=== PATIENT | male | born 1945 | race Caucasian/White ===

== ENCOUNTER 2020-03-21 17:18 | Emergency (ER) | payer MEDICARE, SELFPAY ==
[2020-03-21 17:31] VITALS: BP 187/81; PULSE 95; RESP 16; TEMP 37; O2SAT 98; BMI 22.8
--- NOTE | 2020-03-21 17:34 | CT_ITS ---
EXAMINATION: CT CERVICAL SPINE WITHOUT CONTRAST CLINICAL INFORMATION: Headache. Fall. COMPARISON: None TECHNIQUE: Multidetector CT imaging of the cervical spine was performed without the use of intravenous contrast. Coronal and sagittal reformats are reviewed. This CT examination was performed using dose optimization techniques as appropriate, variously including the following: *Automated exposure control *Adjustment of mA and/or kV according to patient size (this includes techniques or standardized protocols for targeted exams where dose is matched to indication/reason for exam; i.e. extremities or head) *Use of iterative reconstruction technique DLP: 432 mGy-cm FINDINGS: No acute fracture or subluxation. There is degenerative kyphosis of the cervical spine centered at C4-C5. Atlantooccipital alignment maintained. 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 Small endplate ossified is present at C4-C5, C5-C6 and C6-C7 with accompanying of vertebral arthrosis leading to at least mild bilateral foraminal narrowing at these levels. There is slight anterolisthesis of C3 on C4, and likely mild central canal stenosis at this level. Paraspinal soft tissues unremarkable. CT/CT cervical spine wo con IMPRESSION: No acute fracture or subluxation. Cervical spondylosis as described.
--- NOTE | 2020-03-21 17:34 | ED.AMS ---
HPI - Altered Mental Status General Chief Complaint: Fall Stated Complaint: general weakness, fall Time Seen by Provider: 03/21/20 17:40 Source: EMS Mode of arrival: EMS Limitations: no limitations History of Present Illness HPI narrative: 74-year-old male with past medical history of chronic migraines on morphine for pain management, anxiety and hypertension presents via EMS after a fall with an unknown down time. Patient believes that he was only out for 45 minutes, son was unable to contact him throughout the day and called the police department for a wellness check. Patient does report having all of his teeth pulled out approximately 1 week ago for dentures. Patient is covered in dirt, pants are visibly soiled with dirt and smells of urine, and his clothes are all wet. He is answering questions appropriately but needs redirection, is tremors, but describes no pain, chest pain or pressure, palpitations, shortness of breath, abdominal pain, abdominal distention, dysuria, fevers or chills. Related Data Home Medications Medication Instructions Recorded Confirmed alprazolam 0.5 mg PO DAILY 03/21/20 03/21/20 bupropion HCl 300 mg PO DAILY 03/21/20 03/21/20 methylphenidate HCl 1 tab PO QAM 03/21/20 03/21/20 morphine 1 cap PO BID 03/21/20 03/21/20 trazodone 100 mg PO DAILY 03/21/20 03/21/20 Allergies Allergy/AdvReac Type Severity Reaction Status Date / Time shellfish derived Allergy Intermediate GI S/E Verified 03/21/20 21:58 [SHELLFISH DERIVED] pollen extracts [POLLEN] Allergy Mild RUNNY NOSE Verified 03/21/20 21:58 Review of Systems Review of Systems: Constitutional: No Fever, No Chills ENT/Mouth: No Ear Pain, No Hoarseness, No sore throat Eyes: No Eye Pain, No Swelling, No Redness, No Foreign Body Cardiovascular: No Chest Pain, No SOB Respiratory: No Cough, No Dyspnea Gastrointestinal: No Nausea, No Vomiting, No Diarrhea, No abdominal Pain Genitourinary: No Dysuria, No Hematuria Musculoskeletal: No joint pain, No Myalgias, No Joint Swelling Skin: No Skin lacerations, No rash Neuro: No Weakness, No Numbness, No Paresthesias, No Loss of Consciousness, No Dizziness, No Headache Psych: No Anxiety/Panic, No Depression Heme/Lymph: no easy bruising, no Lymphadenopathy Endocrine: No Polyuria, No Polydipsia PMF Past Medical History Attestation statement: The following information was validated with the patient. Medical History Anxiety Hypertension Migraine Social History Social History Smoked in Last 30 Days: No Advance Directives: No Advance Directives Information Provided: Yes Physical Exam Vital Signs: Vital Signs: Last Vital Signs Temp 98.6 F 03/21/20 17:31 Pulse 93 03/22/20 00:07 Resp 18 03/22/20 00:07 BP 126/66 03/22/20 00:07 Pulse Ox 95 03/22/20 00:07 Body Mass Index 22.8 Appearance: Alert. Oriented X3. Mild distress. Head: Normal external exam. Normocephalic. Atraumatic. Eyes: PERRLA. EOMI. Conjunctiva and sclera normal. Eyelids normal. ENT: TM's Normal. Pharynx normal. Uvula midline. Moist mucous membranes. No trismus noted. No drooling noted. No muffled voice noted. Neck: Normal inspection. Neck supple. No adenopathy. No meningeal signs. No neck mass noted. CVS: Tachycardic heart rate and rhythm. Heart sound normal. No murmurs noted. Pulses equal to all extremities. Respiratory: No respiratory distress. Painless inspiration. Breath sounds normal. No wheezes/rales/rhonchi noted. Chest nontender. No accessory muscle usage noted or decreased air movement noted. Abdomen: Soft and nontender. Bowel sounds normal in all 4 quadrants. No distention noted. No organomegaly noted. No visible injury noted. Back: No CVA tenderness. Full range of motion noted. Skin: Small abrasion noted to the right elbow, no ecchymosis or swelling noted. Skin warm and dry. Normal skin color. Normal skin turgor. No rashes/lesions/lacerations noted. Extremities: No lower extremity edema. Extremities exhibit normal range of motion. Extremities nontender. Neuro: cranial nerves 2-12 intact, no focal neural deficits, strength 5/5 to all extremities, brisk capillary refill and pulses equal to all extremities, pulses in extremities equal to apical pulse. No motor deficit. No sensory deficit. NIH Stroke Scale Internal: Initial- Upon Arrival Level of Consciousness: Alert Level of Consciousness Questions: Answers both questions correctly Level of Consciousness Commands: Performs both tasks correctly Best Gaze: Normal Visual: No visual loss Facial Palsy: Normal Motor Arm (Right): No drift Motor Arm (Left): No drift Motor Leg (Right): No drift Motor Leg (Left): No drift Limb Ataxia: Absent Sensory: Normal Best Language: No aphasia Dysarthia: Normal Extinction and Inattention: No abnormality Score: 0 Course Course Course Narrative: 74-year-old male presents via EMS after a fall with an unknown down time. Patient stated he tripped and fell over threshold and was out for 45 minutes or so, RN discussion with his son leads 1 to believe that he has been down much longer than 45 minutes. Patient states he was crawling on the ground and struggling to get up for at least 45 minutes. Patient has dirt all over body, clothes are soaked with urine and rain consistent with him being outside. We will rule out rhabdo, ACS, will yanes scan CT, highly unlikely that this is a stroke as NIH stroke scale is 0. Oral temp is 98.6? we will begin fluid resuscitation with warmed fluids. Lab values indicate rhabdo, CT scan of the head indicates enlarged ventricles consistent with prior exams from 2017 with a suggestion of normal pressure hydrocephalus. Call out to Neurology per request of hospitalist. Hospitalist updated that Neurology has not yet responded, plan of care is to admit for rhabdo. Consultations Consultation #1: Neuro consult Time: 20:15 Consultation #2: Adrianna Time: 22:30 MDM - Altered Mental Status Differential Diagnosis Differential diagnosis: Likely altered mental status, delirium, encephalopathy, hypoglycemia, overdose polysubstance, renal failure, subarachnoid hemorrhage and sepsis Medical Records Attestation: I reviewed the patient's medical records. Lab Data Attestation: I reviewed the patient's lab results. Result diagrams: 03/21/20 18:00 03/21/20 18:01 Labs: Lab Results 03/21/20 03/21/20 03/21/20 Range/Units 18:00 18:00 18:00 WBC 12.8 H (4.8-10.8) X10*3/uL RBC 4.48 L (4.60-5.80) X10*6/uL Hgb 13.3 L (14.0-18.0) g/dl Hct 40.8 L (42-52) % MCV 91.1 (80-98) fL MCH 29.7 (27.0-33.0) pg MCHC 32.6 (31.0-36.0) g/dl RDW 12.4 (11.0-16.0) % Plt Count 316 (160-400) X10*3/uL MPV 9.0 L (9.4-12.4) fL Immature Gran % (Auto) 0.4 (0.0-0.4) % Neut % (Auto) 86.0 H (45-73) % Lymph % (Auto) 5.6 L (20-40) % [place] % (Auto) 7.8 (2-11) % Eos % (Auto) 0.0 (0-4) % Baso % (Auto) 0.2 (0-2) % Lymph # (Auto) 0.7 L (1.2-4.9) X10*3/uL [place] # (Auto) 1.0 (0.1-1.2) X10*3/uL Eos # (Auto) 0.0 (0.0-0.4) X10*3/uL Baso # (Auto) 0.0 (0.0-0.2) X10*3/uL Abs Immat Gran (auto) 0.05 H (0.00-0.03) X10*3/uL Absolute Neuts (auto) 11.0 H (2.0-8.3) X10*3/uL Absolute Nucleated RBC 0.000 (0.0-0.012) X10*3/uL Nucleated RBC % (auto) 0.0 (0.0-0.2) /100WBC PT 12.4 (10.8-13.0) SEC INR 1.0 (0.9-1.1) APTT 31.2 (24.1-38.0) SEC Sodium (135-145) mmol/L Potassium (3.3-5.1) mmol/l Chloride (96-108) mmol/L Carbon Dioxide (22-29) mmol/L Anion Gap (12-20) BUN (9-16) mg/dL Creatinine (0.5-1.4) mg/dL Estim Creat Clear Calc Estimated GFR Random Glucose (60-115) mg/dL Lactic Acid (0.5-2.0) mmol/L Calcium (8.4-10.2) mg/dL Total Bilirubin (0.0-1.0) mg/dL Direct Bilirubin (0.0-0.5) mg/dL AST (5-37) U/L ALT (0-40) U/L Alkaline Phosphatase (39-117) U/L Total Creatine Kinase (38-174) U/L Troponin I High Sens 3.9 (<3.5-35.0) ng/L C-Reactive Protein (< or = 0.50) mg/dL Total Protein (6.5-8.0) g/dL Albumin (3.5-5.0) g/dL Lipase (8-78) U/L Urine Color Urine Appearance Urine pH (5.0-8.0) Ur Specific Roe (1.005-1.025) Urine Protein (NEG-TRACE) MG/DL Urine Glucose (UA) (NEG) MG/DL Urine Ketones (NEG) MG/DL Urine Blood (NEG) Urine Nitrite (NEG) Ur Leukocyte Esterase (NEG) Urine RBC (0) /HPF Urine WBC (0-4) /HPF Ur Squamous Epith Cells /LPF Amorphous Sediment /LPF Urine Bacteria /LPF Urine Mucus /LPF COVID-19 ([facility]) (Negative) COVID-19 Clin Com 03/21/20 03/21/20 03/21/20 Range/Units 18:01 18:01 19:16 WBC (4.8-10.8) X10*3/uL RBC (4.60-5.80) X10*6/uL Hgb (14.0-18.0) g/dl Hct (42-52) % MCV (80-98) fL MCH (27.0-33.0) pg MCHC (31.0-36.0) g/dl RDW (11.0-16.0) % Plt Count (160-400) X10*3/uL MPV (9.4-12.4) fL Immature Gran % (Auto) (0.0-0.4) % Neut % (Auto) (45-73) % Lymph % (Auto) (20-40) % [place] % (Auto) (2-11) % Eos % (Auto) (0-4) % Baso % (Auto) (0-2) % Lymph # (Auto) (1.2-4.9) X10*3/uL [place] # (Auto) (0.1-1.2) X10*3/uL Eos # (Auto) (0.0-0.4) X10*3/uL Baso # (Auto) (0.0-0.2) X10*3/uL Abs Immat Gran (auto) (0.00-0.03) X10*3/uL Absolute Neuts (auto) (2.0-8.3) X10*3/uL Absolute Nucleated RBC (0.0-0.012) X10*3/uL Nucleated RBC % (auto) (0.0-0.2) /100WBC PT (10.8-13.0) SEC INR (0.9-1.1) APTT (24.1-38.0) SEC Sodium 136 (135-145) mmol/L Potassium 4.1 (3.3-5.1) mmol/l Chloride 99 (96-108) mmol/L Carbon Dioxide 24 (22-29) mmol/L Anion Gap 17 (12-20) BUN 17 H (9-16) mg/dL Creatinine 0.82 (0.5-1.4) mg/dL Estim Creat Clear Calc 73.7 Estimated GFR > 60 Random Glucose 86 (60-115) mg/dL Lactic Acid 1.2 (0.5-2.0) mmol/L Calcium 8.6 (8.4-10.2) mg/dL Total Bilirubin 1.2 H (0.0-1.0) mg/dL Direct Bilirubin 0.5 (0.0-0.5) mg/dL AST 55 H (5-37) U/L ALT 17 (0-40) U/L Alkaline Phosphatase 60 (39-117) U/L Total Creatine Kinase 3867 H (38-174) U/L Troponin I High Sens (<3.5-35.0) ng/L C-Reactive Protein 7.95 H (< or = 0.50) mg/dL Total Protein 6.8 (6.5-8.0) g/dL Albumin 4.1 (3.5-5.0) g/dL Lipase 4 L (8-78) U/L Urine Color YELLOW Urine Appearance CLEAR Urine pH 6.0 (5.0-8.0) Ur Specific Roe >= 1.030 H (1.005-1.025) Urine Protein NEG (NEG-TRACE) MG/DL Urine Glucose (UA) NEG (NEG) MG/DL Urine Ketones 15 (NEG) MG/DL Urine Blood 1+ H (NEG) Urine Nitrite NEG (NEG) Ur Leukocyte Esterase NEG (NEG) Urine RBC 5-9 H (0) /HPF Urine WBC 0-2 (0-4) /HPF Ur Squamous Epith Cells TRACE /LPF Amorphous Sediment 1+ /LPF Urine Bacteria NONE /LPF Urine Mucus TRACE /LPF COVID-19 ([facility]) (Negative) COVID-19 Clin Com 03/21/20 Range/Units 22:24 WBC (4.8-10.8) X10*3/uL RBC (4.60-5.80) X10*6/uL Hgb (14.0-18.0) g/dl Hct (42-52) % MCV (80-98) fL MCH (27.0-33.0) pg MCHC (31.0-36.0) g/dl RDW (11.0-16.0) % Plt Count (160-400) X10*3/uL MPV (9.4-12.4) fL Immature Gran % (Auto) (0.0-0.4) % Neut % (Auto) (45-73) % Lymph % (Auto) (20-40) % [place] % (Auto) (2-11) % Eos % (Auto) (0-4) % Baso % (Auto) (0-2) % Lymph # (Auto) (1.2-4.9) X10*3/uL [place] # (Auto) (0.1-1.2) X10*3/uL Eos # (Auto) (0.0-0.4) X10*3/uL Baso # (Auto) (0.0-0.2) X10*3/uL Abs Immat Gran (auto) (0.00-0.03) X10*3/uL Absolute Neuts (auto) (2.0-8.3) X10*3/uL Absolute Nucleated RBC (0.0-0.012) X10*3/uL Nucleated RBC % (auto) (0.0-0.2) /100WBC PT (10.8-13.0) SEC INR (0.9-1.1) APTT (24.1-38.0) SEC Sodium (135-145) mmol/L Potassium (3.3-5.1) mmol/l Chloride (96-108) mmol/L Carbon Dioxide (22-29) mmol/L Anion Gap (12-20) BUN (9-16) mg/dL Creatinine (0.5-1.4) mg/dL Estim Creat Clear Calc Estimated GFR Random Glucose (60-115) mg/dL Lactic Acid (0.5-2.0) mmol/L Calcium (8.4-10.2) mg/dL Total Bilirubin (0.0-1.0) mg/dL Direct Bilirubin (0.0-0.5) mg/dL AST (5-37) U/L ALT (0-40) U/L Alkaline Phosphatase (39-117) U/L Total Creatine Kinase (38-174) U/L Troponin I High Sens (<3.5-35.0) ng/L C-Reactive Protein (< or = 0.50) mg/dL Total Protein (6.5-8.0) g/dL Albumin (3.5-5.0) g/dL Lipase (8-78) U/L Urine Color Urine Appearance Urine pH (5.0-8.0) Ur Specific Roe (1.005-1.025) Urine Protein (NEG-TRACE) MG/DL Urine Glucose (UA) (NEG) MG/DL Urine Ketones (NEG) MG/DL Urine Blood (NEG) Urine Nitrite (NEG) Ur Leukocyte Esterase (NEG) Urine RBC (0) /HPF Urine WBC (0-4) /HPF Ur Squamous Epith Cells /LPF Amorphous Sediment /LPF Urine Bacteria /LPF Urine Mucus /LPF COVID-19 ([facility]) Negative (Negative) COVID-19 Clin Com See Note Imaging Data CT scan - head: Attestation: I personally reviewed and interpreted this imaging study as follows: Radiologist's impression: EXAMINATION: CT HEAD WITHOUT CONTRAST CLINICAL INFORMATION: Headache fall unknown downtime. COMPARISON: CT scan of the head and MRI of the brain December 2014. TECHNIQUE: Contiguous axial imaging was performed from the skull base to vertex without intravenous administration of contrast. This CT examination was performed using dose optimization techniques as appropriate, variously including the following: *Automated exposure control *Adjustment of mA and/or kV according to patient size (this includes techniques or standardized protocols for targeted exams where dose is matched to indication/reason for exam; i.e. extremities or head) *Use of iterative reconstruction technique DLP: 774 mGy-cm FINDINGS: There is prominence of the ventricle system out of proportion to the subarachnoid spaces as seen previously. There is no evidence of acute intracranial hemorrhage or territorial infarction. No abnormal mass effect or midline shift is seen. Pereira to white matter differentiation is well preserved. No extra-axial fluid collections are identified. . The osseous structures and soft tissues are normal. The mastoid air cells and visualized portions of the paranasal sinuses are well aerated. CT/CT head/brain wo con IMPRESSION: No acute intracranial pathology. Prominence of the ventricles are proportionate to the subarachnoid spaces which is unchanged compared with the prior CT in 2015.. This could reflect manifestation of extra vacuo expansion related to volume loss. However the possibility of normal pressure hydrocephalus cannot be excluded. CT scan - abdomen: Attestation: I personally reviewed and interpreted this imaging study as follows: Radiologist's impression: EXAMINATION CT CHEST, ABDOMEN AND PELVIS WITH CONTRAST CLINICAL INFORMATION: Trauma COMPARISON: None. TECHNIQUE: Multidetector volumetric CT imaging of the chest, abdomen and pelvis was obtained after the administration of 85 mL of intravenous Omnipaque 350 without immediate adverse reactions. Coronal and sagittal reformats were reviewed. This CT examination was performed using dose optimization techniques as appropriate, variously including the following: *Automated exposure control *Adjustment of mA and/or kV according to patient size (this includes techniques or standardized protocols for targeted exams where dose is matched to indication/reason for exam; i.e. extremities or head) *Use of iterative reconstruction technique DLP: 328 mGy-cm. FINDINGS: CHEST LUNGS/PLEURA: The lungs are clear with no evidence of inflammation or noncalcified nodules. There are a few calcified granulomata. There is no pleural effusion. No pleural mass or thickening. MEDIASTINUM/SOLE: Heart normal in size without pericardial effusion. Great vessels normal caliber. Coronary calcifications. CHEST WALL/AXILLA: Unremarkable. ABDOMEN/PELVIS HEPATOBILIARY: Liver normal in size, contour and morphology. Diffuse hepatic steatosis. No suspicious lesions. No intra or extrahepatic biliary dilation. Gallbladder unremarkable. PANCREAS: Unremarkable. SPLEEN: Unremarkable. ADRENAL GLANDS: Unremarkable. KIDNEYS, URETERS AND BLADDER: Kidneys normal in size, axis and morphology. There are 2 nonobstructive calculi within the right kidney, and 3 nonobstructive calculi within the left kidney ranging in size from punctate to 2 mm. No hydronephrosis or urinary calculi. Ureters normal in course and caliber. Bladder grossly unremarkable.. GASTROINTESTINAL TRACT: Scattered left colonic diverticula. No evidence of diverticulitis. Normal appendix. Stomach and small bowel unremarkable. PELVIC VISCERA: Prostate shows heterogeneous attenuation and dystrophic calcification. There is low-attenuation towards the prostate base which may represent a TURP defect. Seminal vesicles are symmetric. LYMPH NODES: No lymphadenopathy. PERITONEUM/BODY WALL: Unremarkable. VASCULAR STRUCTURES: Unremarkable for age. OSSEOUS STRUCTURES No acute or suspicious osseous abnormalities. Degenerative changes present throughout the spine and bilateral hips. CT/CT abdomen pelvis wo con IMPRESSION: * No evidence of acute traumatic injury within the chest, abdomen or pelvis. * Coronary calcifications. * Diffuse hepatic steatosis. * Nonobstructive bilateral intrarenal calculi. * Diverticulosis without evidence of diverticulitis. * Heterogeneous low-attenuation change within the central prostate gland. Suspect previous TURP. ECG Data ECG #1: Attestation: I personally reviewed and interpreted this ECG as follows: ECG interpretation date: 03/21/20 ECG interpretation time: 17:59 Prior ECG tracings: available for review Interpretation: Vent. Rate : 090 BPM Atrial Rate : 090 BPM P-R Int : 166 ms QRS Dur : 084 ms QT Int : 374 ms P-R-T Axes : 050 -02 024 degrees QTc Int : 457 ms Normal sinus rhythm Septal infarct (cited on or before 21-MAR-2020) Abnormal ECG When compared with ECG of 01-JAN-2015 17:53, No significant change was found Scores Heart Score History: -0- slightly suspicious ECG: -0- normal Age: -2- > or = 65 Risk factory: -1- 1 or 2 risk factors Troponin: -0- < or = normal limit Score: 3 Risk: 1.7% Discharge Plan Discharge Clinical Impression: (Idiopathic) normal pressure hydrocephalus Rhabdomyolysis Qualifiers: Rhabdomyolysis type: traumatic Encounter type: initial encounter Qualified Code(s): T79.6XXA - Traumatic ischemia of muscle, initial encounter Patient Disposition: Admitted As Inpatient
[2020-03-21 18:08] LABS: MANUAL DIFF FLAG NO
[2020-03-21 18:09] LABS: Basophils Percent Auto 0.2 % (0-2); Hematocrit 40.8 % (42-52); Hemoglobin 13.3 g/dl (14.0-18.0); Imm Gran Abs Auto 0.05 X10*3/uL (0.00-0.03); Imm Gran Pct Auto 0.4 % (0.0-0.4); Lymphocytes Absolute Auto 0.7 X10*3/uL (1.2-4.9); Lymphocytes Percent Auto 5.6 % (20-40); Mean Corpuscular HGB Conc 32.6 g/dl (31.0-36.0); Mean Corpuscular Hemoglobin 29.7 pg (27.0-33.0); Mean Corpuscular Volume 91.1 fL (80-98); Monocytes Percent Auto 7.8 % (2-11); Platelet Count 316 X10*3/uL (160-400); Red Blood Count 4.48 X10*6/uL (4.60-5.80); Red Cell Distribution Width 12.4 % (11.0-16.0); White Blood Count 12.8 X10*3/uL (4.8-10.8)
[2020-03-21] MEDS: 0.9 % Sodium Chloride 1,000 ML 999 ML IVCONT ×2 (18:20→22:00)
[2020-03-21 18:21] LABS: Prothrombin Time 12.4 SEC (10.8-13.0)
[2020-03-21 18:24] LABS: Partial Thromboplastin Time 31.2 SEC (24.1-38.0)
[2020-03-21 18:28] LABS: Lactic Acid 1.2 mmol/L (0.5-2.0)
[2020-03-21 18:35] LABS: Troponin-I High Sensitivity 3.9 ng/L (<3.5-35.0)
[2020-03-21 18:43] LABS: Alanine Aminotransferase 17 U/L (0-40); Albumin Level 4.1 g/dL (3.5-5.0); Alkaline Phosphatase 60 U/L (39-117); Anion Gap 17 (12-20); Aspartate Amino Transferase 55 U/L (5-37); Bilirubin Direct 0.5 mg/dL (0.0-0.5); Bilirubin Total 1.2 mg/dL (0.0-1.0); Blood Urea Nitrogen 17 mg/dL (9-16); C Reactive Protein 7.95 mg/dL (< or = 0.50); Calcium 8.6 mg/dL (8.4-10.2); Carbon Dioxide 24 mmol/L (22-29); Chloride 99 mmol/L (96-108); Creatinine Clr Calc Pharmacy 73.7; Estimated Glomerular Filt Rate > 60; Glucose Random 86 mg/dL (60-115); Lipase 4 U/L (8-78); Potassium 4.1 mmol/l (3.3-5.1); Sodium 136 mmol/L (135-145); Total Protein 6.8 g/dL (6.5-8.0)
--- NOTE | 2020-03-21 19:13 | PC.NURSE ---
gisella Porras phone number [phone]
[2020-03-21 19:26] LABS: Glucose Urine UA NEG (NEG); Leukocyte Esterase Urine NEG (NEG); Nitrite Urine NEG (NEG); Specific Gravity - Urine >= 1.030 (1.005-1.025); Urine Blood 1+ (NEG); Urine Ketones 15 MG/DL (NEG); Urine Protein NEG (NEG-TRACE)
[2020-03-21 19:28] LABS: Appearance Urine CLEAR; Color Urine YELLOW
[2020-03-21 19:34] LABS: WBC Urine 0-2 /HPF (0-4)
[2020-03-21 19:35] LABS: Amorphous Sediment Urine 1+ /LPF; Mucus Urine TRACE /LPF; Squamous Epithelial Cell Urine TRACE /LPF
[2020-03-21 22:45] LABS: COVID-19 Test Negative (Negative); IDNOW Serial# 9DD0AD1C
[2020-03-22 00:07] VITALS: BP 126/66; PULSE 93; RESP 18; O2SAT 95
[2020-03-22 03:45] VITALS: BP 102/69; PULSE 83; RESP 16; O2SAT 96
[2020-03-22] MEDS: buPROPion HCl XL 300 MG TAB.ER.24H PO (06:12)
[2020-03-22] MEDS: Lactated Ringers 1,000 ML 100 ML IVCONT (06:14)
[2020-03-22] MEDS: Morphine Sulfate ER 15 MG TABLET.ER PO (06:33)
--- NOTE | 2020-03-22 06:50 | P.HPHOSP_ITS ---
History of Present Illness Date of Service: 03/22/20 Chief Complaint: Fall, laloo This is a 74-year-old male with past medical history of hypertension, prostate cancer and anxiety who presents to the hospital with complaints of a fall. Patient denies any loss of consciousness, no dizziness, no palpitations, he does not complain of any pain, or hitting his head. Patient reports a mechanical fall. He was down for a while because he could not get up about 45 minutes. He denies any loss of bladder or urinary control. He reports that he has been having more trouble with ambulation and balance lately and has been having frequent falls. On arrival to the ED hemodynamically stable with no significant abnormal vitals Labs are significant WBC count of 12.8, hemoglobin of 13.3, sodium of 136, BUN of 17, creatinine of 0.82, CPK of 3867, UA that is positive for blood and RBC with no evidence of infection, COVID-19 negative, EKG shows normal sinus rhythm with no new changes, Head CT shows prominent ventricle proportionate to the subarachnoid space H which unchanged from CT in 2015. CT chest/abdomen Shows no evidence of acute traumatic injury within the chest abdomen or pelvis, diffuse hepatic steatosis, Cervical spine CT negative Past medical history: Hypertension, prostate cancer, anxiety and depression Past surgical history: Rotator cuff repair Family history: Denies Social history: Walks independently, comes from home, lives alone, denies any tobacco alcohol or illicit drugs Review of Systems Review of Systems: Yes all other systems are reviewed and are negative [facility] Medical History (Updated 03/22/20 @ 07:00 by Marbin Rodas MD) Anxiety Hypertension Migraine Social History Smoked in Last 30 Days: No Advance Directives: No Advance Directives Information Provided: Yes Meds Allergies Allergy/AdvReac Type Severity Reaction Status Date / Time shellfish derived Allergy Intermediate GI S/E Verified 03/21/20 21:58 [SHELLFISH DERIVED] pollen extracts [POLLEN] Allergy Mild RUNNY NOSE Verified 03/21/20 21:58 Home Medications Medication Instructions Recorded Confirmed Type alprazolam 0.5 mg PO DAILY 03/21/20 03/21/20 History bupropion HCl 300 mg PO DAILY 03/21/20 03/21/20 History methylphenidate HCl 1 tab PO QAM 03/21/20 03/21/20 History morphine 1 cap PO BID 03/21/20 03/21/20 History trazodone 100 mg PO DAILY 03/21/20 03/21/20 History Physical Exam Vital Signs and Narrative: Vital Signs: Last Vital Signs Temp 98.6 F 03/21/20 17:31 Pulse 83 03/22/20 03:45 Resp 16 03/22/20 03:45 BP 102/69 03/22/20 03:45 Pulse Ox 96 03/22/20 03:45 Body Mass Index 22.8 Const: General: cooperative and no acute distress Orientation/consciousness: patient oriented x3 Eyes: General: appearance normal, both eyes and all related structures Resp: Effort & Inspection: normal respiratory effort and able to speak in complete sentences Cardio: Rate: regular rate Rhythm: regular rhythm GI: Palpation (GI): Soft to palpation Auscultation: normal bowel sounds Skin: General skin exam: no rashes or lesions noted Neuro: General: patient oriented x3 Cognition (Neuro): normal cognition Extrem: General: Yes normal to inspection and Yes no pedal edema Results Labs CBC and Chem 7: 03/21/20 18:00 03/21/20 18:01 Labs: Laboratory Results - last 24 hr 03/21/20 03/21/20 03/21/20 18:00 18:00 18:00 MCV 91.1 MCH 29.7 MCHC 32.6 RDW 12.4 Plt Count 316 MPV 9.0 L Immature Gran % (Auto) 0.4 Neut % (Auto) 86.0 H Lymph % (Auto) 5.6 L [place] % (Auto) 7.8 Eos % (Auto) 0.0 Baso % (Auto) 0.2 Lymph # (Auto) 0.7 L [place] # (Auto) 1.0 Eos # (Auto) 0.0 Baso # (Auto) 0.0 Abs Immat Gran (auto) 0.05 H Absolute Neuts (auto) 11.0 H Absolute Nucleated RBC 0.000 Nucleated RBC % (auto) 0.0 PT 12.4 INR 1.0 APTT 31.2 Anion Gap Estim Creat Clear Calc Estimated GFR Random Glucose Lactic Acid Calcium Total Bilirubin Direct Bilirubin AST ALT Alkaline Phosphatase Total Creatine Kinase Troponin I High Sens 3.9 C-Reactive Protein Total Protein Albumin Lipase Urine Color Urine Appearance Urine pH Ur Specific [place] Urine Protein Urine Glucose (UA) Urine Ketones Urine Blood Urine Nitrite Ur Leukocyte Esterase Urine RBC Urine WBC Ur Squamous Epith Cells Amorphous Sediment Urine Bacteria Urine Mucus COVID-19 ([facility]FA[facility]) COVID-19 Clin Com 03/21/20 03/21/20 03/21/20 18:01 18:01 19:16 MCV MCH MCHC RDW Plt Count MPV Immature Gran % (Auto) Neut % (Auto) Lymph % (Auto) [place] % (Auto) Eos % (Auto) Baso % (Auto) Lymph # (Auto) [place] # (Auto) Eos # (Auto) Baso # (Auto) Abs Immat Gran (auto) Absolute Neuts (auto) Absolute Nucleated RBC Nucleated RBC % (auto) PT INR APTT Anion Gap 17 Estim Creat Clear Calc 73.7 Estimated GFR > 60 Random Glucose 86 Lactic Acid 1.2 Calcium 8.6 Total Bilirubin 1.2 H Direct Bilirubin 0.5 AST 55 H ALT 17 Alkaline Phosphatase 60 Total Creatine Kinase 3867 H Troponin I High Sens C-Reactive Protein 7.95 H Total Protein 6.8 Albumin 4.1 Lipase 4 L Urine Color YELLOW Urine Appearance CLEAR Urine pH 6.0 Ur Specific [place] >= 1.030 H Urine Protein NEG Urine Glucose (UA) NEG Urine Ketones 15 Urine Blood 1+ H Urine Nitrite NEG Ur Leukocyte Esterase NEG Urine RBC 5-9 H Urine WBC 0-2 Ur Squamous Epith Cells TRACE Amorphous Sediment 1+ Urine Bacteria NONE Urine Mucus TRACE COVID-19 ([facility]) COVID-19 Clin Com 03/21/20 22:24 MCV MCH MCHC RDW Plt Count MPV Immature Gran % (Auto) Neut % (Auto) Lymph % (Auto) [place] % (Auto) Eos % (Auto) Baso % (Auto) Lymph # (Auto) [place] # (Auto) Eos # (Auto) Baso # (Auto) Abs Immat Gran (auto) Absolute Neuts (auto) Absolute Nucleated RBC Nucleated RBC % (auto) PT INR APTT Anion Gap Estim Creat Clear Calc Estimated GFR Random Glucose Lactic Acid Calcium Total Bilirubin Direct Bilirubin AST ALT Alkaline Phosphatase Total Creatine Kinase Troponin I High Sens C-Reactive Protein Total Protein Albumin Lipase Urine Color Urine Appearance Urine pH Ur Specific [place] Urine Protein Urine Glucose (UA) Urine Ketones Urine Blood Urine Nitrite Ur Leukocyte Esterase Urine RBC Urine WBC Ur Squamous Epith Cells Amorphous Sediment Urine Bacteria Urine Mucus COVID-19 ([facility]) Negative COVID-19 Clin Com See Note Imaging Radiologist's Impressions: Impressions Abdomen/Pelvis CT 03/21/20 17:34 IMPRESSION: * No evidence of acute traumatic injury within the chest, abdomen or pelvis. * Coronary calcifications. * Diffuse hepatic steatosis. * Nonobstructive bilateral intrarenal calculi. * Diverticulosis without evidence of diverticulitis. * Heterogeneous low-attenuation change within the central prostate gland. Suspect previous TURP. Cervical Spine CT 03/21/20 17:34 IMPRESSION: No acute fracture or subluxation. Cervical spondylosis as described. Chest CT 03/21/20 17:34 IMPRESSION: * No evidence of acute traumatic injury within the chest, abdomen or pelvis. * Coronary calcifications. * Diffuse hepatic steatosis. * Nonobstructive bilateral intrarenal calculi. * Diverticulosis without evidence of diverticulitis. * Heterogeneous low-attenuation change within the central prostate gland. Suspect previous TURP. Head CT 03/21/20 17:34 IMPRESSION: No acute intracranial pathology. Prominence of the ventricles are proportionate to the subarachnoid spaces which is unchanged compared with the prior CT in 2015.. This could reflect manifestation of extra vacuo expansion related to volume loss. However the possibility of normal pressure hydrocephalus cannot be excluded. Assessment and Plan (1) Rhabdomyolysis: Qualifiers: Encounter type: initial encounter Rhabdomyolysis type: traumatic Qualified Code(s): T79.6XXA - Traumatic ischemia of muscle, initial encounter Status: Acute (2) Fall: Qualifiers: Encounter type: initial encounter Qualified Code(s): W19.XXXA - Unsp ecified fall, initial encounter Status: Acute (3) Hypertension: Qualifiers: Hypertension type: essential hypertension Qualified Code(s): I10 - E ssential (primary) hypertension Status: Acute (4) (Idiopathic) normal pressure hydrocephalus: Status: Acute This is a 74-year-old male who presents to the hospital with a fall, found to have rhabdomyolysis, and possible normal pressure hydrocephalus # rhabdomyolysis -secondary to fall - no evidence of JET at this time - start on IV fluids - follow CPK # fall - most likely mechanical due to the underlying normal pressure hydrocephalus - will consult PT - admit to telemetry # possibility of normal pressure hydrocephalus - has been having difficulty with balance, denies urinary or bladder control - will consult neurology DVT prophylaxis: Heparin
--- NOTE | 2020-03-22 07:32 | PC.NURSE ---
report taken from mervin acosta pt lying in bed, appears restless. awaiting inpt admission. pt complaining sandra been down here almost a whole day, sandra not been given a single thing to eat! you guys have no food down here at all! pt educated about available food options in the environment of emergency medicine. pt breakfast ordered. asking for coffee, provided. pt also educated about his iv placement and need to keep arm straight to ensure pump alarm does not go off.
[2020-03-22] MEDS: Morphine Sulfate ER 30 MG TABLET.ER PO (08:14)
[2020-03-22] MEDS: traZODone HCL 100 MG TABLET PO (08:59)
[2020-03-22] MEDS: Methylphenidate HCl 10 MG TABLET PO (08:59)
[2020-03-22] MEDS: ALPRAZolam 0.5 MG TABLET PO (08:59)
--- NOTE | 2020-03-22 09:07 | PC.NURSE ---
PT GIVEN MORNING MEDS W BREAKFAST, APPEARS IN BETTER SPIRITS THAN EARLIER. CONVERSING CALM AND COOPERATIVELY W THIS RN.
[2020-03-22 10:59] VITALS: BP 102/69; PULSE 83; O2SAT 96
--- NOTE | 2020-03-22 11:44 | PC.NURSE ---
report given to s3 rn for [facility] overflow.
--- NOTE | 2020-03-22 12:15 | PC.NURSE ---
pt dressed, attempting to find exit door, sts im leaving ama, i have headaches and i cannot stay like this! you wake me up every 5 minutes!'. pt educated about need for inpt admission, what plan of care was and that if he would like to leave ama, to speak with admitting physician before leaving. pt agreeable, ambulating w steady gait back to room, dr yeager aware, on his way to speak w pt.
--- NOTE | 2020-03-22 12:35 | PC.NURSE ---
pt continuing to argue w staff at nurses station, pt being redirceted to room for safety, hardly redirectable at this time. dr yeager at bedside to discusss leaving ama.
--- NOTE | 2020-03-22 12:44 | PC.NURSE ---
pt speaking w hospitalist, hospitalist attempting to get pt to agree to admission, pt very adamant on leaving. pt is alert and oriented w steady gait, speaking in full clear sentences, rr even/unlabored. pt explained by hospitalist risks of leaving ama, pt verbalizes understanding. pt grabbed personal items in bag and ambulated to waiting room w steady gait.
--- NOTE | 2020-03-22 12:53 | PM.EVENT ---
Event Note Date of Service: 03/22/20 Event Note: Discharge note Discharge diagnosis Fall, rhabdomyolysis Left AMA Patient was seen in the emergency. He did not want to be admitted to the hospital and decided to leave against medical advice. I spent almost a minute convincing him to stay to monitor his kidney function and to continue IV fluid. He decided to leave the hospital and to go back home.
== END 2020-03-22 18:45 | disposition left against medical advice (07) ==
LOC: HO.ED 03-22 00:15 → HO.S3 03-22 11:16
PROVIDERS: Nurse Practitioner Family; Emergency Provider Emergency Medicine
DX: G91.2 (Idiopathic) normal pressure hydrocephalus (principal); S09.90XA Unspecified injury of head, initial encounter; T79.6XXA Traumatic ischemia of muscle, initial encounter; G44.309 Post-traumatic headache, unspecified, not intractable; I10 Essential (primary) hypertension; W19.XXXA Unspecified fall, initial encounter; R29.700 NIHSS score 0; W01.0XXA Fall on same level from slipping, tripping and stumbling without subsequent striking against object, initial encounter; Y93.9 Activity, unspecified; Y92.9 Unspecified place or not applicable; Y99.9 Unspecified external cause status; Z20.828 Contact with and (suspected) exposure to other viral communicable diseases; Z79.899 Other long term (current) drug therapy
CPT/HCPCS: 36415; 70450; 71250; 72125; 74176; 80048; 80076; 81001; 82550; 83605; 83690; 84484; 85025; 85610; 85730; 86140; 87040; 87635; 93005; 96360; 96361; 97162; 99284

== ENCOUNTER 2020-08-05 21:19 | Emergency (ER) | payer SELFPAY ==
--- NOTE | ~2020-08-05 | XR_ITS ---
EXAMINATION: XR ELBOW, RIGHT XR FOREARM, RIGHT CLINICAL INFORMATION: Pain. Fall. COMPARISON: None TECHNIQUE: 3 views of the right elbow. 2 views of the right forearm. FINDINGS: Right elbow: No fracture or dislocation. Alignment is anatomic. Joint spaces are maintained. No elbow joint effusion. The soft tissues appear unremarkable. Right forearm: No fracture or dislocation. No cortical disruption. Appropriate alignment at the wrist and elbow. The soft tissues are unremarkable. XR/XR elbow RT min 3V IMPRESSION: No fracture or malalignment involving the right elbow or forearm.
--- NOTE | ~2020-08-05 | XR_ITS ---
EXAMINATION: XR ELBOW, RIGHT XR FOREARM, RIGHT CLINICAL INFORMATION: Pain. Fall. COMPARISON: None TECHNIQUE: 3 views of the right elbow. 2 views of the right forearm. FINDINGS: Right elbow: No fracture or dislocation. Alignment is anatomic. Joint spaces are maintained. No elbow joint effusion. The soft tissues appear unremarkable. Right forearm: No fracture or dislocation. No cortical disruption. Appropriate alignment at the wrist and elbow. The soft tissues are unremarkable. XR/XR forearm RT 2V IMPRESSION: No fracture or malalignment involving the right elbow or forearm.
--- NOTE | ~2020-08-05 | CT_ITS ---
EXAMINATION: CT HEAD WITHOUT CONTRAST CT CERVICAL SPINE WITHOUT CONTRAST CLINICAL INFORMATION: Fall COMPARISON: CT head, CT cervical spine 03/21/2020 TECHNIQUE: Imaging was performed from the skull base to vertex without intravenous administration of contrast. In addition, helical noncontrast CT imaging was acquired through the cervical spine and source images were reviewed along with axial reconstructions and sagittal and coronal MPRs. [This CT examination was performed using dose optimization techniques as appropriate, variously including the following: *Automated exposure control *Adjustment of mA and/or kV according to patient size (this includes techniques or standardized protocols for targeted exams where dose is matched to indication/reason for exam; i.e. extremities or head) *Use of iterative reconstruction technique] DLP: 955 mGy-cm FINDINGS: HEAD: No intracranial mass, hemorrhage, or midline shift is visualized. There is atrophy with prominence of the ventricles and the sulci and hypodensity of the periventricular white matter due to chronic small vessel ischemic disease. There are vascular calcifications of the internal carotid arteries bilaterally. No extra-axial collections are identified. The paranasal sinuses and mastoid air cells are well aerated. CERVICAL SPINE: There is no evidence of acute cervical spine fracture. Vertebral bodies remain normal in height. Cervical vertebrae have normal alignment. There is reversal the normal lordotic curve of the cervical spine. This is chronic unchanged since prior study. There is advanced multilevel degenerative spondylosis of the cervical spine with disc height narrowing and endplate spurs and facet joint arthrosis 1 cm hypodense thyroid nodule right lobe of thyroid. This is unchanged since prior CAT scan 03/21/2020. No follow-up imaging would be recommended. Limited assessment of the lung apices is unremarkable. CT/CT cervical spine wo con IMPRESSION: 1. No acute intracranial pathology. 2. No CT evidence of acute cervical spine fracture or traumatic subluxation
[2020-08-05 21:23] VITALS: BP 160/90; PULSE 75; O2SAT 98
[2020-08-05 21:28] VITALS: BP 140/88; PULSE 77; RESP 16; TEMP 36.8; O2SAT 96; BMI 23.1
--- NOTE | 2020-08-05 22:05 | ED_ITS ---
HPI - Fall General Chief Complaint: Fall Stated Complaint: fall/laceration Time Seen by Provider: 08/05/20 21:55 Source: patient Mode of arrival: EMS Limitations: no limitations History of Present Illness HPI Narrative: Patient comes to emergency room after falling down the stairs and having a laceration in his forehead. Patient states that prior to arrival, he was napping, he heard the police going inside his house to check on him, patient is to up, started walking down the stairs to Greet them, patient tripped and fell down the stairs. Patient denies loss of consciousness. Patient complaining of chronic neck pain, no new pain. Patient denies pain anywhere else. Patient states that the reason the police came to check on him is because his son had been calling for several days to check on him but the patient did not answer the phone. 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 Patient states that otherwise he has been doing well. Patient states that he takes 50 mg of extended release morphine twice a day for chronic headaches, since age 16 which works well to control the migraines. MD complaint: fall Related Data Home Medications Medication Instructions Recorded Confirmed alprazolam 0.5 mg PO DAILY 03/21/20 03/21/20 bupropion HCl 300 mg PO DAILY 03/21/20 03/21/20 methylphenidate HCl 1 tab PO QAM 03/21/20 03/21/20 morphine 1 cap PO BID 03/21/20 03/21/20 trazodone 100 mg PO DAILY 03/21/20 03/21/20 Allergies Allergy/AdvReac Type Severity Reaction Status Date / Time shellfish derived Allergy Intermediate GI S/E Verified 03/21/20 21:58 [SHELLFISH DERIVED] pollen extracts [POLLEN] Allergy Mild RUNNY NOSE Verified 03/21/20 21:58 Review of Systems Review of Systems: Constitutional : No Weight loss, No Fever, No Chills, No Night Sweats, No Fatigue, No Malaise ENT/Mouth : No Hearing loss, No Ear Pain, No Nasal Congestion, No Sinus Pain, No Hoarseness, No sore throat, No Rhinorrhea, No Swallowing Difficulty Eyes: No Eye Pain, No Swelling, No Redness, No Foreign Body, No Discharge, No Vision Changes Cardiovascular : No Chest Pain, No SOB, No Dyspnea on Exertion, No Orthopnea, No Edema, No Palpitations Respiratory : No Cough, No Sputum, No Wheezing, No Smoke Exposure, No Dyspnea Gastrointestinal : No Nausea, No Vomiting, No Diarrhea, No Constipation, No abdominal Pain, No Hematochezia, No Melena Genitourinary : no irregular bleeding, No Dysuria, No Urinary Frequency, No Hematuria, No Urinary Incontinence, No Urgency, No Flank Pain, No Urinary Flow Changes, No Hesitancy Musculoskeletal : Complaining of chronic neck pain, no new pain Skin : Laceration to the forehead/scalp on the right side Neuro : No Weakness, No Numbness, No Paresthesias, No Loss of Consciousness, No Dizziness, No Headache Psych : No Anxiety/Panic, No Depression, No SI/HI/AH/VH, No Social Issues, Heme/Lymph: No Bruising, No Bleeding,No Lymphadenopathy Endocrine : No Polyuria, No Polydipsia, No Temperature Intolerance PMFSH Past Medical History Medical History Anxiety Hypertension Migraine Social History Social History Advance Directives: No Advance Directives Information Provided: Yes Physical Exam Vital Signs: Vital Signs: Last Vital Signs Temp 98.2 F 08/05/20 21:28 Pulse 77 08/05/20 21:28 Resp 16 08/05/20 21:28 BP 140/88 H 08/05/20 21:28 Pulse Ox 96 08/05/20 21:28 Body Mass Index 23.1 Appearance: Alert. Oriented X3. No acute distress. Eyes: Pupils equal, round and reactive to light. ENT: Pharynx normal. Neck: In C-spine precautions/color, no pain to palpation over the C-spine, no palpable step-offs CVS: Normal heart rate and rhythm. Pulses normal. Normal S1 and S2 Respiratory: No respiratory distress. Breath sounds normal. No Wheezing. No rales Abdomen: Soft and nontender. No rigidity. No distention. good BS x4 Back: No pain to palpation over the thoracic/lumbar spine Skin: Skin warm and dry. Laceration to the right side of the forehead/scalp, bleeding controlled Extremities: No lower extremity edema. Patient has left upper extremity splint for an old fracture, mild pain on the left elbow to palpation, able to flex and extend, sensation in fingers and hand intact. Neuro: Oriented X 3. No motor deficit. No sensory deficit. Moving all extermities. No slurred speech. Course Course Course Narrative: Patient's laceration extended from the scalp into the forehead, patient received 6 jose and the [address], no acute findings. Procedures Laceration Laceration 1: Site: scalp Size (cm): 12 Description: linear and flap Depth: simple, single layer Local Anesthetic: lidocaine 2% Amount of anesthesia used (mL): 15 Pre-repair: wound explored Skin layer closed with: nylon Size (cm): 6-0 Number of sutures: 6 Technique: simple, interrupted Size: other (Jose) Number of sutures: 6 MDM - Fall Imaging Data Head and neck CT: Radiologist's impression: HEAD: No intracranial mass, hemorrhage, or midline shift is visualized. There is atrophy with prominence of the ventricles and the sulci and hypodensity of the periventricular white matter due to chronic small vessel ischemic disease. There are vascular calcifications of the internal carotid arteries bilaterally. No extra-axial collections are identified. The paranasal sinuses and mastoid air cells are well aerated. CERVICAL SPINE: There is no evidence of acute cervical spine fracture. Vertebral bodies remain normal in height. Cervical vertebrae have normal alignment. There is reversal the normal lordotic curve of the cervical spine. This is chronic unchanged since prior study. There is advanced multilevel degenerative spondylosis of the cervical spine with disc height narrowing and endplate spurs and facet joint arthrosis 1 cm hypodense thyroid nodule right lobe of thyroid. This is unchanged since prior CAT scan 03/21/2020. No follow-up imaging would be recommended. Limited assessment of the lung apices is unremarkable. CT/CT cervical spine wo con IMPRESSION: 1. No acute intracranial pathology. 2. No CT evidence of acute cervical spine fracture or traumatic subluxation Right elbow and forearm: Radiologist's impression: FINDINGS: Right elbow: No fracture or dislocation. Alignment is anatomic. Joint spaces are maintained. No elbow joint effusion. The soft tissues appear unremarkable. Right forearm: No fracture or dislocation. No cortical disruption. Appropriate alignment at the wrist and elbow. The soft tissues are unremarkable. XR/XR elbow RT min 3V IMPRESSION: No fracture or malalignment involving the right elbow or forearm. Discharge Plan Discharge Clinical Impression: Fall, Laceration Patient Disposition: Home, Self-Care Instructions: Staple Care (ED), Head Laceration (ED) Additional Instructions: The sutures in the jose need to be removed in 7-10 days. Please follow-up with your primary care physician tomorrow. If you have any worsening or new symptoms, please return to the emergency room or call 911 Prescriptions: No Action alprazolam 0.5 mg tablet 0.5 mg PO DAILY RF: 0 trazodone 100 mg tablet 100 mg PO DAILY RF: 0 methylphenidate HCl 18 mg tablet extended release 24hr 1 tab PO QAM RF: 0 bupropion HCl 300 mg tablet extended release 24 hr 300 mg PO DAILY RF: 0 morphine 50 mg capsule,extend.release pellets 1 cap PO BID RF: 0
[2020-08-05] MEDS: Morphine Sulfate ER 30 MG TABLET.ER 60 MG PO (22:23)
[2020-08-05] MEDS: Lidocaine HCl 2 % MPF 5 ML VIAL 10 ML INFILTRATI (22:25)
[2020-08-06 04:00] VITALS: BP 114/60; PULSE 72; RESP 16; O2SAT 95
== END 2020-08-06 04:19 | disposition home or self-care (01) ==
PROVIDERS: Emergency Provider Emergency Medicine
DX: S01.01XA Laceration without foreign body of scalp, initial encounter (principal); W10.8XXA Fall (on) (from) other stairs and steps, initial encounter; I10 Essential (primary) hypertension; Y93.89 Activity, other specified; Y92.018 Other place in single-family (private) house as the place of occurrence of the external cause; Y99.9 Unspecified external cause status; Z79.891 Long term (current) use of opiate analgesic
CPT/HCPCS: 12004; 70450; 72125; 73080; 73090; 99284

== ENCOUNTER → 2021-06-30 13:55 | Outpatient (BNVA) | payer MEDICARE, SELFPAY | PROVIDERS: PCP Internal Medicine; Visit Provider Nurse Practitioner Family | DX: M79.604 Pain in right leg (principal); M79.605 Pain in left leg; M79.10 Myalgia, unspecified site; I10 Essential (primary) hypertension; R05.8 Other specified cough | CPT/HCPCS: 99202 ==

== ENCOUNTER → 2021-07-28 09:36 | Outpatient (BNVA) | payer MEDICARE, SELFPAY | PROVIDERS: PCP Internal Medicine; Visit Provider Nurse Practitioner Family | DX: M79.604 Pain in right leg (principal); M79.605 Pain in left leg; M25.571 Pain in right ankle and joints of right foot; M25.572 Pain in left ankle and joints of left foot; M19.90 Unspecified osteoarthritis, unspecified site | CPT/HCPCS: Q3014 ==

== ENCOUNTER 2024-09-30 23:20 | Inpatient (IN) | payer MEDICARE, SELFPAY ==
--- OUTSIDE RECORDS SUMMARY | 2015-07-22 11:10 | XMS_ITS | Continuity of Care Document ---
Author Organization [facility] Address [address] [address] Phone Care Team Providers Care Enterostomal Nurse Name Role Phone Rinku Rajan MD Unavailable Unavailabl e Medications Medication Instructions Dosage Effective Dates (start - stop) Status Comments Provigil 100 mg tablet take 2 tablet by oral route every day in the morning 200 MG - Active trazodone 100 mg tablet take 1-2 tablet by oral route nightly - Active alprazolam 0.5 mg tablet take 1 tablet by oral route 2 times every day 0.5 MG - Active Wellbutrin XL 300 mg 24 hr tablet, extended release take 1 tablet by oral route every day 300 MG - Active DHEA 50 mg capsule - Active Procedures Procedure Date Lab_Drug Screen MD_Follow Up Level 5 BH_Intervention_15 Min Each Lab_Drug Screen MD_Follow Up Level 4 MD_Follow Up Level 4 Lab_Drug Screen MD_Follow Up Level 4 Lab_Drug Screen MD_Follow Up Level 4 Lab_Drug Screen Cancellation_Exception MD_Follow Up Level 4 Lab_Drug Screen MD_Follow Up Level 4 Lab_Drug Screen MD_Follow Up Level 4 Lab_Drug Screen MD_Follow Up Level 4 Lab_Drug Screen MD_Follow Up Level 4 MD_Follow Up Level 4 Lab_Drug Screen MD_Follow Up Level 4 Lab_Drug Screen CP_Cancelled MD_Follow Up Level 4 Lab_Drug Screen Beh_Intervention MD_Follow Up Level 4 Lab_Drug Screen Beh_Intervention MD_Follow Up Level 4 Lab_Drug Screen Beh_Intervention MD_Follow Up Level 4 Lab_Drug Screen MD_Follow Up Level 4 Lab_Drug Screen Beh_Intervention MD_Follow Up Level 5 Lab_Drug Screen NP_Office Visit Level 3 MD_Follow Up Level 5 Beh_Intervention MD_Follow Up Level 4 Beh_Intervention Inj_Greater Occipital Nerve Blcok Inj_Tigemninal Nerve Block NP_Office Visit Level 4 NP_Office Visit Level 2 Advance Directives Directive Yes / No Effective Date File Name No Information Encounters Encounter Description Practice Location Reason(s) For Visit Diagnoses Date Provider [facility], [address] [place] [address], [place], [place], [id number], tel:[phone] [facility] No Information Satinder Dobbs. [address] [place] [address], [address] [place] [address], [place], [place], [id number], [place]. tel:[phone] MD_Follow Up Level 5 [facility], [address] [place] [address], [place], [place], [id number], tel:[phone] [facility] No Information Jose Ramon Tamayo. [address] [place] [address], [place], [place], [id number], . tel:[phone] [facility], [address] [place] [address], [place], [place], [id number], tel:[phone] [facility] Chronic migraine without aura, intractable, without status migrainosusSomatic Symptom Disorder Lumanny Daniel. [address] [place] [address], [id number], . tel:[phone] MD_Follow Up Level 4 [facility], [address] [place] [address], [place], [place], [id number], [place] tel:[phone] [facility] Chronic migraine without aura, intractable, without status migrainosus Jose Ramon Tamayo. [address] [place] [address], [id number], [place]. tel:[phone] MD_Follow Up Level 4 [facility], [address] [place] [address], [place], [place], [id number], tel:[phone] [facility] Chronic migraine without aura, intractable, without status migrainosus Jose Ramon Tamayo. [address] [place] [address], [id number], [place]. tel:[phone] MD_Follow Up Level 4 [facility], [address] [place] [address], [place], [place], [id number], tel:[phone] [facility] Chronic migraine without aura, intractable, without status migrainosusLong term (current) use of opiate analgesic Anne Aragon. [address] [place] [address], [id number], [place]. tel:[phone] MD_Follow Up Level 4 [facility], [address] [place] [address], [place], [place], [id number], [place] tel:[phone] [facility] No Information Elías June. [address] [place] [address], [id number], [place]. tel:[phone] [facility], [address] [place] [address], [place], [place], [id number], tel:[phone] [facility] No Information Jose Ramon Tamayo. [address] [place] [address], [id number], [place]. tel:[phone] [facility], [address] [place] [address], [place], [place], [id number], [place] tel:[phone] [facility] No Information Jose Ramon Tamayo. [address] [place] [address], [id number], [place]. tel:[phone] MD_Follow Up Level 4 [facility], [address] [place] [address], [place], [place], [id number], [place] tel:[phone] [facility] No Information Jose Ramon Tamayo. [address] [place] [address], [id number], [place]. tel:[phone] MD_Follow Up Level 4 [facility], [address] [place] [address], [place], [place], [id number], [place] tel:[phone] [facility] No Information Jose Ramon Tamayo. [address] [place] [address], [id number], [place]. tel:[phone] [facility], [address] [place] [address], [place], [place], [id number], [place] tel:[phone] [facility] Other, pain disorder related to psychological factorsDepression Berenice Daniel. [address] [place] [address], [id number], [place]. tel:[phone] MD_Follow Up Level 4 [facility], [address] [place] [address], [place], [place], [id number], [place] tel:[phone] [facility] No Information Jose Ramon Tamayo. [address] [place] [address], [id number], [place]. tel:[phone] MD_Follow Up Level 4 [facility], [address] [place] [address], [place], [place], [id number], [place] tel:[phone] [facility] No Information Jose Ramon Tamayo. [address] [place] [address], [id number], [place]. tel:[phone] MD_Follow Up Level 4 [facility], [address] [place] [address], [place], [place], [id number], [place] tel:[phone] [facility] Other syndromes affecting cervical region Keeley Benjaminchristianopalak. [address] [place] [address], [id number], [place]. tel:[phone] MD_Follow Up Level 4 [facility], [address] [place] [address], [place], [place], [id number], [place] tel:[phone] [facility] No Information Jose Ramon Tamayo. [address] [place] [address], [id number], [place]. tel:[phone] MD_Follow Up Level 4 [facility], [address] [place] [address], [place], [place], [id number], [place] tel:[phone] [facility] No Information Jose Ramon Tamayo. [address] [place] [address], [id number], [place]. tel:[phone] [facility], [address] [place] [address], [place], [place], [id number], [place] tel:[phone] [facility] No Information Jose Ramon Tamayo. [address] [place] [address], [id number], [place]. tel:[phone] _Follow Up Level 4 [facility], [address] [place] [address], [place], [place], [id number], [place] tel:[phone] [facility] No Information Jose Ramon Tamayo. [address] [place] [address], [id number], [place]. 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 [address] [place] [address], [id number], [place]. tel:[phone] MD_Follow Up Level 4 [facility], [address] [place] [address], [place], [place], [id number], [place] tel:[phone] [facility] No Information Albright Belkis. [address] [place] [address], [id number], [place]. tel:[phone] [facility], [address] [place] [address], [place], [place], [id number], [place] tel:[phone] [facility] No Information Berenice Daniel. [address] [place], [place], [id number], [place]. tel:[phone] MD_Follow Up Level 4 [facility], [address] [place] [address], [place], [place], [id number], [place] tel:[phone] [facility] No Information Jose Ramon Tamayo. [address] [place] [address], [id number], [place]. 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 [address] [place] [address], [id number], [place]. tel:[phone] MD_Follow Up Level 4 [facility], [address] [place] [address], [place], [place], [id number], [place] tel:[phone] [facility] No Information Albright Belkis. [address] [place] [address], [id number], [place]. tel:[phone] MD_Follow Up Level 4 [facility], [address] [place] [address], [place], [place], [id number], [place] tel:[phone] [facility] No Information Jose Ramon Belkis. [address] [place] [address], [id number], [place]. 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 [address] [place] [address], [id number], [place]. tel:[phone] [facility], [address] [place] [address], [place], [place], [id number], [place] tel:[phone] [facility] No Information Simónantoino Aragon. [address] [place] [address], [id number], [place]. tel:[phone] MD_Follow Up Level 5 [facility], [address] [place] [address], [place], [place], [id number], [place] tel:[phone] [facility] No Information Artemiokaren Corderona. [address] [place] [address], [id number], [place]. tel:[phone] NP_Office Visit Level 3 [facility], [address] [place] [address], [place], [place], [id number], [place] tel:[phone] [facility] Myalgia and myositis, unspecifiedCervical spondylosis without myelopathy Reynaldo Lynch. [address] [place] [address], [address] [place] [address], [place], [place], [id number], [place]. tel:[phone] MD_Follow Up Level 5 [facility], [address] [place] [address], [place], [place], [id number], [place] tel:[phone] [facility] Headache (chief complaint)M igraine (chief complaint)M uscle Spasm (chief complaint)N eckpain (chief complaint) CH MGR WO VAISHNAVI W NT WO STCervical spondylosis without myelopathyACQ TORSION DYSTONIA NECOther syndromes affecting cervical regionSpasm of muscle Antonia Galan. [address] [place] [address], [id number], . 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 [address] [place] [address], [id number], [place]. tel:[phone] MD_Follow Up Level 4 [facility], [address] [place] [address], [place], [place], [id number], [place] tel:[phone] [facility] Headache (chief complaint)M igraine (chief complaint)M uscle Spasm (chief complaint) Therapeutic Drug MonitoringCH MGR WO VAISHNAVI W NT WO STOther syndromes affecting cervical regionSpasm of muscle [facility] Angelia. [address] [place] [address], [id number], . tel:[phone] [facility], [address] [place] [address], [place], [place], [id number], tel:[phone] [facility] No Information Berenice Daniel. [address] [place] [address], [id number], . tel:[phone] [facility], [address] [place] [address], [place], [place], [id number], tel:[phone] [facility] Neuralgia, neuritis, and radiculitis, unspecifiedMyalgia and myositis, unspecified [facility] Angelia. [address] [place] [address], [id number], . tel:[phone] NP_Office Visit Level 4 [facility], [address] [place] [address], [place], [place], [address] [place] [address], tel:[phone] [facility] Headache (chief complaint)M igraine (chief complaint)M uscle Spasm (chief complaint) CH MGR WO VAISHNAVI W NT WO STOther syndromes affecting cervical regionSpasm of muscleACQ TORSION DYSTONIA NECCervical spondylosis without myelopathy [facility] Angelia. [address] [place] [address], [id number], . tel:[phone] NP_Office Visit Level 2 [facility], [address] [place] [address], [place], [place], [id number], tel:[phone] [facility] headache (chief complaint) Hypertension, UnspecifiedCH MGR WO VAISHNAVI W NT WO ST Corey Hernández. [address] [place] [address], [place], [place], [id number], . tel:[phone] Family History Family Member Type Diagnosis Age At Onset Family h/o Problem (finding) Heart Disease Family h/o Problem (finding) Diabetes Family h/o Problem (finding) High Blood Pressure Payers Payer name Insurance type Covered green party ID Authoriza tion(s) BCBS PPO BL [id number] Social History Type Description Quantity Date Captured Comments Alcohol Use Details Unknown Caffeine Use Details Unknown Tobacco Use Status No Information Smoking Status No Information Sex Male Chief Complaint And Reason For Visit No Information History Of Present Illness Encounter Date Complaint History Of Prese nt Illness Headache Migraine Muscle Spasm Neckpain Headache Migraine Muscle Spasm Headache Migraine Muscle Spasm headache Instructions Date Instruction Additional Infor mation Related to Other , pain disorder related to psychological factors Related to Other , pain disorder related to psychological factors Related to Other , pain disorder related to psychological factors Related to Other , pain disorder related to psychological factors Assessments Type Assessment Date No Information
--- NOTE | 2024-09-30 | ECG_ITS ---
Test Reason : nausea vomiting Blood Pressure : */* mmHG Vent. Rate : 81 BPM Atrial Rate : 81 BPM P-R Int : 140 ms QRS Dur : 82 ms QT Int : 386 ms P-R-T Axes : 60 -15 30 degrees QTcB Int : 448 ms Sinus rhythm with Premature atrial complexes Nonspecific T wave abnormality Abnormal ECG When compared with ECG of 21-Mar-2020 17:59, Premature atrial complexes are now Present Criteria for Septal infarct are no longer Present Nonspecific T wave abnormality now evident in Lateral leads Referred By: Generic ED Physician Electronically Signed By: Jeff English
--- NOTE | ~2024-09-30 | CT_ITS ---
EXAMINATION: CT CERVICAL SPINE WITHOUT CONTRAST CLINICAL INFORMATION: Trauma, neck pain. COMPARISON: 08/05/2020 , 03/21/2020 CT chest 03/21/2020. TECHNIQUE: Spiral CT imaging of the cervical spine performed in axial plane without contrast. Multiplanar reformatted images were constructed from the axial data set. This CT examination was performed using dose optimization techniques as appropriate, variously including the following: *Automated exposure control *Adjustment of mA and/or kV according to patient size (this includes techniques or standardized protocols for targeted exams where dose is matched to indication/reason for exam; i.e. extremities or head) *Use of iterative reconstruction technique FINDINGS: CORONAL ALIGNMENT: -Normal. SAGITTAL ALIGNMENT: -There is a reversal of the normal lordosis, centered at C4. -3 mm degenerative appearing anterolisthesis of C3 on C4, unchanged from 08/05/2020. C1-C2 AND CRANIOCERVICAL JUNCTION: -Intact and normally aligned. There are moderate degenerative changes at the atlantoaxial joint. VERTEBRAL BODIES AND FACETS: -There is no fracture, compression deformity, or suspicious bone lesion. -There is no evidence of traumatic subluxation. -There is normal facet alignment bilaterally. This CT 3 4 facets are fused bilaterally. -There are multilevel mild to moderate hypertrophic degenerative facet changes. DISCS: -Severe disc degeneration noted C3-4, C5-6 and C6-7. -Moderate degeneration C4-5, and C7-T1. CENTRAL CANAL: -No evidence of high-grade central canal narrowing or large disc herniation allowing for modality limitations. PREVERTEBRAL AND PARAVERTEBRAL SOFT TISSUES: -No prevertebral or paravertebral soft tissue swelling, edema, or abnormal fluid collection. -Stable 9 mm nodule in the right thyroid gland. Thyroid otherwise normal. LUNG APICES: -Mild granulomatous changes in the left apex. -There is an 8 mm nodule in the posterior left upper lobe, abutting the medial major fissure (series 18, image 68). This is unchanged from 03/21/2020 CT chest exam. This is benign. CT/CT cervical spine wo IV con IMPRESSION: 1. No CT evidence of acute cervical spine fracture or injury. 2. Stable moderate diffuse spondylosis. Electronically signed by: Delfino Blanco MD 10/01/2024 09:42 AM EDT
--- NOTE | ~2024-09-30 | CT_ITS ---
EXAMINATION: CT CHEST WITHOUT IV CONTRAST INDICATION: trauma COMPARISON: Comparison is made with the prior examination dated 03/21/2020. TECHNIQUE: Helical CT scan of the chest was performed without intravenous contrast. Coronal and sagittal reformatted images were generated and reviewed. This CT exam was performed with one or more of the following dose reduction techniques: automated exposure control, adjustment of the mA and/or kV according to patient size, use of iterative reconstruction technique. DLP: 285 mGy-cm CHEST: THYROID: The thyroid is unremarkable. LUNGS: There is mild elevation of the right hemidiaphragm with adjacent subsegmental atelectasis. There is a stable 9 mm left upper lobe nodule (series 23, image 44). The lungs are otherwise clear. MEDIASTINUM: There is no mediastinal lymphadenopathy. SOLE: Evaluation of the hilar regions is limited by lack of intravenous contrast material. CARDIOVASCULATURE: The heart is normal in size. There is no pericardial effusion. The thoracic aorta is normal in caliber. DEGREE OF CORONARY CALCIFICATION: severe PLEURA: There is no pleural effusion. No pneumothorax. MAIN AIRWAYS: The mainstem bronchi and proximal branches are patent. AXILLA: There is no axillary lymphadenopathy. BONES AND SOFT TISSUES: There is an acute mildly displaced fracture of the midshaft of the left clavicle. UPPER ABDOMEN: The visualized portions of the liver, spleen, and adrenals have an unremarkable unenhanced appearance. There are nonobstructing bilateral renal calculi. CT/CT chest wo IV con IMPRESSION: 1. Acute mildly displaced fracture of the midshaft of the left clavicle. 2. Stable 9 mm left upper lobe pulmonary nodule. 3. Mildly elevated right hemidiaphragm with adjacent subsegmental atelectasis. Electronically signed by: Onofre Barone MD 10/01/2024 10:29 AM EDT
--- NOTE | ~2024-09-30 | MR_ITS ---
CLINICAL HISTORY: abd pain pancreatic mass, include MRCP MRI abdomen with and without intravenous contrast, attention pancreas including MRCP:: Comparison: CT 10/01/2024. Findings: The liver is not enlarged. No significant fatty infiltration of the liver. The gallbladder is small and partially contracted. No gallstones. No intrahepatic biliary dilatation. The extrahepatic common bile duct diameter is 5.9 mm. The distal pancreatic duct in the head of the pancreas measures 4 mm in diameter and gradually tapers into the tail. There is diffuse fatty infiltration of the pancreas No solid pancreas masses. Oval-shaped 2 point 3 x 1.7 cm cyst is present at the junction between body and tail of the pancreas with thin barely perceptible wall and no septations. No ascites. Abdominal bowel loops in the upper abdomen are unremarkable. The spleen is normal in size. Abdominal aorta caliber is normal. No vascular abnormalities. No adenopathy. Kidneys are normal in size and configuration. No hydronephrosis. No MRI evidence of renal calculi. A 7 mm benign exophytic right renal cortical cyst is present. And 11 mm anterior right renal benign cortical cyst is present. A posterior upper pole 2.2 cm benign renal cortical cyst is present. Bone marrow cellularity is normal. Impression: Diffuse fatty infiltration of the pancreas. No solid pancreas masses. A pancreas cyst is present with benign MRI characteristics. The appearance, example: Image 21, series 9 is most consistent with a side branch intraductal papillary mucous neoplasm (IPMN).. Radiologic guidelines recommendation is follow-up MRI or CT in 6 months and biochemical testing for CA 19-9 if no prior pancreas imaging is available older than six-months for comparison. This document has been electronically signed by: Myles Dover MD on 10/02/2024 18:36:10
--- NOTE | ~2024-09-30 | CT_ITS ---
CLINICAL HISTORY: diverticu.? CT abdomen and pelvis with contrast Comparison: None provided Findings: There is minimal bibasilar atelectasis. There is mild elevation of the right hemidiaphragm. There are a few calcified splenic granulomas. The liver, gallbladder, and adrenal glands are unremarkable. There is a cystic lesion in the body of the pancreas measuring about 2.6 x 1.9 cm. Pancreas is otherwise unremarkable. There are few small bilateral nonobstructing renal stones measuring up to 4 mm in the left kidney. There are a few right renal cysts. There is wall thickening of the distal ileum with adjacent mesenteric edema/fat stranding consistent with ileitis. The appendix is normal. There is colonic diverticulosis. There is no acute diverticulitis. There is no free fluid or free air. The aorta is normal in diameter. There are no enlarged lymph nodes. The bladder is unremarkable. There are degenerative changes of the lumbar spine. There is mild lumbar dextroscoliosis. There is no acute fracture or suspicious lytic or sclerotic lesion. IMPRESSION: 1. Findings consistent with ileitis. 2. 2.6 cm cystic lesion in the body of the pancreas most likely a cystic pancreatic neoplasm such as an intraductal papillary mucinous neoplasm. Comparison with prior imaging if available or follow-up MRI with and without contrast is recommended. 3. Colonic diverticulosis. 4. Small bilateral nonobstructing renal stones. This document has been electronically signed by: Ollie Seth MD on 10/01/2024 03:15:05
--- NOTE | ~2024-09-30 | XR_ITS ---
CLINICAL HISTORY: trauma 2 views left clavicle Comparison: CR - XR SHOULDER LT MIN 2V - 10/01/24 02:21 EDT Findings: There is a left mid clavicular fracture with about 1 shaft width inferior displacement of the distal fracture fragment. There is a mildly displaced left 4th rib fracture posteriorly. Glenohumeral and acromioclavicular joint alignment is normal. Impression: 1. Displaced left mid clavicular fracture. 2. Mildly displaced left 4th rib fracture. This document has been electronically signed by: Ollie Seth MD on 10/01/2024 03:02:18
--- NOTE | ~2024-09-30 | XR_ITS ---
CLINICAL HISTORY: trauma 3 views left shoulder Comparison: CR - XR CLAVICLE LT - 10/01/24 02:28 EDT Findings: There is a left mid clavicular fracture with about 1 shaft width inferior displacement of the distal fracture fragment. There is a mildly displaced fracture of the left 4th rib posteriorly. Glenohumeral and acromioclavicular joint alignment and joint spaces are normal. Impression: 1. Displaced left mid clavicular fracture. 2. Mildly displaced left 4th rib fracture. This document has been electronically signed by: Ollie Seth MD on 10/01/2024 03:00:31
--- NOTE | ~2024-09-30 | CT_ITS ---
EXAMINATION: CT HEAD WITHOUT CONTRAST CLINICAL INFORMATION: Trauma. COMPARISON: 08/05/2020, 03/21/2020. TECHNIQUE: Contiguous axial imaging was performed from the skull base to vertex without intravenous administration of contrast. This CT examination was performed using dose optimization techniques as appropriate, variously including the following: *Automated exposure control *Adjustment of mA and/or kV according to patient size (this includes techniques or standardized protocols for targeted exams where dose is matched to indication/reason for exam; i.e. extremities or head) *Use of iterative reconstruction technique FINDINGS: There is no evidence of intracranial hemorrhage or extra-axial fluid collection. There is no mass effect, or edema. No CT evidence of acute territorial infarct. Ventricles are somewhat dilated out of proportion to sulcal and cisternal prominence, a stable finding. No hydrocephalus. No midline shift. Negative hyperdense MCA sign. Negative insular ribbon sign. Patchy periventricular and deep white matter hypoattenuation is consistent with mild to moderate small vessel ischemic changes. Normal pituitary. Mild atheromatous calcification of the bilateral carotid siphons and V4 segments vertebral arteries bilaterally. Globes and orbital contents image normally. There are bilateral lens replacements. No extracranial soft tissue abnormalities. The paranasal sinuses, mastoid air cells, and tympanic cavities are normally aerated. No suspicious bony abnormalities. There are no acute fractures evident. Moderate degenerative changes in the bilateral TM joints. CT/CT head/brain wo IV con IMPRESSION: No acute intracranial abnormality. No fracture evident. Electronically signed by: Delfino Blanco MD 10/01/2024 09:50 AM EDT
[2024-09-30 23:28] VITALS: BP 144/82; BP 145/60; PULSE 57; PULSE 80; RESP 17; TEMP 37.6; O2SAT 95; O2SAT 99; BMI 25.2
--- NOTE | 2024-09-30 23:52 | PC.NURSE ---
pt biba, n/v/d x4 days, mainly diarrhea, mild abdominal pain 6/10, unable to tolerate anything PO x4 days. denies blood in stool and emesis. denies chest px and SOB. V/S WNL IV placed in R AC, labs obtained
[2024-09-30 23:54] VITALS: BP 145/60; PULSE 57; RESP 17; TEMP 37.6; O2SAT 99
[2024-09-30 23:54] LABS: Glucose, Whole Blood 119 mg/dL (60-115)
[2024-09-30 23:55] LABS: Baso%MD 0.1 %; Eos%MD 0.1 %; Hematocrit 45.7 % (42.0-52.0); Hemoglobin 15.3 g/dl (14.0-18.0); IG%MD 0.4 %; Lymph%MD 5.8 %; Mean Corpuscular HGB Conc 33.5 g/dl (31.0-36.0); Mean Corpuscular Hemoglobin 29.1 pg (27.0-33.0); Mean Corpuscular Volume 86.9 fL (80.0-98.0); Mono%MD 4.9 %; NRBC Abs Auto 0.000 X10*3/uL (0.0-0.012); NRBC Pct Auto 0.0 /100WBC (0.0-0.2); Neut%MD 88.7 %; Platelet Count 435 X10*3/uL (160-400); Red Blood Count 5.26 X10*6/uL (4.60-5.80); White Blood Count 15.6 X10*3/uL (4.8-10.8)
[2024-10-01] VITALS (9 sets, daily range): BP systolic 111–188; BP diastolic 51–81; PULSE 59–94; RESP 16–20; TEMP 36.3–37.7; O2SAT 94–99; BMI 26.7
[2024-10-01 00:09] LABS: Alanine Aminotransferase 15 U/L (0-40); Albumin Level 5.0 g/dL (3.5-5.0); Alkaline Phosphatase 68 U/L (39-117); Anion Gap 16 (12-20); Aspartate Amino Transferase 31 U/L (5-37); Blood Urea Nitrogen 17 mg/dL (9-16); Calcium 10.0 mg/dL (8.4-10.2); Carbon Dioxide 27 mmol/L (22-29); Chloride 104 mmol/L (96-108); Creatinine Clr Calc Pharmacy 62.6; Estimated Glomerular Filt Rate > 60; Lipase 21 U/L (8-78); Magnesium 2.3 mg/dL (1.6-2.6); Potassium 3.9 mmol/L (3.3-5.1); Sodium 143 mmol/L (135-145); Total Protein 7.8 g/dL (6.5-8.0)
[2024-10-01 00:17] LABS: Troponin-I High Sensitivity 10.0 ng/L (<3.5-35.0)
[2024-10-01 00:32] LABS: Resp Syncy Virus RNA Qual PCR NEGATIVE (Negative); SARS COV2 PCR INHOUSE NEGATIVE (Negative)
[2024-10-01 00:38] LABS: Band Neutrophils Percent 0 % (3-5); Lymphocytes Absolute Manual 0.5 X10*3/uL (1.2-4.9); Lymphocytes Percent Manual 3 % (20-40); Monocytes Absolute Manual 0.6 X10*3/uL (0.1-1.2); Monocytes Percent Manual 4 % (2-11); Neutrophils Absolute Manual 14.5 X10*3/uL (2.0-8.3); Neutrophils Percent Manual 93 % (45-73); RBC Morphology NORMAL
[2024-10-01 00:39] LABS: Microcytosis 1+ (5-14) /OIF; Ovalocytes 1+ (5-14) /OIF; Toxic Vacuolation PRESENT
--- OUTSIDE RECORDS SUMMARY | 2024-10-01 00:45 | XMS_ITS | Patient Health Record ---
Author Organization [facility] Fernie Andrews Address [address] [place] [address] Care Team Providers Care Farm Agent Name Role Phone Shaylee Shin Primary Care Provider Clint Rivas Unavailable [phone] Allergies Allergen (clinical drug ingredient) Drug/Non Drug Allergy documented on EMR Reaction Allergy Type Onset Date Status povidone-iodine Betadine Unknown Drug Allergy A ctive fentanyl Fentanyl hallucinations Drug Allergy Ac tive Shrimp Flavor intestinal distress Drug Allergy Active Cat dander Cat Dander Unknown Allergy Active Dog dander Dog Dander Unknown Allergy Active Reason For Referral No Information Medications Medication SIG (Take, Route, Frequency, Duration) Notes Start Date End Date Status Karlie 50 MG 1 capsule Orally Once a day Not-Taking fentaNYL Not-Taking Wellbutrin Active Urea 40 % 1 application to aff ected area on feet Externally Twice a day; Duration: 30 days 01/28/2017 Active traZODone HCl 100 MG 1 tablet at bedtime Orally Once a day; Duration: 30 day(s) Active Morphine Active Immunizations Vaccine Route Administration Date Status Comme nts COVID-19 Pfizer BioNTech Vaccine Unknown 06/12/2020 Administered 1st 05/01/2020 Influenza Unknown 02/03/2020 Administered Social History Tobacco Use: Social History Observation Description Date Details (start date - stop date) Never Smoker NA - NA Tobacco Use/Smoking Question Answer Notes Are you a: nonsmoker Additional Findings: Tobacco Non-User Current no n-smoker Alcohol Screen Question Answer Notes Did you have a drink containing alcohol in the p ast year? No Points 0 Interpretation Negative Tobacco use other than smoking: Question Answer Notes Are you an other tobacco user? No Problems Problem Type SNOMED Code ICD Code Onset Dates Problem Status W/U Status Risk Notes Problem Tinea unguium (465050417) Tinea unguium (B35.1) Active confirmed Plan Of Treatment Pending Test Test Name Order Date 21610-SKRIQRY NAIL, 6 OR MORE 09/05/2012 [id number] NAIL, 6 OR MORE 01/05/2013 [id number] NAIL, 6 OR MORE 04/20/2013 12610-SQGBNYQ NAIL, 6 OR MORE 06/29/2013 06180-RSLMXXR NAIL, 6 OR MORE 10/02/2013 33138-CPQQHWO NAIL, 6 OR MORE 12/28/2013 16381-CHNNELB NAIL, 6 OR MORE 04/10/2014 93928-GQUUGHJ NAIL, 6 OR MORE 07/09/2014 38089-RTIDFHU NAIL, 6 OR MORE 10/22/2014 88758-CHQCJQV NAIL, 6 OR MORE 01/21/2015 01193-LXBQVRI NAIL, 6 OR MORE 04/25/2015 97263-LDVULSW NAIL, 6 OR MORE 07/04/2015 37320-XUYFILE NAIL, 6 OR MORE 09/05/2015 34286-IELPHFF NAIL, 6 OR MORE 11/07/2015 44564-WIHLJGY NAIL, 6 OR MORE 02/17/2016 37389-MMNETHF NAIL, 6 OR MORE 04/27/2016 00027-XPVDDVM NAIL, 6 OR MORE 07/06/2016 70402-DTLYKZK NAIL, 6 OR MORE 09/07/2016 93663-LFXFAXN NAIL, 6 OR MORE 11/23/2016 52257-FFQFSUJ NAIL, 6 OR MORE 01/28/2017 72486-TZRUMHT NAIL, 6 OR MORE 04/01/2017 71861-SBDAPMV NAIL, 6 OR MORE 07/01/2017 07073-GNBPQSG NAIL, 6 OR MORE 09/06/2017 99580-ABLYWMW NAIL, 6 OR MORE 11/11/2017 82196-PTGVLQJ NAIL, 6 OR MORE 02/03/2018 08354-QPRPSPS NAIL, 6 OR MORE 04/07/2018 25156-FNXAGNV NAIL, 6 OR MORE 07/07/2018 30557-MWRLXQX NAIL, 6 OR MORE 09/15/2018 35363-WDOBHYZ NAIL, 6 OR MORE 02/09/2019 42004-UYFMOCA NAIL, 6 OR MORE 04/20/2019 50558-FLFPOMC NAIL, 6 OR MORE 06/26/2019 21145-NQCFSZO NAIL, 6 OR MORE 09/04/2019 21252-RRYUWES NAIL, 6 OR MORE 11/13/2019 41621-HPBHOLK NAIL, 6 OR MORE 01/12/2011 74785-WZXNCLZ NAIL, 6 OR MORE 04/06/2011 67331-JZAEKBP NAIL, 6 OR MORE 07/09/2011 59423-SIZXOLU NAIL, 6 OR MORE 09/23/2011 54410-MJGNVAF NAIL, 6 OR MORE 12/24/2011 72335-HREPUGH NAIL, 6 OR MORE 03/10/2012 75337-SMFZVFU NAIL, 6 OR MORE 02/29/2020 36119-JOXIFHH NAIL, 6 OR MORE 05/09/2020 07618-TNDACNX NAIL, 6 OR MORE 09/23/2020 15431-IJNBIBA NAIL, 6 OR MORE 12/23/2020 17993-GPPNTQV NAIL, 6 OR MORE 09/25/2021 13148-YCPIASG NAIL, 6 OR MORE 06/07/2012 89406-Iepvtrgp Plate 06/07/2012 41641-Lmobqpea Plate 11/13/2019 73494- Ganglion Cyst Injection/Aspiratio n 03/10/2012 Insurance Providers Payer Name Payer Address Payer Phone Subscriber Number Group Number Insured Name Patient Relationship to Insured Coverage Start Date Coverage End Date [facility] 63 Medicare Preferred [address] [place] [address] [id number] Pj Greenberg Self - patient is the insured Medical (General) History Surgical History Surgery Date(Month/Year) shoulder surgery 2012 oral surgery left hand carpal tunnel surgery 08/20/19 14 Hospitalization History Reason Date(Month/Year) Patient admitted to [facility] ter for room tilting. 10/2013 [facility], 2 days, reaction to Fentanyl, exper iencing hallucinations 02/2015 [facility] for kidney stones 9 [facility]- Fall 04/2020 [facility] -fell off latter fractur ed left elbow 05/2020
--- OUTSIDE RECORDS SUMMARY | 2024-10-01 00:45 | XMS_ITS | Data Portability ---
Author Organization [place] - [facility], [facility] - INPATIENT Address [address] [place] [address] Assessment Encounter Date Assessment Date Assessment LastModified by Organization Details LastModified Time 11/29/2019 11/29/2019 DATA: Review of that right shoulder MRI shows a large tear of the rotator cuff with osteoarthritis and a high riding humeral head. IMPRESSION: Large cuff tear and OA. PLAN: We discussed options for pain. Given that I believe that this tear is not reparable, if he was to entertain surgery, it would be a reverse shoulder replacement. However, I don t believe this is warranted at this time. We talked about his symptoms. He does have some pain, so we did a cortisone shot. We discussed post injection expectations and instructions. I will see him back as needed. TREATMENT GIVEN: I confirmed that the patient does not have a history of prior adverse reactions, active infections, or relevant allergies. There was no erythema or warmth, and the skin was clear. Patient did well after the last injection, with no untoward pain or swelling. After discussion of the risks including, but not limited to infection, localized soreness and swelling, reaction to medications, the patient consented to proceeding with the regimen. Under sterile conditions with the use of alcohol and Betadine prep on the right shoulder and ethyl chloride spray on the skin, I applied sterile ultrasound gel and utilized the [employer] to ensure accurate needle placement. Topical anesthesia was achieved by use of ethyl chloride spray, followed by the placement of 2 cc of Depo-Medrol, and 3 cc of 2% lidocaine into the glenohumeral joint without incident. The needle was held in plane with the curvilinear ultrasound probe. Ultrasound images were scanned into the patient's chart. The injection was completed without complication and a Band-Aid was applied. The patient tolerated the procedure well and was instructed to avoid strenuous activity for the next 24-48 hours and use ice, NSAIDs, or Tylenol for pain as needed. The patient completed the COVID-19 screening handout and was deemed healthy to move forward with this appointment. This visit is a heak-jk-igyz visit during the COVID- pandemic. Based on my clinical judgment, I felt that this visit could not be provided safely and appropriately via TeleHealth. Based on available information prior to presentation, the patient had a high risk of significant worsening and potential functional impairment affecting ADLs if the visit was not completed today. The patient was seen in the office after following PPE use, Workforce Safety, Patient Safety and Infection Control protocols for all services provided today in accordance with DP and CDC Guidelines. Not available 12/04/2019 14:15:46 08/14/2020 08/14/2020 DATA: X-rays of the shoulder showed no acute fracture or dislocation. IMPRESSION: As far as the shoulder is concerned, I think he injured this during the fall. PLAN: We will immobilize him for a few days in the sling. He will remain in the splint until he sees Dr. Chapa on Tuesday. They will determine the treatment plan for the elbow. If after Dr. Chapa is doing treating him for the elbow and the shoulder is still an issue, he can always return to the office and we can consider an MRI versus an injection and physical therapy. The patient did complete the COVID-19 screening handout and was deemed healthy to move forward with this appointment. This visit is a advb-ke-zwqe visit during the COVID-19 pandemic Public Health Emergency. Based on my clinical judgment, I felt that this visit could not be provided safely and appropriately via TeleHealth. Based on available information prior to presentation, the patient had a high risk of significant worsening and potential functional impairment affecting ADLs if the visit was not completed today. The patient was seen in the office after following PPE use, Workforce Safety, Patient Safety and Infection Control protocols for all services provided today in accordance with DP and CDC guidelines. There was additional practice expense incurred due to the Public Health Emergency. This additional expense includes but is not limited to: Additional clinical staff and medical medical technical writer time for pre-screening Time spent reviewing COVID social distancing guidelines, precautions, instructions, and signage Patient symptom checking upon arrival Application, removal, and purchasing of additional PPE Additional cleaning of exam room, equipment, supplies, as well as cleaning supplies for that purpose. Not available 08/15/2020 00:40:03 Plan of Treatment Reminders Order Date Submit Date Provider Last Modified By Organization Details Last Modified Time Details Appointments None recorded. Lab None recorded. Referral None recorded. Procedures suture removal (PROC) 2020 021 [email or web address] Not available 07:35:56 Surgeries None recorded. Imaging None recorded. Medication Orders Depo-Medrol 40 mg/mL suspension for injection 2019 020 [email or web address] Not available 14:09:13 Patient TargetsNo targets recorded. Patient Instructions Encounter Date Encounter Id Patient Instructions Last Modified By Organization Details Last Modified Time 08/18/2020 [id number] The findings, diagnosis, and options are discussed with the patient. The potential surgical procedure options were also outlined. Based on symptoms and findings, the decision was made to plan for future ORIF. We reviewed possible good or satifactory outcomes with closed mangement of such fracture in older patients. He feels this would not allow him best chance for good function. he will use compressive wrap now and sling. I have discussed this may be trial for such nonop management. The risks and benefits are fully outlined including (but not limited to): infection, persistent symptoms, limited bone healing, instability, heterotopic bone, complications of hardware or implant and neurovascular or tendon injury. All questions are answered. Pre-testing to be arranged. Follow up will be at the time of surgery in a week should he wish to proceed. He will discuss this further with his son. The patient will call if problems or questions. Not available 08/20/2020 14:36:03 09/01/2020 [id number] The findings, diagnosis, and options are discussed including potential treatments. The decision was made to cancel his surgery that was scheduled for Tuesday based on his improvement in symptoms. He has continued healing on xrays and his motion, pain, and triceps function are all progressing. We discussed that surgery is unlikely to make him significantly better and that we believe he would do just as well with nonoperative treatment. He was in agreement. We attempted to contact his son to discuss this again in detail. He was unable to be contacted. Forehead sutures and jose that were placed in the ED at the time of his initial injury were removed and steri-strips applied. All questions are answered. Follow up will be arranged in 4 weeks with new xrays of the elbow. He is in agreement with this plan. Patient will call if problems or questions. The patient is seen and examined with Dr. Villegas. Agree with above findings and plan. HLK Not available 09/01/2020 21:35:18 10/06/2020 [id number] The findings, diagnosis, and options are discussed including potential treatments. He is doing quite well and is pleased with his progress. He can expect continued improvement in his symptoms for some time still. He will monitor for any issues and will contact us with any concerns. Follow up as needed, The patient is seen and examined with Dr. Villegas. Agree with above findings and plan. K Not available 10/08/2020 20:05:10 Reason for Referral None Reported. Results Created Date Observation Date Name Description Value Unit Range Abnormal Flag Note LastModifiedBy Organization Detail LastModifiedTime 11/09/19 20 10/31/2019 MRI, ajit tim, w/o contr ast No observ ation record ed. [email or web address] [facility] [place] [address] [address], [place], [address], 11/13/2019 14:55:56 08/15/19 21 08/14/2020 xr elbow left 3 views minim um Fin al Report EXAM#: [id number] PROCED URE: DXR 0024 XR ELBOW LEFT 3 VIEWS MINIMU M Aug 14 2020 1:14PM CLINIC AL INDICA TION: PAIN IN LEFT ELBOW 5 views of the left elbow are obtain ed, cherry moraes commin uted fractu re involv ing the proxim al ulna extend ing to the olecra non proces s with intra- articu lar extens ion. Radial head appear s to be intact . There is joint effusi on. NUMBER OF IMAGES : 5 Report ed by : LLUVIA NARVAEZ M.D. On: Aug 14 2020 1:57P Signed by: LLUVIA AVALOS M.D. On: Aug 14 2020 1:57P [email or web address] [facility] [address] [place], [address], 08/15/2020 09:41:53 08/15/19 21 08/14/2020 xr shoul tim left 3 views Fin al Report EXAM#: [id number] PROCED URE: DXR 0139 XR SHOULD ER LEFT 3 VIEWS Aug 14 2020 2:33PM CLINIC AL INDICA TION: PAIN IN LEFT SHOULD ER 3 views of the left should er are obtain ed. No prior exams. There is mild narrow ing of the inferi or glenoh umeral joint with minor varus margin al spurri ng. Modera te narrow ing of the left AC joint is seen. Alignm ent is anatom ic. No fractu re seen. NUMBER OF IMAGES : 4 Report ed by : LLUVIA NARVAEZ M.D. On: Aug 14 2020 2:45P Signed by: LLUVIA AVALOS M.D. On: Aug 14 2020 2:45P [email or web address] [facility] [address] [facility], [place], [address], 08/14/2020 14:54:37 08/15/19 21 08/14/2020 XR, elbow No observ ation record ed. [email or web address] [facility] ([facility]) [address] [place], [address], 08/15/2020 08:31:49 09/03/19 21 09/01/2020 xr elbow left 3 views minim um Fin al Report EXAM#: [id number] PROCED URE: DXR 0024 XR ELBOW LEFT 3 VIEWS MINIMU M Sep 01 2020 4:19PM CLINIC AL INDICA TION: Pain in left elbow Compar deja: 021 FINDIN GS: Commin uted olecra non fractu re is again identi fied with increa sed wideni ng of fractu re diasta ses. Elbow joint is otherw ise congru ent with a joint effusi on. NUMBER OF IMAGES : 4 Report ed by : CANDY BROCK M.D. On: Sep 02 2020 8:28A Signed by: CANDY BROCK M.D. On: Sep 02 2020 8:32A [address] [facility] [address] [facility], [place], [address], 09/02/2020 08:38:06 09/03/19 21 09/01/2020 XR, elbow No observ ation record ed. [address] ([facility]) [address] [facility], [place], [address], 09/02/2020 14:43:05 10/03/19 21 10/01/2020 US, duple x, carot id arter y No observ ation record ed. [email or web address] [facility] [place] [address] [address], [place], [address], 10/09/2020 12:41:38 10/07/19 21 10/06/2020 xr elbow left 3 views minim um Fin al Report EXAM#: [id number] PROCED URE: DXR 0024 XR ELBOW LEFT 3 VIEWS MINIMU M Oct 06 2020 2:34PM CLINIC AL INDICA TION: left elbow [pain Compar deja: 6/7/20 21 and 5/2 021 FINDIN GS: Olecra non fractu re is unchan ged in alignm ent as compar ed to last month with interv al develo pment of sclero sis and callus at the fractu re site with the fractu re lines now less distin ct, sugges ting interv al healin g. No other fractu re detect ed. NUMBER OF IMAGES : 5 Report ed by : CANDY BROCK M.D. On: Oct 06 2020 2:39P Signed by: CANDY BROCK M.D. On: Oct 06 2020 2:40P [address] [facility] [address] [facility], [place], [address], 10/06/2020 15:23:29 10/07/19 21 10/06/2020 XR, elbow , 3 or more view No observ ation record ed. [email or web address] [facility] [address] [facility], [place], [address], 10/07/2020 13:48:29 Result Notes None recorded. Problems Name Problem SNOMED Code Status Onset Date Resolution Date Notes Provider Name and Address Organization Details Recorded Time Disorder of rotator cuff 633934242 Active Not Available [facility] 3 03:02:06 Sprain of shoulder rotator cuff 553380800105 Active Montserrat ramon [facility] 4 15:48:44 Problem Notes None recorded. Procedures Surgical History Date Name Laterality Status Provider Name and Address Organization Details Recorded Time 4 ORTHOPAEDIC SURGERY (SURG) completed LOLLY FIGUEROA [address] [place] [address], [id number], [facility] 07/23/2013 15:22:05 3 Orthopaedic Surgery completed Lety Villanueva [facility] 01/08/2013 12:44:44 Imaging Results None recorded. Procedure Notes None recorded. Medical Equipment None Reported. Allergies No known drug allergies Medications Name Sig Start Date Stop Date Status Note LastModified by Organization Details LastModified Time Depo-Medrol 40 mg/mL suspension for injection Take 2 mL by injection route. 08/14 completed Not Available Not Available Not Available trazodone 50 mg tablet active Not Available Not Available Not Available ondansetron HCl 4 mg tablet TAKE 1 TABLET BY MOUTH EVERY 8 HOURS NEEDED FOR NAUSEA 08/14 completed Not Available Not Available Not Available Medrol (Aime) 4 mg tablets in a dose pack 1 pack use as directed 04/19 completed Not Available Not Available Not Available methylpheni date 5 mg tablet 08/14 completed Not Available Not Available Not Available alprazolam 0.5 mg tablet active Not Available Not Available Not Available trazodone 100 mg tablet active Not Available Not Available Not Available Kenalog 10 mg/mL suspension for injection Take 2 mL by injection route. 08/14 completed Not Available Not Available Not Available omeprazole 20 mg capsule,del ayed release active Not Available Not Available Not Available methylpheni date ER 18 mg tablet,exte nded release 24 hr 08/14 completed Not Available Not Available Not Available bupropion HCl XL 300 mg 24 hr tablet, extended release TAKE TWO TABLETS BY MOUTH EVERY DAY active Not Available Not Available No t Available morphine 04/19 completed Not Available Not Available Not Available Singulair active Not Available Not Kelli ilable Not Available Concerta 08/14 completed Not Available Not Available Not Available bupropion HCl (bulk) 04/19 completed Not Available Not Available Not Available morphine ER 50 mg capsule,ext ended release pellets TAKE 1 CAPSULE BY MOUTH TWICE A DAY active Not Available Not Available No t Available GaviLyte-G 236 gram-22.74 gram-6.74 gram-5.86 gram oral solution USE DIRECTED PER PACKAGE LABELING 04/19 completed Not Available Not Available Not Available Fluzone High-Dose Quad (PF) 240 mcg/0.7 mL IM syringe TO BE ADMINISTE RED BY PHARMACIS T FOR IMMUNIZAT ION 08/14 completed Not Available Not Available Not Available Vitals Date Recorded Body height Body mass index (BMI) Body weight Provider Name and Address Organization Details Last Updated DateTime 08/14/2020 170.18 cm 22.7 kg/m2 34087.89 g Shannan Johnson [facility] 08/14/2020 14:08:47 Date Recorded Body height Provider Name an d Address Organization Details Last Updated DateTime 08/18/2020 170.18 cm Kiana Daniel [facility] 08/18/2020 14:11:22 Date Recorded Body height Body mass index (BMI) Body weight Provider Name and Address Organization Details Last Updated DateTime 09/01/2020 170.18 cm 22.7 kg/m2 13394.89 g Marion Barclay [facility] 09/01/2020 17:04:38 Date Recorded Body height Body mass index (BMI) Body weight Provider Name and Address Organization Details Last Updated DateTime 10/06/2020 170.18 cm 22.7 kg/m2 33403.89 g Kiana Daniel [facility] 10/06/2020 14:51:21 Date Recorded Body height Body mass index (BMI) Body weight Provider Name and Address Organization Details Last Updated DateTime 11/29/2019 170.18 cm 22.7 kg/m2 70859.89 g Shameka Parkinson [facility] 11/29/2019 12:04:25 Social History Question Answer Notes LastModified by Tangled Details LastModified Time Tobacco Smoking Status Never Smoker Heydi ramon [facility] 11/30/2012 12:51:00 Auto Related Injury? No Information not available 11/30/2012 Have You Had Cortisone? Yes R Shoulder, X2 Cervical Spine Information not available 11/30/2012 How Much Tobacco Do You Smoke? No [email or web address] Information not available 11/29/2019 What Types Of Sporting Activities Do You Participate In? Elliptical Information not available 11/30/2012 Work Related Injury? No Information not available 11/30/2012 Sex: Unknown Functional Status Question Answer Note LastModified by Tangled Details LastModified Time What is your level of alcohol consumption? None [email or web address] Information not available 11/29/2019 Do you or have you ever used smokeless tobacco? Never used smokeless tobacco Information not available 11/29/2019 What is your occupation? Retired [email or web address] Information not available 11/29/2019 Do you or have you ever used e-cigarettes or vape? Never used electronic cigarettes [email or web address] Information not available 11/29/2019 What is your exercise level? Moderate Information not available 11/30/2012 Mental Status None recorded. Family History Nothing Reported. Medical History Condition Response HIV or AIDS N High Blood Pressure N Irregular Heartbeat N Any Other Significant Medical Issues N Weight Gain / Loss N Hearing Loss N Angina, Heart Failure or Attack N Night Sweats N Seizures / Epilepsy N Osteoarthritis / Rheumatoid arthritis / Other N Cancer Y Stroke N Ulcer / Stomach Bleeding / Indigestion N Visual Loss or Glaucoma N Blood Clots / Phlebitis N Heart Problems N Depression or Anxiety N Emphysema / Chronic Bronchitis N Reaction to General/Local Anesthesia N Hepatitis / Jaundice N Kidney / Bladder Infections Y Diabetes N Bleeding Disorder N Chemical Dependency / Alcoholism N Psoriasis / Skin Rash Y Thyroid Disorder N Heart Disease N Asthma / Shortness of Breath / Sleep Loss Prevention Research Engineer ea (please specify) N Pulmonary Embolism N Immunizations Vaccine Type Date Status Note Provider Nam e and Address Organization Details Recorded Time SARS-COV-2 (COVID-19) vaccine, UNSPECIFIED 05/01/2020 completed Marion ramon [facility] 09/01/2020 17:05:25 SARS-COV-2 (COVID-19) vaccine, UNSPECIFIED 06/12/2020 completed Marion ramon [facility] 09/01/2020 17:05:38 Past Encounters Encounter ID Performer Location Encounter Start Date Encounter Closed Date Diagnosis/Indication Diagnosis SNOMED-CT Code Diagnosis ICD10 Code Diagnosis Note [id number] LOLLY FIGUEROA [facility] Office [address] [place] [address] [id number] 11/30/2012 12:20:12 11/30/2012 13:57:04 [id number] LOLLY FIGUEROA [facility] Office [address] [place] [address] [id number] 01/08/2013 12:35:25 01/08/2013 13:29:03 Sprain of shoulder rotator cuff 9759289691 04 [id number] NIGEL FRIEDMAN MD [facility] Office [address] [place] [address] [id number] 02/08/2013 14:09:07 02/08/2013 14:39:36 Sprain of shoulder rotator cuff 0025594223 04 [id number] NIGEL FRIEDMAN MD [facility] [address] [place] [address] [id number] 04/19/2013 14:11:22 04/19/2013 16:28:29 Sprain of shoulder rotator cuff 7000035713 04 [id number] FABIANA RODRIGUEZ MD [facility] [address] [place] [address] [id number] 04/19/2019 11:06:46 04/19/2019 12:59:52 Bilateral arthritis of wrist 4780102474 590386 M13.831 M13.832 Acquired t manager room finger of right middle finger 1401692071 13073 M65.331 [id number] LOLLY FIGUEROA [facility] [address] [place] [address] [id number] 11/29/2019 11:47:36 11/29/2019 20:53:19 Localized, primary osteoarthritis of the shoulder region 187848091 M19.011 Pain of sh oulder region 54461561 M25.511 Full thick ness rotator cuff tear 588024570 M75.[id number] [facility] am Office [address] [place] [address] 08/14/2020 13:52:02 08/18/2020 08:40:13 Pain of shoulder region 63433977 M25.512 [id number] CRISTÓBAL CHAPA MD [facility] am Office [address] [place] [address] 08/18/2020 13:56:34 08/18/2020 15:06:11 Fracture of olecranon 532139659 S52.022A intra articular fracture [id number] CRISTÓBAL CHAPA MD [facility] am Office [address] [place] [address] 09/01/2020 16:27:30 09/01/2020 22:57:28 Fracture of olecranon 585364163 S52.022A intra articular fracture Scalp laceration 5813661 08 S01.01XD [id number] CRISTÓBAL CHAPA MD [facility] am Office [address] [place] [address] 10/06/2020 14:06:33 10/06/2020 15:25:12 Fracture of olecranon 147452128 S52.022A intra articular fracture Health Concerns Section Related Observation LastModified by Organization Detai ls LastModified Time None Recorded Concern Status LastModified by Organization Details LastModified Time None Recorded Advance Directives Directive None Recorded Payers Insurance Date Sequence Insurance Name Policy Number Policy Celeste Covered Member ID Celeste Member ID Guarantor Name 09/01/2020 1 [place] [employer] Pj Greenberg [id number] Pj Greenberg 09/01/2020 2 [place] Pj Greenberg [id number] Pj Greenberg 09/01/2020 2 [place] Pj Greenberg [id number] Pj Greenberg 09/01/2020 2 [place] Pj Greenberg [id number] Pj Greenberg 09/01/2020 2 [place] Pj Greenberg [id number] Pj Greenberg 09/01/2020 1 [place] [facility] - PLAN 2 (POS) [id number] Pj Greenberg [id number] Pj Greenberg 10/06/2020 1 [place]MEDICARE [place]PL[place] PPO) [id number] Pj Greenberg [id number] Pj Greenberg 09/01/2020 1 [place] [id number] Pj Greenberg [id number] Pj Greenberg 09/01/2020 2 [place] Pj Greenberg [id number] Pj Greenberg Notes Date Note Type Note Provider Name and Address Organization Details Recorded Time 11/29/2019 text/html HX: 73-year-old who comes in today for his right shoulder. In December 2012, we did a partial cuff repair where we covered 50% to 60% of the humeral head. However more recently, he fell on that right shoulder. He has had 2 or 3 falls in the last 6 months, the most recent one was a month ago. He said he doesn t have much pain. He had an MRI done because he was afraid that if they waited too long that something would be missed. PAST MEDICAL HISTORY: Reviewed and signed in the chart. LOLLY FIGUEROA [address] [place] [address], [place], [address], [facility] 12/04/2019 14:59:05 08/14/2020 text/html HISTORY: Pj is a very pleasant 74-year-old male here today. I am seeing him for left shoulder pain. He had a fall on 08/01/2019 and sustained an elbow fracture. His main purpose for today s visit was to see Dr. Chapa for the elbow fracture. Unfortunately, he was extremely late for his appointment and Dr. Chapa had a surgical case scheduled. He is returning on Tuesday to be evaluated by Dr. Chapa for his elbow. He also mentioned he had shoulder pain so I am seeing him strictly for that today. He said the shoulder has been bothering him. He still has good range of motion and the pain may be slightly improving. He wanted to get an x-ray to make sure he did not break anything. LOLLY PICKERING [address] [place] [address], [place], [phone], [facility] 08/18/2020 09:20:44 08/18/2020 text/html The patient is seen today for evaluation of a left elbow injury DOI 07/31/2020 . Reported onset following a fall down stairs. He suffered contusions, a head laceration and a left elbow injury. He had head laceration repair at ED and he was splinted for the elbow fracture. He has [employer] for the shoulder and is referred for his elbow fracture. Current associated signs and symptoms include: pain, stiffness, difficulty with software engineering manager and no paresthesias. He has been in a posterior elbow splint. No prior history of elbow trauma is noted. Consultation is requested. His son is on the phone during today's encounter CRISTÓBAL CHAPA MD [address] [place] [address], [phone], [facility] 08/20/2020 14:36:13 09/01/2020 text/html The patient is seen today for re evaluation of his left olecranon fracture. At his last visit he was doing well in terms of motion and pain at the elbow. He has continued to have some pain but reports it has been better recently. He has been wearing the compressive sleeve from his last visit. He is feeling that his elbow is healing well. CRISTÓBAL CHAPA MD [address] [place] [address], [phone], [facility] 09/01/2020 21:35:25 10/06/2020 text/html The patient is seen today for re evaluation of his left olecranon fracture. At his last visit he was doing well in terms of motion and pain at the elbow. He has continued to have mild pain but reports it has been better recently. He is feeling that his elbow is healing well. CRISTÓBAL CHAPA MD [address] [place] [address], [phone], [facility] 10/08/2020 20:05:13
--- OUTSIDE RECORDS SUMMARY | 2024-10-01 00:45 | XMS_ITS | Patient Health Record ---
Author Organization [facility] Address [address] [place] [address] Care Team Providers Care Direct Marketing Representative Name Role Phone Ghulam Jon Primary Care Provider Reason For Referral No Information Plan Of Treatment No Information Insurance Providers Payer Name Payer Address Payer Phone Subscriber Number Group Number Insured Name Patient Relationship to Insured Coverage Start Date Coverage End Date BCBS PPO [address] [place], [place] [id number] Pj Greenberg Self - patient is the insured
--- NOTE | 2024-10-01 02:07 | PC.NURSE ---
Pt medicated per MAY. taken for CT scan of abd.
[2024-10-01] MEDS: iohexoL 350 MG/ML 100 ML INFUS..BTL 85 ML IV (02:13)
--- NOTE | 2024-10-01 03:27 | ED_ITS ---
HPI - General Adult General Chief complaint: Nausea/Vomiting/Diarrhea Stated complaint: n/v/ Time Seen by Provider: 10/01/24 01:04 Source: patient Limitations: no limitations History of Present Illness ED Provider: Cielo Morales PA-C HPI narrative: 78-year-old male with a history of hypertension, osteoarthritis, GERD who presents with abdominal pain x4 days. Pain is generalized, the patient is unable to describe the nature of his discomfort. Associated nausea vomiting and diarrhea, passing mucousy stool. Denies recent hospitalization, use of antibiotics or travel. Denies sick contacts with similar symptoms, no fevers. Patient states he also fell several days ago, in his complaining of left shoulder pain. Related Data Home Medications ?Medication ?Instructions ?Recorded ?Confirmed zolpidem 10 mg tablet (Ambien) 10 mg PO BEDTIME Sleep 06/30/21 10/01/24 morphine 60 mg tablet,extended 60 mg PO BID 10/01/24 0 10/01/24 release Previous Rx's ?Medication ?Instructions ?Recorded blood pressure monitor (Blood #1 ea 07/07/21 Pressure Kit) Allergies Allergy/AdvReac Type Severity Reaction Status Date / Time shellfish derived (SHELLFISH Allergy Intermediate GI S/E Verified 09/30/24 23:38 DERIVED) pollen extracts (POLLEN) Allergy Mild RUNNY NOSE Verified 09/30/24 23:38 Review of Systems 2 Review of Systems: Yes all other systems are reviewed and are negative Constitutional: Constitutional: Denies fatigue and Denies fever(s) Cardiovascular: Cardiovascular: Denies chest pain and Denies dyspnea Respiratory: Respiratory: Denies dyspnea Gastrointestinal: Gastrointestinal: Reports abdominal pain, Reports diarrhea, Reports nausea and Reports vomiting Endocrine: Endocrine: Denies fatigue PMFSH Past Medical History Attestation statement: The following information was validated with the patient. Medical History Carotid stenosis, bilateral Depression Urolithiasis PSVT (paroxysmal supraventricular tachycardia) IBS (irritable bowel syndrome) Hypogonadism in male History of prostate cancer History of colon polyps Diverticulosis of colon Carpal tunnel syndrome Chronic headache Chronic cough Allergic rhinitis Migraine Anxiety Hypertension Surgical History H/O repair of right rotator cuff Hx of cataract surgery History of carpal tunnel release Family History Family History Brother Diabetes Prostate cancer Mother Congestive heart failure Social History Social History (Updated 10/01/24 @ 06:17 by CHA Rm) Alcohol intake: current Alcohol intake frequency: does not drink Patient Tobacco Use Status: Never used Tobacco Smoked in Last 30 Days: No Use of substances other than those prescribed or required for medical reasons: No Advance Directives: No Advance Directives Information Provided: No Do you have a plan to hurt others: No Plan service: No Current occupational status: retired 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 [employer] Current occupational exposures/hazards: No Physical Exam ED Vital Signs: Vital Signs - 24 hr 09/30/24 23:28 09/30/24 23:54 10/01/24 01:44 Temperature 99.7 F 99.7 F Pulse Rate 57 57 Respiratory Rate 17 17 17 Blood Pressure 145/60 H 145/60 H Pulse Oximetry 99 99 Oxygen Delivery Method Room Air Room Air BMI result Body Mass Index 25.2 Const Other: Alert, appears disheveled Orientation/consciousness: patient oriented x3 HENMT Other: Dry oral mucosa Resp Effort & Inspection: normal respiratory effort Cardio Other: Normal peripheral perfusion GI Other: Abdomen is soft, nondistended, generalized tenderness to palpation without guarding Skin Other: Warm dry no rash Neuro General: patient oriented x3, no focal motor deficits and CN's II-XI intact bilaterally Psych Other: Cooperative Course Reevaluation(s) Reevaluation #1: Speaking with the hospitalist, they are requesting a CT of the chest, head and neck. We will do so. We will need to signed out to the night team pending hospital admission once the formal reads are read, adding antibiotics for the ileitis, per hospitalist request Time: 03:41 Reevaluation #2: Speaking with Radiology, the patient just had a contrast burden with a CT abdomen and pelvis, inpatient wants CT brain, cervical spine and chest, CT brain we will be an accurate, the scan can be performed in 6 hours Time: 03:48 Reevaluation #3: Patient accepted for admission. Bed request placed Time: 06:19 Medications Administered Generic Name Dose Route Start Last Admin Trade Name Freq PRN Reason Stop Dose Admin Amlodipine Besylate 5 mg 10/01/24 09:00 10/01/24 08:38 Amlodipine Besylate 5 Mg Tablet PO Not Given DAILY [facility] Protocol Enoxaparin Sodium 40 mg 10/01/24 05:15 10/01/24 06:10 Enoxaparin Sodium 40 Mg/0.4 Ml Syringe SUBCUT 40 mg Q24H MARCO Administration Hydromorphone HCl 0.5 mg 10/01/24 08:00 10/01/24 13:41 Hydromorphone Hcl 0.5 Mg/0.5 Ml Syringe IVPUSH 0.5 mg Q3H PRN Administration Pain, Moderate(Pain Scale 4-6) Protocol Metronidazole 500 mg in 100 mls @ 100 mls/hr 10/01/24 12:00 10/01/24 13:05 Flagyl IV Infused Q8H MARCO Infusion Sodium Chloride 1,000 mls @ 80 mls/hr 10/01/24 09:30 10/01/24 10:21 Ns IVCONT 80 mls/hr .[id number] MARCO Administration Ondansetron HCl 4 mg 10/01/24 10:34 10/01/24 10:40 Ondansetron Hcl 4 Mg/2 Ml Vial IVPUSH 4 mg Q6H PRN Administration Nausea and Vomiting Pantoprazole Sodium 40 mg 10/01/24 10:30 10/01/24 10:27 Pantoprazole Sodium 40 Mg/10 Ml Vial IVPUSH 40 mg DAILY@0630 MARCO Administration Sodium Chloride 3 ml 10/01/24 08:00 10/01/24 16:22 0.9 % Sodium Chloride Flush 3 Ml Syringe IVFLUSH 3 ml QSHIFT MARCO Administration Discontinued Medications Generic Name Dose Route Start Last Admin Trade Name Freq PRN Reason Stop Dose Admin Amlodipine Besylate 5 mg 10/01/24 07:00 10/01/24 06:08 Amlodipine Besylate 5 Mg Tablet PO 10/01/24 07:01 5 mg ONCE ONE Administration Protocol Ceftriaxone Sodium 2 gm 10/01/24 03:43 10/01/24 04:06 Ceftriaxone Sodium 2 Gm Vial IVPUSH 10/01/24 03:44 2 gm ONCE ONE Administration Hydralazine HCl 10 mg 10/01/24 05:55 10/01/24 06:10 Hydralazine Hcl 20 Mg/Ml Vial IVPUSH 10/01/24 05:56 10 mg ONCE ONE Administration Protocol Hydromorphone HCl 1 mg 10/01/24 05:56 10/01/24 06:10 Hydromorphone Hcl 1 Mg/Ml Syringe IVPUSH 10/01/24 05:57 1 mg ONCE ONE Administration Protocol Sodium Chloride 500 mls @ 500 mls/hr 10/01/24 01:30 10/01/24 03:18 Ns IV 10/01/24 02:29 Infused .Q1H ONE Infusion Metronidazole 500 mg in 100 mls @ 100 mls/hr 10/01/24 03:43 10/01/24 05:50 Flagyl IV 10/01/24 04:42 Infused ONCE ONE Infusion Metronidazole 500 mg in 100 mls @ 100 mls/hr 10/01/24 06:30 10/01/24 07:06 Flagyl IV Not Given Q8H MARCO Iohexol 85 ml 10/01/24 02:13 10/01/24 02:13 Iohexol 350 Mg/Ml 100 Ml Infus..Btl IV 10/01/24 02:14 85 ml ONCE ONE Administration Morphine Sulfate 4 mg 10/01/24 01:30 10/01/24 01:44 Morphine Sulfate 4 Mg/Ml Cartridge IVPUSH 10/01/24 01:31 4 mg ONCE ONE Administration Protocol Ondansetron HCl 4 mg 10/01/24 01:30 10/01/24 01:44 Ondansetron Hcl 4 Mg/2 Ml Vial IVPUSH 10/01/24 01:31 4 mg ONCE ONE Administration Medical Decision Making Medical Decision Making [facility] Narrative: 78-year-old male with a history of hypertension, osteoarthritis, GERD who presents with abdominal pain x4 days. Pain is generalized, the patient is unable to describe the nature of his discomfort. Associated nausea vomiting and diarrhea, passing mucousy stool. Denies recent hospitalization, use of antibiotics or travel. Denies sick contacts with similar symptoms, no fevers. Patient states he also fell several days ago, in his complaining of left shoulder pain. Problem: Age, hypertension History: Per patient I have considered the following differential diagnoses: Traveler's diarrhea, C diff, viral gastroenteritis, diverticulitis, fracture, dislocation, contusion Plan: In regard to the abdominal pain, we will be obtaining a CT scan of the abdomen, perhaps he has diverticulitis, however his exam was nonfocal for me. He has no risk factors for C diff or traveler's diarrhea. Also unlikely to be viral gastro, he has no sick contacts with similar symptoms. Screening labs were already obtained from triage. After my initial assessment, the patient alluded to the fact that he fell several days ago, ordering an x-ray of the shoulder. Also adding an x-ray of the clavicle, the x-ray museum technician indicates that there was an obvious clavicular fracture. Ordering a sling. The patient received pain medicine and antiemetic already. I have independently reviewed the following tests: Labs: Leukocytosis with thrombocytosis noted which appear somewhat chronic, not anemic, no electrolyte abnormality noted, 1st troponin 10, the 2nd is pending, viral panel X-ray left shoulder:Impression: 1. Displaced left mid clavicular fracture. 2. Mildly displaced left 4th rib fracture. X-ray clavicle: Impression: 1. Displaced left mid clavicular fracture. 2. Mildly displaced left 4th rib fracture. CT abdomen and pelvis:IMPRESSION: 1. Findings consistent with ileitis. 2. 2.6 cm cystic lesion in the body of the pancreas most likely a cystic pancreatic neoplasm such as an intraductal papillary mucinous neoplasm. Comparison with prior imaging if available or follow-up MRI with and without contrast is recommended. 3. Colonic diverticulosis. 4. Small bilateral nonobstructing renal stones. Lab Data 09/30/24 23:49 09/30/24 23:49 Labs: Lab Results 09/30/24 09/30/24 10/01/24 Range/Units 23:34 23:49 03:25 WBC 15.6 H (4.8-10.8) X10*3/uL RBC 5.26 (4.60-5.80) X10*6/uL Hgb 15.3 (14.0-18.0) g/dl Hct 45.7 (42.0-52.0) % MCV 86.9 (80.0-98.0) fL MCH 29.1 (27.0-33.0) pg MCHC 33.5 (31.0-36.0) g/dl RDW 13.3 (11.0-16.0) % Plt Count 435 H (160-400) X10*3/uL MPV 9.8 (9.4-12.4) fL Absolute Nucleated RBC 0.000 (0.0-0.012) X10*3/uL Nucleated RBC % (auto) 0.0 (0.0-0.2) /100WBC Neutrophils % (Manual) 93 H (45-73) % Band Neutrophils % 0 L (3-5) % Lymphocytes % (Manual) 3 L (20-40) % Monocytes % (Manual) 4 (2-11) % Abs Neuts (Manual) 14.5 H (2.0-8.3) X10*3/uL Lymphocytes # (Manual) 0.5 L (1.2-4.9) X10*3/uL Monocytes # (Manual) 0.6 (0.1-1.2) X10*3/uL Toxic Vacuolation PRESENT Platelet Estimate SLIGHTLY INCREASED (NORMAL) Plt Morphology Comment NORMAL RBC Morphology NORMAL Microcytosis 1+ (5-14) /OIF Ovalocytes 1+ (5-14) /OIF Sodium 143 (135-145) mmol/L Potassium 3.9 (3.3-5.1) mmol/L Chloride 104 (96-108) mmol/L Carbon Dioxide 27 (22-29) mmol/L Anion Gap 16 (12-20) BUN 17 H (9-16) mg/dL Creatinine 0.91 (0.5-1.4) mg/dL Estim Creat Clear Calc 62.6 Estimated GFR > 60 POC Glucose 119 H (60-115) mg/dL Random Glucose 133 H (60-115) mg/dL Lactic Acid (0.5-2.0) mmol/L Calcium 10.0 D (8.4-10.2) mg/dL Magnesium 2.3 (1.6-2.6) mg/dL Total Bilirubin 1.0 (0.0-1.0) mg/dL AST 31 (5-37) U/L ALT 15 (0-40) U/L Alkaline Phosphatase 68 (39-117) U/L Troponin I High Sens 10.0 11.6 (<3.5-35.0) ng/L Total Protein 7.8 (6.5-8.0) g/dL Albumin 5.0 (3.5-5.0) g/dL Lipase 21 (8-78) U/L Urine Color Urine Appearance Urine pH (5.0-9.0) Ur Specific [place] (1.005-1.025) Urine Protein (Neg-Trace) mg/dL Urine Glucose (UA) (Negative) mg/dL Urine Ketones (Negative) mg/dL Urine Blood (Negative) Urine Nitrite (Negative) Ur Leukocyte Esterase (Negative) Urine RBC (0-2) /HPF Urine WBC (0-5) /HPF Ur Squamous Epith Cells (0-2) /HPF Urine Bacteria (None Seen) Hyaline Casts (0-2) /LPF Influenza Type A (PCR) NEGATIVE (Negative) Influenza Type B (PCR) NEGATIVE (Negative) RSV RNA Qual (PCR) NEGATIVE (Negative) SARS-CoV-2 RNA (RT-PCR) NEGATIVE (Negative) 10/01/24 10/01/24 Range/Units 03:55 04:43 WBC (4.8-10.8) X10*3/uL RBC (4.60-5.80) X10*6/uL Hgb (14.0-18.0) g/dl Hct (42.0-52.0) % MCV (80.0-98.0) fL MCH (27.0-33.0) pg MCHC (31.0-36.0) g/dl RDW (11.0-16.0) % Plt Count (160-400) X10*3/uL MPV (9.4-12.4) fL Absolute Nucleated RBC (0.0-0.012) X10*3/uL Nucleated RBC % (auto) (0.0-0.2) /100WBC Neutrophils % (Manual) (45-73) % Band Neutrophils % (3-5) % Lymphocytes % (Manual) (20-40) % Monocytes % (Manual) (2-11) % Abs Neuts (Manual) (2.0-8.3) X10*3/uL Lymphocytes # (Manual) (1.2-4.9) X10*3/uL Monocytes # (Manual) (0.1-1.2) X10*3/uL Toxic Vacuolation Platelet Estimate (NORMAL) Plt Morphology Comment RBC Morphology Microcytosis /OIF Ovalocytes /OIF Sodium (135-145) mmol/L Potassium (3.3-5.1) mmol/L Chloride (96-108) mmol/L Carbon Dioxide (22-29) mmol/L Anion Gap (12-20) BUN (9-16) mg/dL Creatinine (0.5-1.4) mg/dL Estim Creat Clear Calc Estimated GFR POC Glucose (60-115) mg/dL Random Glucose (60-115) mg/dL Lactic Acid 1.2 (0.5-2.0) mmol/L Calcium (8.4-10.2) mg/dL Magnesium (1.6-2.6) mg/dL Total Bilirubin (0.0-1.0) mg/dL AST (5-37) U/L ALT (0-40) U/L Alkaline Phosphatase (39-117) U/L Troponin I High Sens (<3.5-35.0) ng/L Total Protein (6.5-8.0) g/dL Albumin (3.5-5.0) g/dL Lipase (8-78) U/L Urine Color Yellow Urine Appearance Clear Urine pH 6.0 (5.0-9.0) Ur Specific [place] >= 1.030 H (1.005-1.025) Urine Protein 100 (2+) H (Neg-Trace) mg/dL Urine Glucose (UA) Negative (Negative) mg/dL Urine Ketones 40 (Negative) mg/dL Urine Blood Negative (Negative) Urine Nitrite Negative (Negative) Ur Leukocyte Esterase Negative (Negative) Urine RBC 0-2 (0-2) /HPF Urine WBC 0-5 (0-5) /HPF Ur Squamous Epith Cells 0-2 (0-2) /HPF Urine Bacteria None Seen (None Seen) Hyaline Casts 0-2 (0-2) /LPF Influenza Type A (PCR) (Negative) Influenza Type B (PCR) (Negative) RSV RNA Qual (PCR) (Negative) SARS-CoV-2 RNA (RT-PCR) (Negative) Discharge Plan Discharge Clinical Impression: Closed fracture of left clavicle, Fracture of left fourth rib, Ileitis, Mass of pancreas Patient Disposition: Admitted As Inpatient Interventions: Admission Worksheet (ED) Last Done: 10/01/24 14:33
[2024-10-01 03:50] LABS: Troponin-I High Sensitivity 11.6 ng/L (<3.5-35.0)
[2024-10-01] MEDS: metroNIDAZOLE/NS 500 MG/100 ML PIGGYBACK 100 MG IV ×3 (04:06→21:10)
[2024-10-01 04:07] LABS: Appearance Urine Clear; Glucose Urine UA Negative (Negative); PH 6.0 (5.0-9.0); Specific Gravity - Urine >= 1.030 (1.005-1.025); UMIC TRIGGER UACC YES
--- NOTE | 2024-10-01 05:18 | P.HPHOSP_ITS ---
History of Present Illness Date of Service: 10/01/24 Attending physician on admission: Chris Angela Chief Complaint: nausea and vomiting Patient is an 78-year-old male with past medical history osteoarthritis, hypertension, prostate cancer in remission, anxiety, depression, diverticulosis, GERD, chronic BOLDEN on morphine daily, insomnia was brought into the emergency department today for persistent nausea vomiting bile like substance. Patient has been having abdominal pain as high as 6/10. Patient states he fell approximately 4 days prior accidentally while tripping on a rug and landed on a glass coffee table (table did not break) and denies any hit to the head. Patient did not seek emergent intervention or evaluation until today. Patient denied any loss of consciousness but began to have abdominal pain with some initial diarrhea and persistent vomiting. Patient normally takes morphine daily for headaches that were diagnosed over 20 years ago and patient had not had any morphine since the fall as he ran out and did not call his doctor for his usual refill. Today patient is reporting mild cervical neck pain and mild headache. CT of the head and CT cervical spine have been ordered. No indication for C-collar at this time based on patient's clinical exam. Patient's blood pressure elevated, 184/99 right arm. Hydralazine 10 mg IV x1 provided. Patient is not normally on antihypertensives at home. Troponin is negative. ECG SR with PACs, Qtc 448. May be secondary to abdominal pain. Workup in the emergency department identified a fractured displaced left clavicle and a mildly displaced rib fracture on the left side. Patient states he had no idea he fractured his clavicle. Patient is right-handed and was not using his left side to the point that he noticed any deficiencies. Patient ambulates without a device. Patient is still drives. Patient also denies any rib pain. There is no evidence of pneumothorax. Pt is not hypoxic or short of breath at rest. CT of the abdomen and pelvis was also completed and identified a 2.6 x 1.9 cystic lesion in the body of the pancreas. Per radiologist, this could indicate intraductal papillary mucinous neoplasm. Patient has no knowledge or history of any issues with his pancreas. Patient is currently having 3/6 abdominal pain in the mid epigastric area. Patient denies any weight loss. Lipase is 21. LFTs/TBILI are normal. Patient states he has not eaten anything in the last 4 days. Patient denies any history of alcoholism or diabetes and is not on a GLP 1. In addition, CT of the abdomen indicated evidence of ileitis and diverticulosis without diverticulitis. Patient also has evidence of small bilateral nonobstructing renal stones and renal function is currently stable. Lactic acid is normal and patient does have leukocytosis of 15,000. Patient is not having any fever or chills. Patient was started on ceftriaxone in the ED. This magazine writer attempted to call patient's son Vern who lives in [facility] at [phone] but there was no answer. Patient does live alone and does have friends in the area but no family. Review of Systems 2 Review of Systems: Patient is continuing to have mild abdominal pain 3/10 with mild nausea. Patient has had no vomiting in the last 2-3 hours. Patient denies any diarrhea for the last 48 hours. Patient is denying any chest pain or shortness of breath at rest or with exertion. Patient is having a mild headache with no visual changes. Yes all other systems are reviewed and are negative [facility] Medical History Carotid stenosis, bilateral Depression Urolithiasis PSVT (paroxysmal supraventricular tachycardia) IBS (irritable bowel syndrome) Hypogonadism in male History of prostate cancer History of colon polyps Diverticulosis of colon Carpal tunnel syndrome Chronic headache Chronic cough Allergic rhinitis Migraine Anxiety Hypertension Cognitive capacity: Alert and orientated Functional capacity: uses cane/walker Family History Brother Diabetes Prostate cancer Mother Congestive heart failure Surgical History H/O repair of right rotator cuff Hx of cataract surgery History of carpal tunnel release Social History (Updated 10/01/24 @ 06:17 by CHA Rm) Alcohol intake: current Alcohol intake frequency: does not drink Patient Tobacco Use Status: Never used Tobacco service: No Current occupational status: retired 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 [employer] Current occupational exposures/hazards: No Ebola Risk: Travel/Contact With Anyone From Affected Area/s: No Has Patient Experienced Ebola Symptoms: No Meds Allergies Allergy/AdvReac Type Severity Reaction Status Date / Time shellfish derived (SHELLFISH Allergy Intermediate GI S/E Verified 09/30/24 23:38 DERIVED) pollen extracts (POLLEN) Allergy Mild RUNNY NOSE Verified 09/30/24 23:38 Active Medications: Current Medications Acetaminophen (Acetaminophen 325 Mg Tablet) 650 mg PO Q6H PRN PRN Reason: Pain, Mild 1-3,fever,headache Albuterol/Ipratropium (Albuterol/Iprat 2.5/0.5mg 3 Ml Ampul.Neb) 3 ml INHALE Q4H PRN PRN Reason: Shortness of Breath/Wheezing Calcium Carbonate (Calcium Carbonate 750 Mg Tab.Chew) 750 mg PO Q4H PRN PRN Reason: Heartburn Enoxaparin Sodium (Enoxaparin Sodium 40 Mg/0.4 Ml Syringe) 40 mg SUBCUT Q24H MARCO Magnesium Hydroxide (Milk Of Magnesia 30 Ml Oral.Susp) 30 ml PO DAILY PRN PRN Reason: Constipation Melatonin (Melatonin 3 Mg Tablet) 6 mg PO BEDTIME PRN PRN Reason: Insomnia Ondansetron HCl (Ondansetron Hcl 4 Mg/2 Ml Vial) 4 mg IVPUSH Q8H PRN PRN Reason: Nausea and Vomiting Senna (Sennosides 8.6 Mg Tablet) 17.2 mg PO BEDTIME MARCO Sodium Chloride (0.9 % Sodium Chloride Flush 3 Ml Syringe) 3 ml IVFLUSH QSHIFT [facility] Home Medications ?Medication ?Instructions ?Recorded ?Confirmed ?Last Taken ?Type alprazolam 0.5 mg tablet 0.5 mg PO DAILY 03/21/20 Unknown History bupropion HCl 300 mg 24 hr tablet, 300 mg PO DAILY 03/21/20 Unknown History extended release methylphenidate HCl 18 mg 1 tab PO QAM 03/21/20 Unknown History tablet,extended release 24 hr morphine 50 mg capsule,extended 1 cap PO BID 03/21/20 03/21/20 Unknown History release pellets trazodone 100 mg tablet 100 mg PO DAILY 03/21/20 Unknown History ketoconazole 2 % shampoo 1 appl topical 2XW 06/30/21 Unknown History omeprazole 20 mg capsule,delayed 20 mg PO DAILY Unknown History release zolpidem 10 mg tablet 10 mg PO BEDTIME PRN 2 Unknown History Physical Exam 2 Vital Signs and Narrative: Vital Signs: Last Vital Signs Temp 99.7 F 09/30/24 23:54 Pulse 57 09/30/24 23:54 Resp 17 10/01/24 01:44 BP 145/60 H 09/30/24 23:54 Pulse Ox 99 09/30/24 23:54 O2 Del Method Room Air 09/30/24 23:54 BMI result Body Mass Index 25.2 Alert and orientated X3, able to give good history. Neuro: CN II-X11 intact, no deficits, visual acuity intact EYES: PERRLA, EOM intact, sclera nonicteric, conjunctiva pink ENT: hearing intact, no issues with swallowing, uvula midline, lips moist, nares patent no epistaxis, dentition in good repair Cardiac: S1 S2 RRR, no murmur, no JVD, no edema in Lower ext Pulmonary: lungs clear to auscultation B Abdominal: BS active in all 4 quadrants, no guarding, mild tenderness mid episgastric area, no rebounding MSK: strength 5/5 R upper and lower extremities, unable to assess strength LUE : no CVA tenderness no bladder distension Extremities: no edema in lower extremities, PT and DP pulses palpable +2 Psych: mood emotional, judgement and insight good Skin: intact, no report of open wounds or abrasions Results Labs 09/30/24 23:49 09/30/24 23:49 Labs: Laboratory Results - last 24 hr 09/30/24 09/30/24 10/01/24 23:34 23:49 03:25 MCV 86.9 MCH 29.1 MCHC 33.5 RDW 13.3 Plt Count 435 H MPV 9.8 Absolute Nucleated RBC 0.000 Nucleated RBC % (auto) 0.0 Neutrophils % (Manual) 93 H Band Neutrophils % 0 L Lymphocytes % (Manual) 3 L Monocytes % (Manual) 4 Abs Neuts (Manual) 14.5 H Lymphocytes # (Manual) 0.5 L Monocytes # (Manual) 0.6 Toxic Vacuolation PRESENT Platelet Estimate SLIGHTLY INCREASED Plt Morphology Comment NORMAL RBC Morphology NORMAL Microcytosis 1+ (5-14) Ovalocytes 1+ (5-14) Anion Gap 16 Estim Creat Clear Calc 62.6 Estimated GFR > 60 POC Glucose 119 H Random Glucose 133 H Lactic Acid Calcium 10.0 D Magnesium 2.3 Total Bilirubin 1.0 AST 31 ALT 15 Alkaline Phosphatase 68 Troponin I High Sens 10.0 11.6 Total Protein 7.8 Albumin 5.0 Lipase 21 Urine Color Urine Appearance Urine pH Ur Specific Mallory Urine Protein Urine Glucose (UA) Urine Ketones Urine Blood Urine Nitrite Ur Leukocyte Esterase Urine RBC Urine WBC Ur Squamous Epith Cells Urine Bacteria Hyaline Casts Influenza Type A (PCR) NEGATIVE Influenza Type B (PCR) NEGATIVE RSV RNA Qual (PCR) NEGATIVE SARS-CoV-2 RNA (RT-PCR) NEGATIVE 10/01/24 10/01/24 03:55 04:43 MCV MCH MCHC RDW Plt Count MPV Absolute Nucleated RBC Nucleated RBC % (auto) Neutrophils % (Manual) Band Neutrophils % Lymphocytes % (Manual) Monocytes % (Manual) Abs Neuts (Manual) Lymphocytes # (Manual) Monocytes # (Manual) Toxic Vacuolation Platelet Estimate Plt Morphology Comment RBC Morphology Microcytosis Ovalocytes Anion Gap Estim Creat Clear Calc Estimated GFR POC Glucose Random Glucose Lactic Acid 1.2 Calcium Magnesium Total Bilirubin AST ALT Alkaline Phosphatase Troponin I High Sens Total Protein Albumin Lipase Urine Color Yellow Urine Appearance Clear Urine pH 6.0 Ur Specific Mallory >= 1.030 H Urine Protein 100 (2+) H Urine Glucose (UA) Negative Urine Ketones 40 Urine Blood Negative Urine Nitrite Negative Ur Leukocyte Esterase Negative Urine RBC 0-2 Urine WBC 0-5 Ur Squamous Epith Cells 0-2 Urine Bacteria None Seen Hyaline Casts 0-2 Influenza Type A (PCR) Influenza Type B (PCR) RSV RNA Qual (PCR) SARS-CoV-2 RNA (RT-PCR) ECG Attestation: I personally reviewed and interpreted this ECG as follows: ( PACs Qtc 448) Prior ECG tracings: available for review Imaging Comment: CT ABD PELVIS IMPRESSION: 1. Findings consistent with ileitis. 2. 2.6 cm cystic lesion in the body of the pancreas most likely a cystic pancreatic neoplasm such as an intraductal papillary mucinous neoplasm. Comparison with prior imaging if available or follow-up MRI with and without contrast is recommended. 3. Colonic diverticulosis. 4. Small bilateral nonobstructing renal stones. Left Clavicle Impression: 1. Displaced left mid clavicular fracture. 2. Mildly displaced left 4th rib fracture. 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 Ileitis -GI consilted -Pt will continue ceftriaxone and flagyl added -CLear diet on order currently, pt states he is hungry, will make NPO if symptomatic -Diarrhea ended 2 days prior, no orders for stool cultures at this time Pancreatic cystic lesion, possibly a neoplasm -Lipase WNL -Abd pain 09/04, dilaudid ordered (pt has not had his morphine in 4 days) -GI consulted -Oncology consulted/ see as an outpatient -Likely will need MRI inpatient HTN -Hydralazine IV prn -Amlodipine po if no improvement -Pt has no hx of HTN and is not normally on antihypertensives, likely from pain -Cardiac workup negative S/p mechanical fall with current neck pain, BOLDEN (noted pt has chronic BOLDEN's) -CT cervical spine and CT Head pending -Neuro exam reassurring -Pt has long hx of chronic BOLDEN's on morphine daily (no morphine in 5 days) -PT evaluation when pt is ready -see below for specific injuries L displaced clavicle fracture s/p mechanical fall -Orhtopedics consulted -Sling in place -Pt is right handed -OT if needed Left mildly displaced RIb fracture s/p mechanical fall -No evidence of PTX -Incentive spirometer ordered to help prevent PNA, pillow splint to brace chest for coughing -No current indication for thoracic, fx is mildly displaced -Pain management Chronic BOLDEN on morphine daily -Currently receiving dilaudid for abd pain with good effect on BOLDEN -Pt states he ran out of morphine and did not call for refill, has not had any for 4 days, no s/s of withdrawal Diverticulosis -Chronic condition -No evidence of diverticulitis -Avoid foods with seeds Hx of Anxiety and Depression -Pt is not suicidal -Pt is emotional, son lives in [facility] - attempted to call son X2 per pt's request, no answer #[phone] Vern Montesinos -Qtc stable -Continue home medications once med rec completed DVT Prophylaxis: Lovoneox PPI Prophylaxis: Protonix MED REC PENDING FULL CODE STATUS Quality Stroke Does the patient have a stroke diagnosis?: No Reason for No Anti-thrombotic by Day Two: N/A - Med Ordered VTE Prior VTE?: No VTE Risk Level:: Medical - moderate - high VTE Device Contraindication: N/A - Device Ordered VTE Drug Contraindication: N/A - Med Ordered
--- NOTE | 2024-10-01 05:29 | PC.NURSE ---
hospitalist at beside , aware of high b/p.
--- NOTE | 2024-10-01 06:11 | PC.NURSE ---
pt medicated per mar, tolerated whole well with water and medicated per mar for high bp
--- NOTE | 2024-10-01 08:39 | PC.NURSE ---
Provider notified of BP stating to hold po amlodipine
--- NOTE | 2024-10-01 08:47 | PHA.MEDREC ---
Addendum entered by Paddy Saez RPh 10/01/24 09:59: MED REC REVIEWED BY [facility] Original Note: Pharmacy Consult ? Medication Reconciliation Pharmacy has completed the medication reconciliation. Spoke with pt and he confirmed his medications. Pt confirmed he takes Ambien 10mg every night instead of PRN; pt having trouble sleeping lately and the Ambien helps pt. Pt confused wether he took any medications yesterday or the day before.
[2024-10-01] MEDS: 0.9 % Sodium Chloride Flush 3 ML SYRINGE IVFLUSH ×3 (09:11→21:59)
--- NOTE | 2024-10-01 09:28 | MHC.CM.PN ---
CM met with Patient at bedside, in the ED , and addressed IMM with him (original was given to Patient and a copy will be placed on the karen). 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 Home/self care is the goal and CM has initiated and will follow for dc planning. PCP is Dr. Shaylee Shin and Son/Vern is the HCP. Patient may require assist with transport to home at time of dc.
--- NOTE | 2024-10-01 09:59 | MHC.EDTECH ---
NURSE WANTED THE PT TO BE BLADDER SCANNED BECAUSE PT KEPT SAYING THEIR HAVING TROUBLE URINATING. BLADDER SCANED THE PT HAS 179ML.
--- NOTE | 2024-10-01 10:22 | PM.EVENT ---
Event Note Date of Service: 10/01/24 Event Note: the patient seen and evaluated this morning reporting abdominal pain but no nausea or vomiting on clear liquids and IV fluids Continue IV antibiotics of Ceftriaxone and Flagyl Check CEA, CA19-9 and Amylase Pending GI and oncology eval for Pancreatic cyst Pending Orthopedic eval for Left clavicle fracture PT eval Time Spent With Patient Time: Total time managing care of this patient today ____ minutes.
[2024-10-01 10:40] LABS: Amylase 63 U/L (28-100)
--- NOTE | 2024-10-01 10:41 | PC.NURSE ---
Pt vomited a mod amount of green/brown liquid. Provider aware- order received. Also c/o abd pain. medicated as ordered. remains A&O X4 VSS sling in place left arm. IVF infusing. mouth care given as well.
[2024-10-01 11:04] LABS: Carcinoembryonic Antigen 3.40 ng/mL
--- NOTE | 2024-10-01 12:04 | PM.CNOR ---
History of Present Illness HPI Consult date: 10/01/24 Chief complaint: nausea vomiting Narrative: Mr. Greenberg is an 78-year-old right-hand dominant male with a past medical history significant for hypertension, osteoarthritis and GERD. He presented to the emergency department today for evaluation of abdominal pain for the past 4 days. He reports that he fell several days ago on the coffee table and is also complaining of left shoulder pain with an obvious deformity over the clavicle. Review of Systems Review of Systems: Yes all other systems are reviewed and are negative PMF Past Medical History Medical History Carotid stenosis, bilateral Depression Urolithiasis PSVT (paroxysmal supraventricular tachycardia) IBS (irritable bowel syndrome) Hypogonadism in male History of prostate cancer History of colon polyps Diverticulosis of colon Carpal tunnel syndrome Chronic headache Chronic cough Allergic rhinitis Migraine Anxiety Hypertension Family History Family History Brother Diabetes Prostate cancer Mother Congestive heart failure Surgical History Surgical History H/O repair of right rotator cuff Hx of cataract surgery History of carpal tunnel release Social History Social History (Updated 10/01/24 @ 06:17 by CHA Rm) Alcohol intake: current Alcohol intake frequency: does not drink Patient Tobacco Use Status: Never used Tobacco Smoked in Last 30 Days: No Use of substances other than those prescribed or required for medical reasons: No Advance Directives: No Advance Directives Information Provided: No Do you have a plan to hurt others: No Plan service: No Current occupational status: retired 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 [employer] Current occupational exposures/hazards: No Travel History Ebola Risk: Travel/Contact With Anyone From Affected Area/s: No Has Patient Experienced Ebola Symptoms: No Meds Allergies Allergy/AdvReac Type Severity Reaction Status Date / Time shellfish derived (SHELLFISH Allergy Intermediate GI S/E Verified 09/30/24 23:38 DERIVED) pollen extracts (POLLEN) Allergy Mild RUNNY NOSE Verified 09/30/24 23:38 Active Medications: Current Medications Acetaminophen (Acetaminophen 325 Mg Tablet) 650 mg PO Q6H PRN PRN Reason: Pain, Mild 1-3,fever,headache Albuterol/Ipratropium (Albuterol/Iprat 2.5/0.5mg 3 Ml Ampul.Neb) 3 ml INHALE Q4H PRN PRN Reason: Shortness of Breath/Wheezing Amlodipine Besylate (Amlodipine Besylate 5 Mg Tablet) 5 mg PO DAILY [facility]; Protocol Last Admin: 10/01/24 08:38 Dose: Not Given Calcium Carbonate (Calcium Carbonate 750 Mg Tab.Chew) 750 mg PO Q4H PRN PRN Reason: Heartburn Ceftriaxone Sodium (Ceftriaxone Sodium 1 Gm Vial) 1 gm IVPUSH Q24H MARCO Enoxaparin Sodium (Enoxaparin Sodium 40 Mg/0.4 Ml Syringe) 40 mg SUBCUT Q24H [facility] Last Admin: 10/01/24 06:10 Dose: 40 mg Hydromorphone HCl (Hydromorphone Hcl 0.5 Mg/0.5 Ml Syringe) 0.5 mg IVPUSH Q3H PRN; Protocol PRN Reason: Pain, Moderate(Pain Scale 4-6) Last Admin: 10/01/24 10:35 Dose: 0.5 mg Metronidazole (Flagyl) 500 mg in 100 mls @ 100 mls/hr IV Q8H [facility] Last Admin: 10/01/24 12:00 Dose: 100 mls/hr Sodium Chloride (Ns) 1,000 mls @ 80 mls/hr IVCONT .[id number] [facility] Last Admin: 10/01/24 10:21 Dose: 80 mls/hr Magnesium Hydroxide (Milk Of Magnesia 30 Ml Oral.Susp) 30 ml PO DAILY PRN PRN Reason: Constipation Melatonin (Melatonin 3 Mg Tablet) 6 mg PO BEDTIME PRN PRN Reason: Insomnia Ondansetron HCl (Ondansetron Hcl 4 Mg/2 Ml Vial) 4 mg IVPUSH Q6H PRN PRN Reason: Nausea and Vomiting Last Admin: 10/01/24 10:40 Dose: 4 mg Pantoprazole Sodium (Pantoprazole Sodium 40 Mg/10 Ml Vial) 40 mg IVPUSH DAILY@0630 [facility] Last Admin: 10/01/24 10:27 Dose: 40 mg Sodium Chloride (0.9 % Sodium Chloride Flush 3 Ml Syringe) 3 ml IVFLUSH QSHIFT [facility] Last Admin: 10/01/24 09:11 Dose: 3 ml Zolpidem Tartrate (Zolpidem Tartrate 5 Mg Tablet) 10 mg PO BEDTIME MARCO Home Medications ?Medication ?Instructions ?Recorded ?Confirmed ?Last Taken ?Type zolpidem 10 mg tablet (Ambien) 10 mg PO BEDTIME Sleep 06/30/21 10/01/24 2 Days Ago History ~09/29/24 morphine 60 mg tablet,extended 60 mg PO BID 10/01/24 10/01/24 2 Days Ago History release ~09/29/24 Physical Exam Vital Signs: Vital Signs: Last Vital Signs Temp 99.9 F 10/01/24 05:28 Pulse 84 10/01/24 09:08 Resp 18 10/01/24 10:35 BP 140/60 H 10/01/24 09:08 Pulse Ox 99 10/01/24 09:08 O2 Del Method Room Air 10/01/24 09:08 BMI result Body Mass Index 25.2 Const: General: cooperative, healthy appearing and no acute distress Resp: Effort & Inspection: normal respiratory effort and able to speak in complete sentences Extrem: Other: Left clavicle obvious deformity midshaft. Skin is intact. No evidence of open fracture. Denies any numbness or tingling. He has full function of his elbow hand and wrist. NVI. Results Labs 09/30/24 23:49 09/30/24 23:49 Labs: Abnormal lab results 09/30/24 09/30/24 10/01/24 Range/Units 23:34 23:49 03:55 WBC 15.6 H (4.8-10.8) X10*3/uL Plt Count 435 H (160-400) X10*3/uL Neutrophils % (Manual) 93 H (45-73) % Band Neutrophils % 0 L (3-5) % Lymphocytes % (Manual) 3 L (20-40) % Abs Neuts (Manual) 14.5 H (2.0-8.3) X10*3/uL Lymphocytes # (Manual) 0.5 L (1.2-4.9) X10*3/uL BUN 17 H (9-16) mg/dL POC Glucose 119 H (60-115) mg/dL Random Glucose 133 H (60-115) mg/dL Ur Specific Haworth >= 1.030 H (1.005-1.025) Urine Protein 100 (2+) H (Neg-Trace) mg/dL H & H 09/30/24 Range/Units 23:49 Hgb 15.3 (14.0-18.0) g/dl Hct 45.7 (42.0-52.0) % All other labs normal. Assessment and Plan (1) Closed fracture of left clavicle: Status: Acute X-rays of the left clavicle reviewed and significant for displaced left midshaft clavicle fracture Sling for comfort for the left upper extremity Encouraged the patient to come out of the sling to work on gentle motion of the elbow (pronation, supination, flexion and extension) as well as the wrist (flexion, extension, ulnar and radial deviation) and hand (finger flexion, extension, abduction, adduction) No overhead reaching with the left upper extremity No pushing or pulling with the left upper extremity Patient should follow up with orthopedics outpatient after discharge Procedures Date of Service Date of Service: 10/01/24
--- NOTE | 2024-10-01 14:32 | PC.NURSE ---
Pt remains A&O X4 VSS no further vomiting but medicated with effect at 13:30 for abd pain. sleeping at this time.
--- NOTE | 2024-10-01 14:54 | MHC.EDTECH ---
rn respected a 2nd bladder scan, pt bladder was 110ml.
--- NOTE | 2024-10-01 17:14 | PM.EVENT ---
Event Note Date of Service: 10/01/24 Event Note: GI Consult-Full note dictated. History from patient, albeit a little bit vague, and from EMR. Imp/Recs: 1. Ileitis-seems that his symptoms are rather acute with some nausea, discomfort, loose stools, and anorexia, as opposed to a chronic condition Diff dx: Infectious eneritis vs. Crohn's. I have ordered stool specimens. F/U labs. Start clear liquids. Colonoscopy at some point if not improving. 2. Pancreatic cyst-I suspect this is an incidental finding and not symptomatic. Suspect IPMN, doubt malignancy. Check CA 19-9 antigen level. Could obtain an outpatient MRI with MRCP, and then repeat scan for follow up in 1 year. Given his age I don't think he would need much follow up for this unless it turns out it is looking like a malignant process, in which case I would recommend an EUS with aspiration. D/W patient in detail and he is comfortable with this plan. Thanks Time Spent With Patient Time: Total time managing care of this patient today ____ minutes.
--- NOTE | 2024-10-01 17:35 | PC.NURSE ---
Dr Gorman was at the bedside for consult. pt napping prior to eval. Continues to await admission bed assignment
--- NOTE | 2024-10-01 19:56 | PC.NURSE ---
this rn assumed care of pt, pt resting in stretcher, no acute distress noted
--- NOTE | 2024-10-01 21:02 | PC.NURSE ---
pt assisted with bed change and repositioning at this time
--- NOTE | 2024-10-01 21:14 | PC.NURSE ---
vital signs obtained at this time, pt noted to have high blood pressure, darcy payroll consultant contacted at this time, no new orders.
[2024-10-02] VITALS (7 sets, daily range): BP systolic 138–204; BP diastolic 74–88; PULSE 62–89; RESP 16–20; TEMP 36.9–37.6; O2SAT 93–98
--- NOTE | 2024-10-02 04:47 | CONS_ITS ---
DATE OF SERVICE: 10/01/2024 REASON FOR CONSULTATION: Abdominal discomfort, diarrhea, abnormal CT scan of GI tract and pancreas, nausea, and anorexia. HISTORY OF PRESENT ILLNESS: This has been obtained from the patient and the medical record. The patient seems to be a fairly good historian, but is somewhat vague at times. The patient is an 78-year-old male, who was admitted to the ER yesterday after being brought to the ER for evaluation after a fall at home. He describes that he was getting up to come to the ER, but then fell at home. He apparently hit a table. However, there was no head trauma, nor reported loss of consciousness. The patient describes at least over the past few days he has had some new GI symptoms including some generalized lower abdominal discomfort, nausea, anorexia, and some loose stool. During this time, he did not have any vomiting, hematemesis, coffee-grounds emesis, hematochezia, nor melena. Prior to these symptoms, he reports that he was not having any particular GI issues and typically has a good appetite and denies abdominal pain. His bowel movements are usually fairly regular as well. The patient denies any travel, antibiotic use, nor ill contacts. He describes a colonoscopy many, many years ago. He denies any known family history of inflammatory bowel disease, GI malignancy, nor colon polyps. He denies any significant heartburn, dysphagia, nor postprandial upper abdominal pain. Since admission to the hospital, he has been afebrile. Medications at home included morphine for chronic headaches and Ambien. Past medical history of hypertension. Arthritis. Prostate cancer. Anxiety. Depression. Reflux and chronic headaches. He denies history of DC, diabetes, stroke, nor lung disease. He denies any history of surgeries. He denies history of pancreatic disease. He denies any history of liver disease. MEDICATIONS: At home included morphine and Ambien. Medications here in the hospital include acetaminophen, amlodipine, Tums, ceftriaxone, Lovenox, Dilaudid p.r.n., melatonin p.r.n., IV Flagyl, milk of magnesia p.r.n., Zofran p.r.n., IV Protonix, Ambien p.r.n. PAST MEDICAL HISTORY: He has a diagnosis of some arthritis, hypertension, depression, history of SVT, prostate cancer, chronic cough, migraines, anxiety. PAST SURGICAL HISTORY: Reported surgeries include cataract, carpal tunnel, and rotator cuff. SOCIAL HISTORY: He reports he is and lives by himself. 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 He has 1 son, who lives in [place]. FAMILY HISTORY: Noncontributory. There is no family history of inflammatory bowel disease, pancreas disease, nor GI malignancy. REVIEW OF SYSTEMS: CONSTITUTIONAL: He reports he had been feeling fairly well up until about the past week or so when these GI symptoms started and then he had a fall at home. CARDIAC: No chest pain. PULMONARY: No cough. No hemoptysis. GI: As above. URINARY: No dysuria. No hematuria. NEUROLOGIC: He does have chronic headaches. PHYSICAL EXAMINATION: GENERAL: The patient is a pleasant alert male. He does not appear to be in any distress. He does not appear to have lost any significant amounts of weight. SKIN: Warm and dry. Nonjaundiced. ABDOMEN: Soft, nondistended with some mild lower abdominal tenderness, more so on the right. There is no mass, rebound, or guarding. EXTREMITIES: Without edema. NEUROLOGICAL: He does answer questions appropriately. He is oriented to person, place, and year. He does know his birthday. LABORATORY DATA: White blood cell count 15.6, hemoglobin 15.3, MCV 87, platelets 435,000. Lactic acid level 1.2. Amylase 63. CEA level 3.4. CA-19-9 is pending. Normal electrolytes. BUN 17, creatinine 0.9. Normal liver profile. Albumin 5.0, lipase 21. CT scan of the abdomen and pelvis describes some mild ileitis with some wall thickening of the ileum and some surrounding inflammation. There is no bowel obstruction. There is no free fluid. There is a 2.6 pancreatic cyst in the body of the pancreas consistent with a probable intraductal papillary mucinous neoplasm. There was no sign of pancreatitis. IMPRESSION: Given the patient's GI symptomatology, I suspect this represents a relatively acute process, at least by his history, with something such as a bacterial or viral enteritis. Another possibility would be that of underlying Crohn's disease given the CT description. At this point, I have ordered stool specimens, would keep him on a liquid diet, follow up laboratories, and continue supportive care. If things persist without any clear etiology, I would then recommend eventual colonoscopy to inspect the ascending colon and ileum. However, if things improve and he is feeling better with resolution of his symptoms, then he would not need a colonoscopy. If he is feeling better at some point, he could have his diet advanced over the next day or 2. In regard to the finding of the pancreatic cyst, I suspect this is a benign condition given its appearance on the CT scan. A CA-19-9 has already been ordered. Given his age, I doubt we would have to be too aggressive in followup, but I would recommend an outpatient MRI with MRCP and then a repeat scan in 1 year. If there is any indication of a higher suspicion for malignancy, we could then proceed with endoscopic ultrasound with aspiration and biopsy if need be. I did review all this with the patient and he is comfortable with the plan. Thanks for the consultation. MD ADRIÁN Lowery/MORGAN / [id number] MTDAdore
[2024-10-02] MEDS: metroNIDAZOLE/NS 500 MG/100 ML PIGGYBACK 100 MG IV ×3 (05:46→19:52)
[2024-10-02 06:25] LABS: Hematocrit 41.7 % (42.0-52.0); Hemoglobin 14.0 g/dl (14.0-18.0); Imm Gran Abs Auto 0.10 X10*3/uL (0.00-0.03); Imm Gran Pct Auto 0.7 % (0.0-0.4); Lymphocytes Absolute Auto 1.5 X10*3/uL (1.2-4.9); MANUAL DIFF FLAG SCAN; Mean Corpuscular HGB Conc 33.6 g/dl (31.0-36.0); Mean Corpuscular Hemoglobin 29.3 pg (27.0-33.0); Mean Corpuscular Volume 87.2 fL (80.0-98.0); NRBC Abs Auto 0.000 X10*3/uL (0.0-0.012); NRBC Pct Auto 0.0 /100WBC (0.0-0.2); Platelet Count 396 X10*3/uL (160-400); Red Blood Count 4.78 X10*6/uL (4.60-5.80); SCAN SMEAR FLAG 1; White Blood Count 15.2 X10*3/uL (4.8-10.8)
[2024-10-02 06:27] LABS: Hematocrit 41.1 % (42.0-52.0); Hemoglobin 13.9 g/dl (14.0-18.0); Imm Gran Abs Auto 0.08 X10*3/uL (0.00-0.03); Imm Gran Pct Auto 0.5 % (0.0-0.4); Lymphocytes Absolute Auto 1.5 X10*3/uL (1.2-4.9); MANUAL DIFF FLAG SCAN; Mean Corpuscular HGB Conc 33.8 g/dl (31.0-36.0); Mean Corpuscular Hemoglobin 29.4 pg (27.0-33.0); Mean Corpuscular Volume 87.1 fL (80.0-98.0); NRBC Abs Auto 0.000 X10*3/uL (0.0-0.012); NRBC Pct Auto 0.0 /100WBC (0.0-0.2); Platelet Count 396 X10*3/uL (160-400); Red Blood Count 4.72 X10*6/uL (4.60-5.80); SCAN SMEAR FLAG 1; White Blood Count 15.6 X10*3/uL (4.8-10.8)
[2024-10-02 06:40] LABS: Alanine Aminotransferase 9 U/L (0-40); Albumin Level 3.9 g/dL (3.5-5.0); Alkaline Phosphatase 53 U/L (39-117); Anion Gap 15 (12-20); Aspartate Amino Transferase 22 U/L (5-37); Blood Urea Nitrogen 20 mg/dL (9-16); Calcium 8.6 mg/dL (8.4-10.2); Carbon Dioxide 25 mmol/L (22-29); Chloride 106 mmol/L (96-108); Creatinine Clr Calc Pharmacy 61.2; Estimated Glomerular Filt Rate > 60; Potassium 3.5 mmol/L (3.3-5.1); Sodium 142 mmol/L (135-145); Total Protein 6.2 g/dL (6.5-8.0)
--- NOTE | 2024-10-02 14:36 | MHC.CM.PN ---
EMR reviewed, PT evaluated pt and recommend STR. This CM met with pt to discuss STR, pt is in agreement with going. List of facilities near [place] printed from [facility] and given to the pt to review, will await pt preferences before placing referral.
--- NOTE | 2024-10-02 15:12 | P.CNHO_ITS ---
Subjective - Subjective Chief complaint: Abdominal discomfort Patient: new to practice Consult date: 10/02/24 Requesting Physician: Hospitalist team Primary Care Provider: Shaylee Shin CNP Video Game Producer Utilized?: No - Yoruba Speaking HPI - Consult Narrative Reason for consult: Pancreatic lesion Narrative: Pj Greenberg is a 78 year old male who [place] [facility] [place] because of abdominal discomfort that has been going on for about a week. Unfortunately whilst he was being brought to the ER he suffered a fall at home and hurt his left shoulder. Patient describes some nausea without vomiting occasional loose stools along with abdominal discomfort. His appetite has been somewhat poor only recently, he denies any significant weight loss. He denies any recent infections or use of antibiotics. He is on longstanding morphine for chronic headaches. He was diagnosed with prostate cancer almost 15 years ago and he received radiation therapy in [place]. He does not consume any alcohol and never smoked. 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 Family history significant for breast cancer in her mother, she was diagnosed in her late 40s. Father was a heavy smoker, he of lung cancer. An older brother who was also treated for prostate cancer. He has 1 son who lives in [facility]. He is . Patient is fully independent lives at home by himself. Review of Systems - Constitutional Reports malaise, Denies anorexia, Denies lack of energy, Denies weight loss - Cardiovascular Denies chest pain with activity, Denies irregular heart rhythm, Denies leg pain with activity - Respiratory Denies chest congestion, Denies cough, Denies hemoptysis, Denies dyspnea - Gastrointestinal Reports abdominal pain, Reports change in bowel habits, Denies bright, red blood in stools, Denies coffee ground vomit, Denies dyspepsia - Genitourinary Genitourinary: Denies blood in urine - Musculoskeletal Denies back pain [facility] Medical History: Medical History (Last Reviewed 10/01/24 @ 22:20 by Yue Singh RN) Allergic rhinitis Anxiety Carotid stenosis, bilateral Carpal tunnel syndrome Chronic cough Chronic headache Depression Diverticulosis of colon History of colon polyps History of prostate cancer Hypertension Hypogonadism in male IBS (irritable bowel syndrome) Migraine PSVT (paroxysmal supraventricular tachycardia) Urolithiasis Functional capacity: uses cane/walker Family History: Family History (Last Reviewed 10/01/24 @ 05:20 by [facility] Rm) Brother Diabetes Prostate cancer Mother Congestive heart failure Surgical History: Surgical History (Last Reviewed 10/01/24 @ 22:20 by Yue Singh RN) H/O repair of right rotator cuff History of carpal tunnel release Hx of cataract surgery Social History: Social History (Last Updated 10/01/24 @ 06:17 by [facility]A Rm) Living Situation History: Household Members: None Housing: House Do you presently have visiting nurse or other home services: No Tobacco History: Patient Tobacco Use Status: Never used Tobacco Occupation Assessmet: service: No Current occupational status: retired 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 [employer] Current occupational exposures/hazards: No - Travel History Ebola Risk: Travel/Contact With Anyone From Affected Area/s: No Has Patient Experienced Ebola Symptoms: No Home Medications and Allergies Current Medications: Current Medications Acetaminophen (Acetaminophen 325 Mg Tablet) 650 mg PO Q6H PRN PRN Reason: Pain, Mild 1-3,fever,headache Albuterol/Ipratropium (Albuterol/Iprat 2.5/0.5mg 3 Ml Ampul.Neb) 3 ml INHALE Q4H PRN PRN Reason: Shortness of Breath/Wheezing Amlodipine Besylate (Amlodipine Besylate 5 Mg Tablet) 5 mg PO DAILY MARCO; Protocol Last Admin: 10/02/24 09:26 Dose: 5 mg Calcium Carbonate (Calcium Carbonate 750 Mg Tab.Chew) 750 mg PO Q4H PRN PRN Reason: Heartburn Ceftriaxone Sodium (Ceftriaxone Sodium 1 Gm Vial) 1 gm IVPUSH Q24H MARCO Last Admin: 10/02/24 03:42 Dose: 1 gm Enoxaparin Sodium (Enoxaparin Sodium 40 Mg/0.4 Ml Syringe) 40 mg SUBCUT Q24H MARCO Last Admin: 10/02/24 05:51 Dose: 40 mg Hydralazine HCl (Hydralazine Hcl 20 Mg/Ml Vial) 10 mg IVPUSH Q6H PRN; Protocol PRN Reason: SBP > 160 Hydromorphone HCl (Hydromorphone Hcl 0.5 Mg/0.5 Ml Syringe) 0.5 mg IVPUSH Q3H PRN; Protocol PRN Reason: Pain, Moderate(Pain Scale 4-6) Last Admin: 10/02/24 14:19 Dose: 0.5 mg Metronidazole (Flagyl) 500 mg in 100 mls @ 100 mls/hr IV Q8H [facility] Last Infusion: 10/02/24 12:34 Dose: Infused Sodium Chloride (Ns) 1,000 mls @ 80 mls/hr IVCONT .[id number] [facility] Last Admin: 10/02/24 09:26 Dose: 80 mls/hr Magnesium Hydroxide (Milk Of Magnesia 30 Ml Oral.Susp) 30 ml PO DAILY PRN PRN Reason: Constipation Melatonin (Melatonin 3 Mg Tablet) 6 mg PO BEDTIME PRN PRN Reason: Insomnia Ondansetron HCl (Ondansetron Hcl 4 Mg/2 Ml Vial) 4 mg IVPUSH Q6H PRN PRN Reason: Nausea and Vomiting Last Admin: 10/02/24 13:22 Dose: 4 mg Pantoprazole Sodium (Pantoprazole Sodium 40 Mg/10 Ml Vial) 40 mg IVPUSH DAILY@0630 [facility] Last Admin: 10/02/24 05:44 Dose: 40 mg Sodium Chloride (0.9 % Sodium Chloride Flush 3 Ml Syringe) 3 ml IVFLUSH QSHIFT [facility] Last Admin: 10/02/24 12:10 Dose: Not Given Zolpidem Tartrate (Zolpidem Tartrate 5 Mg Tablet) 10 mg PO BEDTIME [facility] Last Admin: 10/01/24 21:08 Dose: 10 mg Home Medications ?Medication ?Instructions ?Recorded ?Confirmed ?Type zolpidem 10 mg tablet (Ambien) 10 mg PO BEDTIME Sleep 06/30/21 10/01/24 History morphine 60 mg tablet,extended 60 mg PO BID 10/01/24 10/01/24 History release Allergies Allergy/AdvReac Type Severity Reaction Status Date / Time shellfish derived (SHELLFISH Allergy Intermediate GI S/E Verified 09/30/24 23:38 DERIVED) pollen extracts (POLLEN) Allergy Mild RUNNY NOSE Verified 09/30/24 23:38 Physical Exam Vital signs: Vital Signs Temp 98.6 F 10/02/24 12:00 Pulse 80 10/02/24 12:00 Resp 20 10/02/24 12:00 BP 161/81 H 10/02/24 12:00 Pulse Ox 94 10/02/24 12:00 O2 Del Method Room Air 10/02/24 12:00 Intake & Output 10/01/24 10/02/24 10/02/24 18:59 06:59 18:59 Intake Total 100 / 4074.517 4588.333 / 5383.997 4935.333 / 1117.333 Output Total 200 / 450 250 / 450 Balance -100 / 679.333 779.333 / 633.425 0687.333 / 1117.333 Urine Output (Average ml/kg/hr) 0.22 0.26 0.26 Intake: Intake, IV Amount 100 / 6747.318 0224.333 / 2682.553 1044.333 / 1117.333 metroNIDAZOLE/NS 500 mg In 100 100 / 200 100 / 200 200 / 200 ml @ 100 mls/hr IV Q8H MARCO Rx#: [id number] 0.9 % Sodium Chloride 1,000 ml 929.333 / 929.333 917.333 / 917.333 @ 80 mls/hr IVCONT .[id number] MARCO Rx#:[id number] Output: Output, Urine Amount 200 / 450 250 / 450 Other: Urine purewick Urine Color Clari Last Bowel Movement 10/02/24 Weight 79.7 kg Weight 79.7 kg - Constitutional Present: no acute distress, average body habitus - Routine HEENT Exam Head: Present: normal inspection Eye: Present: EOMI, PERRL. Absent: scleral icterus - Routine Neck Exam Present: supple. Absent: lymphadenopathy - Routine Respiratory Exam Present: CTAB. Absent: accessory muscle use, wheezes - Routine Cardiovascular Exam Cardiovascular: Present: RRR, S1, S2 - Routine Abdominal Exam Present: soft. Absent: mass - Routine Extremities Exam Present: pulses intact - Routine Skin Exam Present: intact - Routine Neurological Exam Present: alert, oriented X3. Absent: motor deficit - Routine Psychiatric Exam Present: cooperative Hem/Onc Consult Result - Labs CBC & Chem 7: 10/02/24 06:02 10/02/24 06:02 Labs: Short CBC 10/02/24 10/02/24 10/02/24 Range/Units 06:02 06:02 06:02 WBC 15.6 H 15.2 H (4.8-10.8) X10*3/uL Hgb 13.9 L 14.0 (14.0-18.0) g/dl Hct 41.1 L (42.0-52.0) % Plt Count (160-400) X10*3/uL 10/02/24 10/02/24 Range/Units 06:02 06:02 WBC (4.8-10.8) X10*3/uL Hgb (14.0-18.0) g/dl Hct 41.7 L (42.0-52.0) % Plt Count 396 396 (160-400) X10*3/uL BMP 10/02/24 06:02 Sodium 142 Potassium 3.5 Chloride 106 Carbon Dioxide 25 BUN 20 H Creatinine 0.93 Calcium 8.6 D Liver Function 10/02/24 Range/Units 06:02 Total Bilirubin 0.8 (0.0-1.0) mg/dL AST 22 (5-37) U/L ALT 9 (0-40) U/L Alkaline Phosphatase 53 (39-117) U/L Albumin 3.9 (3.5-5.0) g/dL Assessment and Plan Patient Active problem list reviewed?: Yes (1) Mass of pancreas Status: Acute Assessment and plan: This is a 78-year-old male with past medical history significant for prostate cancer, family history of breast and prostate cancer who is presenting with abdominal discomfort and found to have cystic lesion in the body of the pancreas measuring 2.[address] abdomen/pelvis with contrast shows in addition to lesion in the body of pancreas, calcified splenic granuloma, few small renal stones and wall thickening of distal ileum with adjacent mesenteric edema/fat stranding consistent with ileitis. There is no acute diverticulitis. For pancreatic neoplasm, the diagnosis was probable intraductal papillary mucinous neoplasm. Blood work shows normal liver enzymes and bilirubin, CEA level was normal at 3.40 but CA 19 9 was elevated at 613 U/mL. Because of elevation of CA 19 9 and size of IPMN, further imaging with MRI and MRCP has been recommended after discussion with small business sales representative, Dr. Gorman. Because of leukocytosis with finding of abdominal pain, slight diarrhea and finding of ileitis on CT scan, patient was started on ceftriaxone. He did not have any fever or chills. I explained above findings with the patient and he is willing to proceed with above investigations. Depending on MR findings, he may need further evaluation with EUS and biopsy which can be scheduled as outpatient. Thank you for consultation, will follow with you. - Time Spent With Patient Time Spent with Patient (in minutes): 25 Additional Coding: - Additional E/M codes Complex E/M visit Add On: CPT G2211
--- NOTE | 2024-10-02 19:02 | HO.PM.IMPN ---
Subjective Subjective Date of Service: 10/03/24 Interval History: Ielitis Review of Systems has some abd pain no nausea or vomitin or diarrhae denies any chest pain or sob Physical Exam Vital Signs: Vital Signs: Last Vital Signs Temp 98.6 F 10/02/24 15:58 Pulse 84 10/02/24 15:58 Resp 17 10/02/24 15:58 BP 138/84 10/02/24 15:58 Pulse Ox 96 10/02/24 15:58 O2 Del Method Room Air 10/02/24 15:58 BMI result Body Mass Index 26.7 Appearance: Alert.? Oriented X3.? cvs: [id number], [id number] . res: clear to auscultation ,no rhonchii or wheezing abd: no rebound or guarding ,mild lower abd pain, bs present. ext pulses present , no cyanosis . neuro: axo3 , nonfocal. Objective Data Active Medications Acetaminophen (Acetaminophen 325 Mg Tablet) 650 mg PO Q6H PRN PRN Reason: Pain, Mild 1-3,fever,headache Albuterol/Ipratropium (Albuterol/Iprat 2.5/0.5mg 3 Ml Ampul.Neb) 3 ml INHALE Q4H PRN PRN Reason: Shortness of Breath/Wheezing Amlodipine Besylate (Amlodipine Besylate 5 Mg Tablet) 5 mg PO DAILY [facility]; Protocol Last Admin: 10/02/24 09:26 Dose: 5 mg Documented By: YURI Calcium Carbonate (Calcium Carbonate 750 Mg Tab.Chew) 750 mg PO Q4H PRN PRN Reason: Heartburn Ceftriaxone Sodium (Ceftriaxone Sodium 1 Gm Vial) 1 gm IVPUSH Q24H [facility] Last Admin: 10/02/24 03:42 Dose: 1 gm Documented By: ZAINA Enoxaparin Sodium (Enoxaparin Sodium 40 Mg/0.4 Ml Syringe) 40 mg SUBCUT Q24H [facility] Last Admin: 10/02/24 05:51 Dose: 40 mg Documented By: ZAINA Hydralazine HCl (Hydralazine Hcl 20 Mg/Ml Vial) 10 mg IVPUSH Q6H PRN; Protocol PRN Reason: SBP > 160 Hydromorphone HCl (Hydromorphone Hcl 0.5 Mg/0.5 Ml Syringe) 0.5 mg IVPUSH Q3H PRN; Protocol PRN Reason: Pain, Moderate(Pain Scale 4-6) Last Admin: 10/02/24 14:19 Dose: 0.5 mg Documented By: YURI Metronidazole (Flagyl) 500 mg in 100 mls @ 100 mls/hr IV Q8H [facility] Last Infusion: 10/02/24 12:34 Dose: Infused Documented By: YURI Sodium Chloride (Ns) 1,000 mls @ 80 mls/hr IVCONT .[id number] [facility] Last Admin: 10/02/24 09:26 Dose: 80 mls/hr Documented By: YURI Magnesium Hydroxide (Milk Of Magnesia 30 Ml Oral.Susp) 30 ml PO DAILY PRN PRN Reason: Constipation Melatonin (Melatonin 3 Mg Tablet) 6 mg PO BEDTIME PRN PRN Reason: Insomnia Ondansetron HCl (Ondansetron Hcl 4 Mg/2 Ml Vial) 4 mg IVPUSH Q6H PRN PRN Reason: Nausea and Vomiting Last Admin: 10/02/24 13:22 Dose: 4 mg Documented By: MECHELLE Pantoprazole Sodium (Pantoprazole Sodium 40 Mg/10 Ml Vial) 40 mg IVPUSH DAILY@0630 [facility] Last Admin: 10/02/24 05:44 Dose: 40 mg Documented By: BUSSIEL Sodium Chloride (0.9 % Sodium Chloride Flush 3 Ml Syringe) 3 ml IVFLUSH QSHIFT [facility] Last Admin: 10/02/24 12:10 Dose: Not Given Documented By: YURI Non-Admin Reason: IV Running Zolpidem Tartrate (Zolpidem Tartrate 5 Mg Tablet) 10 mg PO BEDTIME [facility] Last Admin: 10/01/24 21:08 Dose: 10 mg Documented By: DEPE Labs 10/02/24 06:02 10/02/24 06:02 Labs: Laboratory Results - last 24 hr 10/01/24 10/02/24 10/02/24 10:10 06:02 06:02 MCV 87.1 87.2 MCH 29.4 MCHC RDW Plt Count MPV Immature Gran % (Auto) Neut % (Auto) Lymph % (Auto) Wetzel % (Auto) Eos % (Auto) Baso % (Auto) Lymph # (Auto) Wetzel # (Auto) Eos # (Auto) Baso # (Auto) Abs Immat Gran (auto) Absolute Neuts (auto) Absolute Nucleated RBC Nucleated RBC % (auto) Smear Tech's Comments Anion Gap Estim Creat Clear Calc Estimated GFR Random Glucose Calcium Total Bilirubin AST ALT Alkaline Phosphatase Total Protein Albumin CA 19-9 Antigen 613 H 10/02/24 10/02/24 10/02/24 06:02 06:02 06:02 MCV MCH 29.3 MCHC 33.8 33.6 RDW 13.2 13.4 Plt Count 396 MPV Immature Gran % (Auto) Neut % (Auto) Lymph % (Auto) Wetzel % (Auto) Eos % (Auto) Baso % (Auto) Lymph # (Auto) Wetzel # (Auto) Eos # (Auto) Baso # (Auto) Abs Immat Gran (auto) Absolute Neuts (auto) Absolute Nucleated RBC Nucleated RBC % (auto) Smear Tech's Comments Anion Gap Estim Creat Clear Calc Estimated GFR Random Glucose Calcium Total Bilirubin AST ALT Alkaline Phosphatase Total Protein Albumin CA 19-9 Antigen 10/02/24 10/02/24 10/02/24 06:02 06:02 06:02 MCV MCH MCHC RDW Plt Count 396 MPV 9.9 9.9 Immature Gran % (Auto) 0.5 H 0.7 H Neut % (Auto) 79.0 H Lymph % (Auto) Wetzel % (Auto) Eos % (Auto) Baso % (Auto) Lymph # (Auto) Wetzel # (Auto) Eos # (Auto) Baso # (Auto) Abs Immat Gran (auto) Absolute Neuts (auto) Absolute Nucleated RBC Nucleated RBC % (auto) Smear Tech's Comments Anion Gap Estim Creat Clear Calc Estimated GFR Random Glucose Calcium Total Bilirubin AST ALT Alkaline Phosphatase Total Protein Albumin CA 19-9 Antigen 10/02/24 10/02/24 10/02/24 06:02 06:02 06:02 MCV MCH MCHC RDW Plt Count MPV Immature Gran % (Auto) Neut % (Auto) 79.0 H Lymph % (Auto) 9.5 L 9.6 L Wetzel % (Auto) 10.9 10.6 Eos % (Auto) 0.0 Baso % (Auto) Lymph # (Auto) Wetzel # (Auto) Eos # (Auto) Baso # (Auto) Abs Immat Gran (auto) Absolute Neuts (auto) Absolute Nucleated RBC Nucleated RBC % (auto) Smear Tech's Comments Anion Gap Estim Creat Clear Calc Estimated GFR Random Glucose Calcium Total Bilirubin AST ALT Alkaline Phosphatase Total Protein Albumin CA 19-9 Antigen 10/02/24 10/02/24 10/02/24 06:02 06:02 06:02 MCV MCH MCHC RDW Plt Count MPV Immature Gran % (Auto) Neut % (Auto) Lymph % (Auto) Wetzel % (Auto) Eos % (Auto) 0.0 Baso % (Auto) 0.1 0.1 Lymph # (Auto) 1.5 1.5 Wetzel # (Auto) 1.7 H Eos # (Auto) Baso # (Auto) Abs Immat Gran (auto) Absolute Neuts (auto) Absolute Nucleated RBC Nucleated RBC % (auto) Smear Tech's Comments Anion Gap Estim Creat Clear Calc Estimated GFR Random Glucose Calcium Total Bilirubin AST ALT Alkaline Phosphatase Total Protein Albumin CA 19-9 Antigen 10/02/24 10/02/24 10/02/24 06:02 06:02 06:02 MCV MCH MCHC RDW Plt Count MPV Immature Gran % (Auto) Neut % (Auto) Lymph % (Auto) Wetzel % (Auto) Eos % (Auto) Baso % (Auto) Lymph # (Auto) Wetzel # (Auto) 1.6 H Eos # (Auto) 0.0 0.0 Baso # (Auto) 0.0 0.0 Abs Immat Gran (auto) 0.08 H Absolute Neuts (auto) Absolute Nucleated RBC Nucleated RBC % (auto) Smear Tech's Comments Anion Gap Estim Creat Clear Calc Estimated GFR Random Glucose Calcium Total Bilirubin AST ALT Alkaline Phosphatase Total Protein Albumin CA 19-9 Antigen 10/02/24 10/02/24 10/02/24 06:02 06:02 06:02 MCV MCH MCHC RDW Plt Count MPV Immature Gran % (Auto) Neut % (Auto) Lymph % (Auto) Wetzel % (Auto) Eos % (Auto) Baso % (Auto) Lymph # (Auto) Wetzel # (Auto) Eos # (Auto) Baso # (Auto) Abs Immat Gran (auto) 0.10 H Absolute Neuts (auto) 12.3 H 12.0 H Absolute Nucleated RBC 0.000 0.000 Nucleated RBC % (auto) 0.0 Smear Tech's Comments Anion Gap Estim Creat Clear Calc Estimated GFR Random Glucose Calcium Total Bilirubin AST ALT Alkaline Phosphatase Total Protein Albumin CA 19-9 Antigen 10/02/24 06:02 MCV MCH MCHC RDW Plt Count MPV Immature Gran % (Auto) Neut % (Auto) Lymph % (Auto) Wetzel % (Auto) Eos % (Auto) Baso % (Auto) Lymph # (Auto) Wetzel # (Auto) Eos # (Auto) Baso # (Auto) Abs Immat Gran (auto) Absolute Neuts (auto) Absolute Nucleated RBC Nucleated RBC % (auto) 0.0 Smear Tech's Comments VERIFIED Anion Gap 15 Estim Creat Clear Calc 61.2 Estimated GFR > 60 Random Glucose 117 H Calcium 8.6 D Total Bilirubin 0.8 AST 22 ALT 9 Alkaline Phosphatase 53 Total Protein 6.2 L Albumin 3.9 CA 19-9 Antigen Microbiology Microbiology Results: Microbiology 10/01/24 04:02 Blood Culture - Preliminary Blood - Venous No growth after 24 hours. 10/01/24 03:55 Blood Culture - Preliminary Blood - Venous No growth after 24 hours. 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 Ileitis continue ceftriaxone and flagyl . stool studies added , gi eval added as well as abd mri Pancreatic cystic lesion, possibly a neoplasm -Lipase WNL has some abd soarness,dilaudid ordered (pt has not had his morphine in 4 days) -GI consulted and Oncology consulted-added abd MRI inpatient due to elevated CEA. HTN : flactuates on Amlodipine po Hydralazine IV prn S/p mechanical fall with current neck pain, BOLDEN (noted pt has chronic BOLDEN's) CT cervical spine and CT Head -negative fx Pt has long hx of chronic BOLDEN's on morphine daily (no morphine in 5 days) L displaced clavicle fracture s/p mechanical fall Sling in place OT if needed Left mildly displaced RIb fracture s/p mechanical fall No evidence of PTX Incentive spirometer , pillow splint to brace chest for coughing Pain management Chronic BOLDEN on morphine daily Currently receiving dilaudid for abd pain with good effect on BOLDEN Pt states he ran out of morphine and did not call for refill, has not had any for 4 days, no s/s of withdrawal Diverticulosis Chronic condition ,No evidence of diverticulitis Avoid foods with seeds Hx of Anxiety and Depression home medications once med rec completed DVT Prophylaxis: Lovoneox . PPI Prophylaxis: Protonix. ongoing need :need workup for ielitis/pancreatic cyst/elevated cea: moniter for abd pain /mri -gi /onco. Quality Stroke Does the patient have a stroke diagnosis?: No Reason for No Anti-thrombotic by Day Two: N/A - Med Ordered VTE Prior VTE?: No VTE Risk Level:: Medical - moderate - high VTE Device Contraindication: N/A - Device Ordered VTE Drug Contraindication: N/A - Med Ordered
[2024-10-02] MEDS: 0.9 % Sodium Chloride Flush 3 ML SYRINGE IVFLUSH (19:52)
[2024-10-03] VITALS (8 sets, daily range): BP systolic 146–184; BP diastolic 76–81; PULSE 62–88; RESP 16–19; TEMP 36.6–37.8; O2SAT 94–96
[2024-10-03] MEDS: metroNIDAZOLE/NS 500 MG/100 ML PIGGYBACK 100 MG IV (03:17)
[2024-10-03] MEDS: 0.9 % Sodium Chloride Flush 3 ML SYRINGE IVFLUSH ×3 (08:53→22:11)
--- NOTE | 2024-10-03 11:15 | HE.PHANOTE ---
METRONIDAZOLE CHANGED FROM IV TO PO. DOSE CONTINUED AT 500 Q 8. NEXT DOSE 1200PM
--- NOTE | 2024-10-03 14:40 | P.CDIM_ITS ---
PROVIDER RESPONSE TEXT: To clarify, the appropriate diagnosis supported by the clinical indicators: Ileitis: ileitis likely infectious QUERY TEXT: PHYSICIAN'S DOCUMENTATION REQUEST Date of Query: 10/03/2024 01:05 PM EDT Patient Name: Pj Greenberg Admit Date: 10/01/2024 Dear Cira Reese MD, A review of the medical record indicates additional documentation may be needed. Please review below and update the documentation accordingly. Clinical Indicators: Progress note 10/02/24 - Ileitis Continue ceftriaxone and flagyl added. Clear diet. GI consult: Imp/Recs: Ileitis - seems that his symptoms are rather acute with some nausea, discomfort, loose stools and anorexia. Diff dx: Infectious enteritis vs. Crohns. Based on the above, could you clarify any further specifics to the documented Ileitis? Ileitis infectious, terminal, toxic, megacolon, regional (ulcerative) drug induced, segmental, irritable bowel syndrome etc. Other specifics Other (explain) Clinically unable to determine (explain) Thank you, Geri Brunner, CCS, CDIS Use of terms such as suspected, likely, concern for, or probable (associated with a specific diagnosis that is being evaluated, monitored, or treated as if it exists) are acceptable and can be coded in the inpatient setting, when documented at the time of discharge. Please use your independent medical judgment in providing your response. THIS QUERY IS PART OF THE PERMANENT MEDICAL RECORD
--- NOTE | 2024-10-03 14:51 | MHC.CM.PN ---
CM met with pt, he had not reviewed list of STR's, CM put out referrals, and will f/u with pt.
--- NOTE | 2024-10-03 16:12 | HO.PM.IMPN ---
Subjective Subjective Date of Service: 10/03/24 Interval History: Ielitis Review of Systems has diarrhae abd pain seems similar. no fever Review of Systems: Yes all other systems are reviewed and are negative Physical Exam Vital Signs: Vital Signs: Last Vital Signs Temp 98.1 F 10/03/24 15:33 Pulse 66 10/03/24 15:33 Resp 19 10/03/24 15:33 BP 147/80 H 10/03/24 15:33 Pulse Ox 94 10/03/24 15:33 O2 Del Method Room Air 10/03/24 15:33 BMI result Body Mass Index 26.7 Appearance: Alert.? Oriented X3.? cvs: [id number], [id number] . res: clear to auscultation ,no rhonchii or wheezing abd: no rebound or guarding ,mild lower abd pain, bs present. ext pulses present , no cyanosis . neuro: axo3 , nonfocal. Objective Data Active Medications Acetaminophen (Acetaminophen 325 Mg Tablet) 650 mg PO Q6H PRN PRN Reason: Pain, Mild 1-3,fever,headache Last Admin: 10/03/24 03:17 Dose: 650 mg Documented By: AP Albuterol/Ipratropium (Albuterol/Iprat 2.5/0.5mg 3 Ml Ampul.Neb) 3 ml INHALE Q4H PRN PRN Reason: Shortness of Breath/Wheezing Amlodipine Besylate (Amlodipine Besylate 5 Mg Tablet) 5 mg PO DAILY [facility]; Protocol Last Admin: 10/03/24 08:53 Dose: 5 mg Documented By: DAYO Calcium Carbonate (Calcium Carbonate 750 Mg Tab.Chew) 750 mg PO Q4H PRN PRN Reason: Heartburn Ceftriaxone Sodium (Ceftriaxone Sodium 1 Gm Vial) 1 gm IVPUSH Q24H [facility] On Hold: 10/03/24 12:48 Last Admin: 10/03/24 03:17 Dose: 1 gm Documented By: AP Enoxaparin Sodium (Enoxaparin Sodium 40 Mg/0.4 Ml Syringe) 40 mg SUBCUT Q24H [facility] Last Admin: 10/03/24 05:33 Dose: 40 mg Documented By: AP Hydralazine HCl (Hydralazine Hcl 20 Mg/Ml Vial) 10 mg IVPUSH Q6H PRN; Protocol PRN Reason: SBP > 160 Last Admin: 10/02/24 23:28 Dose: 10 mg Documented By: AP Hydromorphone HCl (Hydromorphone Hcl 0.5 Mg/0.5 Ml Syringe) 0.5 mg IVPUSH Q3H PRN; Protocol PRN Reason: Pain, Moderate(Pain Scale 4-6) Last Admin: 10/03/24 14:11 Dose: 0.5 mg Documented By: DAYO Magnesium Hydroxide (Milk Of Magnesia 30 Ml Oral.Susp) 30 ml PO DAILY PRN PRN Reason: Constipation Melatonin (Melatonin 3 Mg Tablet) 6 mg PO BEDTIME PRN PRN Reason: Insomnia Metronidazole (Metronidazole 500 Mg Tablet) 500 mg PO Q8H [facility] On Hold: 10/03/24 12:48 Last Admin: 10/03/24 11:33 Dose: 500 mg Documented By: DAYO Ondansetron HCl (Ondansetron Hcl 4 Mg/2 Ml Vial) 4 mg IVPUSH Q6H PRN PRN Reason: Nausea and Vomiting Last Admin: 10/02/24 13:22 Dose: 4 mg Documented By: MECHELLE Pantoprazole Sodium (Pantoprazole Sodium 40 Mg/10 Ml Vial) 40 mg IVPUSH DAILY@0630 [facility] Last Admin: 10/03/24 05:34 Dose: 40 mg Documented By: AP Sodium Chloride (0.9 % Sodium Chloride Flush 3 Ml Syringe) 3 ml IVFLUSH QSHIFT [facility] Last Admin: 10/03/24 14:11 Dose: 3 ml Documented By: DAYO Zolpidem Tartrate (Zolpidem Tartrate 5 Mg Tablet) 10 mg PO BEDTIME [facility] Last Admin: 10/02/24 22:12 Dose: 10 mg Documented By: AP Labs 10/02/24 06:02 10/02/24 06:02 Microbiology Microbiology Results: Microbiology 10/01/24 04:02 Blood Culture - Preliminary Blood - Venous No growth after 48 hours. 10/01/24 03:55 Blood Culture - Preliminary Blood - Venous No growth after 48 hours. 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 Ileitis has diarrhae, will check stool studies hold ceftriaxone and flagyl . d/w GI-hold antibiotics (might be contributing to diarrhae), clear liquid diet. Pancreatic cystic lesion, possibly a neoplasm Lipase WNL has some abd soarness,dilaudid ordered (pt has not had his morphine in 4 days) GI consulted and Oncology consulted-added abd MRI reviewed , due to elevated CEA. HTN : flactuates on Amlodipine po Hydralazine IV prn S/p mechanical fall with current neck pain, BOLDEN (noted pt has chronic BOLDEN's) CT cervical spine and CT Head -negative fx Pt has long hx of chronic BOLDEN's on morphine daily (no morphine in 5 days) L displaced clavicle fracture s/p mechanical fall Sling in place OT if needed Left mildly displaced RIb fracture s/p mechanical fall No evidence of PTX Incentive spirometer , pillow splint to brace chest for coughing Pain management Chronic BOLDEN on morphine daily Currently receiving dilaudid for abd pain with good effect on BOLDEN Pt states he ran out of morphine and did not call for refill, has not had any for 4 days, no s/s of withdrawal Diverticulosis Chronic condition ,No evidence of diverticulitis Avoid foods with seeds Hx of Anxiety and Depression home medications once med rec completed DVT Prophylaxis: Lovoneox . PPI Prophylaxis: Protonix. ongoing need :need workup for ielitis/pancreatic cyst/elevated cea: moniter for abd pain /mri -gi /onco. Quality Stroke Does the patient have a stroke diagnosis?: No Reason for No Anti-thrombotic by Day Two: N/A - Med Ordered VTE Prior VTE?: No VTE Risk Level:: Medical - moderate - high VTE Device Contraindication: N/A - Device Ordered VTE Drug Contraindication: N/A - Med Ordered
[2024-10-03 23:18] LABS: CDiff Gene PCR NEGATIVE (Negative)
[2024-10-04] VITALS (8 sets, daily range): BP systolic 133–180; BP diastolic 36–86; PULSE 59–85; RESP 16–18; TEMP 36.7–38.2; O2SAT 94–96
[2024-10-04] MEDS: 0.9 % Sodium Chloride Flush 3 ML SYRINGE IVFLUSH ×2 (08:12→23:48)
[2024-10-04 10:48] LABS: Hematocrit 42.3 % (42.0-52.0); Hemoglobin 14.5 g/dl (14.0-18.0); Mean Corpuscular HGB Conc 34.3 g/dl (31.0-36.0); Mean Corpuscular Hemoglobin 29.7 pg (27.0-33.0); Mean Corpuscular Volume 86.7 fL (80.0-98.0); NRBC Abs Auto 0.000 X10*3/uL (0.0-0.012); NRBC Pct Auto 0.0 /100WBC (0.0-0.2); Platelet Count 434 X10*3/uL (160-400); Red Blood Count 4.88 X10*6/uL (4.60-5.80); White Blood Count 12.8 X10*3/uL (4.8-10.8)
[2024-10-04 10:58] LABS: E. coli EAEC Not Detected (Not Detect.); E. coli EPEC Not Detected (Not Detect.); E. coli ETEC Not Detected (Not Detect.); E. coli STEC Not Detected (Not Detect.); Shigella sp./EIEC Not Detected (Not Detect.)
[2024-10-04 11:03] LABS: Blood Urea Nitrogen 17 mg/dL (9-16); Calcium 8.1 mg/dL (8.4-10.2); Creatinine Clr Calc Pharmacy 64.7; Estimated Glomerular Filt Rate > 60
[2024-10-04 11:16] LABS: Anion Gap 13 (12-20); Carbon Dioxide 26 mmol/L (22-29); Chloride 104 mmol/L (96-108); Potassium 2.6 mmol/L (3.3-5.1); Sodium 140 mmol/L (135-145)
[2024-10-04] MEDS: Potassium Chloride/H20 10 MEQ/100 ML PIGGYBACK 100 MEQ IV ×4 (11:39→15:38)
[2024-10-04] MEDS: Potassium Chloride ER 20 MEQ TAB.ER.PRT 40 MEQ PO (11:39)
[2024-10-04 12:07] LABS: Magnesium 2.2 mg/dL (1.6-2.6)
--- NOTE | 2024-10-04 17:08 | PM.GIPN ---
Subjective Subjective Date of Service: 10/04/24 Interval History: He reports that he is feeling better overall. Still with some loose stools and cramps, but overall much better than previously. Abdominal discomfort is reportedly minimal at this point. Critical Care Time (minutes): 0 Physical Exam Vital Signs: Vital Signs: Last Vital Signs Temp 98.4 F 10/04/24 16:00 Pulse 74 10/04/24 16:00 Resp 18 10/04/24 16:00 BP 160/76 H 10/04/24 16:00 Pulse Ox 96 10/04/24 16:00 O2 Del Method Room Air 10/04/24 16:00 BMI result Body Mass Index 26.7 Const: General: cooperative, healthy appearing, comfortable, no acute distress, well developed, alert and awake GI: Other: Abd-soft, nondistended, NT, no mass/rebound/guarding Objective Data Labs 10/04/24 09:58 10/04/24 09:58 Labs: Laboratory Results - last 24 hr 10/03/24 10/03/24 10/04/24 21:47 22:07 09:58 WBC 12.8 H RBC 4.88 Hgb 14.5 Hct 42.3 MCV 86.7 MCH 29.7 MCHC 34.3 RDW 13.4 Plt Count 434 H MPV 10.4 Absolute Nucleated RBC 0.000 Nucleated RBC % (auto) 0.0 Sodium 140 Potassium 2.6 L* D Chloride 104 Carbon Dioxide 26 Anion Gap 13 BUN 17 H Creatinine 0.88 Estim Creat Clear Calc 64.7 Estimated GFR > 60 Random Glucose 153 H Calcium 8.1 L Magnesium 2.2 Stl C. cayetanensis PCR Not Detected Stool Rotavirus A PCR Not Detected Stl Adenov F 40/41 PCR Not Detected Stool Astrovirus (PCR) Not Detected Stool Campylobacter PCR Not Detected Stool Cryptosporidium PCR Not Detected Stl Sh Tox Pr E STEC PCR Not Detected Stool E coli O157 PCR Not applicable Stl Enterotoxigenic E PCR Not Detected Stool EPEC (PCR) Not Detected Stool EAEC (PCR) Not Detected Stl E. histolytica PCR Not Detected Stool Giardia Lamblia PCR Not Detected Stl P. shigelloides PCR Not Detected Stool Salmonella PCR Not Detected Stool Sapovirus (PCR) Not Detected Stl Shigella/EIEC PCR Not Detected St Y.enterocolitica PCR Not Detected Stool Vibrio (PCR) Not Detected Stl Vibrio cholerae PCR Not Detected Stl Norovirus GI/GII PCR Not Detected C. difficile Tox B Gene NEGATIVE Microbiology Microbiology Results: Microbiology 10/01/24 04:02 Blood - Venous Blood Culture - Preliminary No growth after 48 hours. 10/01/24 03:55 Blood - Venous Blood Culture - Preliminary No growth after 48 hours. Procedures Date of Service Date of Service: 10/04/24 Progress Note: A&P Assessment and plan (1) Pancreatic cyst: Status: Acute Assessment and Plan: Imp/Recs: While the pancreas cyst appears benign on imaging studies, the marked elevation of the CA 19-9 is obviously worrisome. I advised him that I will plan to set up an outpatient EUS at [facility] for aspiration and/or biopsy of the lesion so as to attempt to make a definitive diagnosis. He understood and was comfortable with this plan. (2) Diarrhea: Status: Acute (3) Abnormal CT scan, gastrointestinal tract: Status: Acute Assessment and Plan: Imp/Recs: I still suspect this is a resolving gastroenteritis, despite the negative stool specimens, given what he describes as a relatively new onset of symptoms and the associated leukocytosis on admission which is now improving. I would recommend advancing to a bland and lactose-free diet, using Imodium as needed, and observation. I did advise him that if things worsen in regard to the diarrhea and abdominal pain we can always proceed with a colonoscopy to R/O other possibilities such as Crohn's disease. He understood and was comfortable with this plan. Time Spent With Patient Time: Total time managing care of this patient today ____ minutes. Quality Stroke Does the patient have a stroke diagnosis?: No Reason for No Anti-thrombotic by Day Two: N/A - Med Ordered VTE Prior VTE?: No VTE Risk Level:: Medical - moderate - high VTE Device Contraindication: N/A - Device Ordered VTE Drug Contraindication: N/A - Med Ordered
[2024-10-04 17:43] LABS: Potassium 3.4 mmol/L (3.3-5.1)
--- NOTE | 2024-10-04 18:14 | P.PNIM_ITS ---
Subjective Subjective Date of Service: 10/04/24 Interval History: Ielitis Review of Systems diarrhae /abd pain somewhat improving arm pain still bothering Review of Systems: Yes all other systems are reviewed and are negative Physical Exam 2 Vital Signs: Vital Signs: Last Vital Signs Temp 98.4 F 10/04/24 16:00 Pulse 74 10/04/24 16:00 Resp 18 10/04/24 16:00 BP 160/76 H 10/04/24 16:00 Pulse Ox 96 10/04/24 16:00 O2 Del Method Room Air 10/04/24 16:00 BMI result Body Mass Index 26.7 Appearance: Alert.? Oriented X3.? cvs: rrr, [id number] . res: clear to auscultation ,no rhonchii or wheezing abd: no rebound or guarding ,mild lower abd pain, bs present. ext pulses present , no cyanosis . neuro: axo3 , nonfocal. Objective Data Active Medications Acetaminophen (Acetaminophen 325 Mg Tablet) 975 mg PO Q6H PRN PRN Reason: Pain, Mild 1-3,fever,headache Albuterol/Ipratropium (Albuterol/Iprat 2.5/0.5mg 3 Ml Ampul.Neb) 3 ml INHALE Q4H PRN PRN Reason: Shortness of Breath/Wheezing Amlodipine Besylate (Amlodipine Besylate 5 Mg Tablet) 5 mg PO DAILY [facility]; Protocol Last Admin: 10/04/24 08:12 Dose: 5 mg Documented By: JESSA Calcium Carbonate (Calcium Carbonate 750 Mg Tab.Chew) 750 mg PO Q4H PRN PRN Reason: Heartburn Enoxaparin Sodium (Enoxaparin Sodium 40 Mg/0.4 Ml Syringe) 40 mg SUBCUT Q24H [facility] Last Admin: 10/04/24 06:14 Dose: 40 mg Documented By: AP Hydralazine HCl (Hydralazine Hcl 20 Mg/Ml Vial) 10 mg IVPUSH Q6H PRN; Protocol PRN Reason: SBP > 160 Last Admin: 10/04/24 03:02 Dose: 10 mg Documented By: AP Hydromorphone HCl (Hydromorphone Hcl 0.5 Mg/0.5 Ml Syringe) 1 mg IVPUSH Q3H PRN; Protocol PRN Reason: Pain, Moderate(Pain Scale 4-6) Loperamide HCl (Loperamide Hcl 2 Mg Capsule) 2 mg PO Q6H PRN PRN Reason: Diarrhea Magnesium Hydroxide (Milk Of Magnesia 30 Ml Oral.Susp) 30 ml PO DAILY PRN PRN Reason: Constipation Melatonin (Melatonin 3 Mg Tablet) 6 mg PO BEDTIME PRN PRN Reason: Insomnia Ondansetron HCl (Ondansetron Hcl 4 Mg/2 Ml Vial) 4 mg IVPUSH Q6H PRN PRN Reason: Nausea and Vomiting Last Admin: 10/04/24 08:12 Dose: 4 mg Documented By: JESSA Sodium Chloride (0.9 % Sodium Chloride Flush 3 Ml Syringe) [facility] Last Admin: 10/04/24 15:43 Dose: Not Given Documented By: JESSA Non-Admin Reason: IV Running Zolpidem Tartrate (Zolpidem Tartrate 5 Mg Tablet) 10 mg PO BEDTIME [facility] Last Admin: 10/03/24 22:08 Dose: 10 mg Documented By: AP Labs 10/04/24 09:58 10/04/24 17:20 Labs: Laboratory Results - last 24 hr 10/03/24 10/03/24 10/04/24 21:47 22:07 09:58 MCV 86.7 MCH 29.7 MCHC 34.3 RDW 13.4 Plt Count 434 H MPV 10.4 Absolute Nucleated RBC 0.000 Nucleated RBC % (auto) 0.0 Anion Gap 13 Estim Creat Clear Calc 64.7 Estimated GFR > 60 Random Glucose 153 H Calcium 8.1 L Magnesium 2.2 Stl C. cayetanensis PCR Not Detected Stool Rotavirus A PCR Not Detected Stl Adenov F 40/41 PCR Not Detected Stool Astrovirus (PCR) Not Detected Stool Campylobacter PCR Not Detected Stool Cryptosporidium PCR Not Detected Stl Sh Tox Pr E STEC PCR Not Detected Stool E coli O157 PCR Not applicable Stl Enterotoxigenic E PCR Not Detected Stool EPEC (PCR) Not Detected Stool EAEC (PCR) Not Detected Stl E. histolytica PCR Not Detected Stool Giardia Lamblia PCR Not Detected Stl P. shigelloides PCR Not Detected Stool Salmonella PCR Not Detected Stool Sapovirus (PCR) Not Detected Stl Shigella/EIEC PCR Not Detected St Y.enterocolitica PCR Not Detected Stool Vibrio (PCR) Not Detected Stl Vibrio cholerae PCR Not Detected Stl Norovirus GI/GII PCR Not Detected C. 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 Ileitis has diarrhae, will check stool studies hold ceftriaxone and flagyl . d/w GI-hold antibiotics (might be contributing to diarrhae), advance diet Pancreatic cystic lesion, possibly a neoplasm Lipase WNL has some abd soarness,dilaudid ordered (pt has not had his morphine in 4 days) GI consulted and Oncology consulted-added abd MRI reviewed , due to elevated CEA. HTN : flactuates on Amlodipine po Hydralazine IV prn acute hypokalmia: added po and iv repleted and resolved. S/p mechanical fall with current neck pain, BOLDEN (noted pt has chronic BOLDEN's) CT cervical spine and CT Head -negative fx Pt has long hx of chronic BOLDEN's on morphine daily (no morphine in 5 days) L displaced clavicle fracture s/p mechanical fall Sling in place OT if needed Left mildly displaced RIb fracture s/p mechanical fall No evidence of PTX Incentive spirometer , pillow splint to brace chest for coughing Pain management -adjusted pain meds dilaudid /tylenol Chronic BOLDEN on morphine daily Currently receiving dilaudid for abd pain with good effect on BOLDEN Pt states he ran out of morphine and did not call for refill, has not had any for 4 days, no s/s of withdrawal Diverticulosis Chronic condition ,No evidence of diverticulitis Avoid foods with seeds Hx of Anxiety and Depression home medications once med rec completed DVT Prophylaxis: Lovoneox . PPI Prophylaxis: Protonix. ongoing need :need workup for ielitis/pancreatic cyst/elevated cea: diarrhae /armpain-pain control d/w patient Quality Stroke Does the patient have a stroke diagnosis?: No Reason for No Anti-thrombotic by Day Two: N/A - Med Ordered VTE Prior VTE?: No VTE Risk Level:: Medical - moderate - high VTE Device Contraindication: N/A - Device Ordered VTE Drug Contraindication: N/A - Med Ordered
[2024-10-05] VITALS (9 sets, daily range): BP systolic 103–176; BP diastolic 52–86; PULSE 66–78; RESP 16–18; TEMP 36.6–37.1; O2SAT 94–97
--- NOTE | 2024-10-05 | ECG_ITS ---
Test Reason : Arrythmia Blood Pressure : */* mmHG Vent. Rate : 74 BPM Atrial Rate : 74 BPM P-R Int : 132 ms QRS Dur : 82 ms QT Int : 454 ms P-R-T Axes : 45 -9 23 degrees QTcB Int : 503 ms Sinus rhythm with Premature atrial complexes Septal infarct , age undetermined Prolonged QT Abnormal ECG When compared with ECG of 01-Oct-2024 00:18, QT has lengthened Referred By: Cira Reese Electronically Signed By: Jeff English
--- NOTE | 2024-10-05 07:00 | CA_ITS ---
Transthoracic Echocardiogram Patient (Last, First, Middle): Pj Greenberg, Gender: Male Date of : 1945 Age: 78 Procedure Date: 10/05/2024 Procedure Type: Transthoracic Echocardiogram [place] [facility] [place] Height: 172. cm Weight: 79.38 kg BSA: 1.93 m2 Heart Rate: 51 bpm BP: 142 / 65 mmHg Chairlift Operator: BHAVYA Referring MD: Cira Reese MD Symptoms: 40 beat nsvt Study Quality: Fair ECG Rhythm: Frequent atrial premature beats Conclusions: - Normal left ventricular size, thickness, systolic function, and wall motion. The visually estimated ejection fraction is between 65-70%. - Normal right ventricular cavity size and systolic function. Findings Left Ventricle Normal left ventricular size, thickness, systolic function, and wall motion. The visually estimated ejection fraction is between 65-70%. Abnormal diastolic function is noted. Spectral Doppler is indicative of a pseudonormal filling pattern. E/E prime ratio is between 8 and 15 consistent with indeterminate filling pressures. Right Ventricle Normal right ventricular cavity size and systolic function. Atria The left atrium is mildly dilated. The right atrium is normal in size. Aortic Valve Normal aortic valve structure and function. There is no aortic valve stenosis. There is no aortic valve regurgitation. Mitral Valve The mitral valve appears normal. There is no mitral valve regurgitation. There is no mitral valve stenosis. Pulmonic Valve The pulmonic valve is likely normal. Tricuspid Valve Normal tricuspid valve structure. There is no tricuspid valve regurgitation. Normal right atrial pressure. There is no evidence of pulmonary hypertension. Great Vessels All visible segments of the aorta are normal in size. The visualized portions of the pulmonary artery and branches are normal. Venous The inferior vena cava is normal in size and collapses greater than 50% with inspiration. Pericardium/Pleural Prominent epicardial adipose tissue noted. There is no evidence of pericardial effusion. Prior Study Comparison No prior study available for comparison. Measurements 2D Linear Measurements IVSd: 0.91 0.6-0.9/0.6-1.0 cm LVIDd: 4.56 3.9-5.3/4.2-5.9 cm LVIDd Index: 2.36 2.4-3.2/2.2-3.1 cm/m2 LVIDs: 2.42 2.0-3.6 cm LVPWd: 1.07 0.7-1.1 cm LA Diam: 3.70 2.7-3.8/3.0-4.0 cm LAIDs Index: 1.92 1.5-2.3 cm/m2 LV Mass: 192.57 67-162/88-224 g LV Mass Index: 99.78 43-95/49-115 g/m2 LVOT Diam: 2.10 3.0+(-)1.3 cm 2D Systolic Function EF 4C: 63.80 >55% EF 2C: 68.30 >55% EF BiP: 65.80 >55% Mitral Valve MV Pk E: 0.67 MV PK A: 0.64 MV Decel Time: 236.00 E/A: 1.10 E'Lateral: 8.27 E'Medial: 5.33 E/E' Med: 12.60 E/E' Lat: 8.10 PHT: 69.00 MVA PHT: 3.19 Decel Hunt: 2.85 Aortic Valve AoV Pk Rober: 1.49 AoV Mn Rober: 1.02 AoV VTI: 0.34 AoV Pk Grad: 9.00 Aov Mn Grad: 5.00 XAVIER Cont.VTI: 2.06 LVOT LVOT Pk Rober: 0.81 LVOT Mn Rober: 0.61 LVOT VTI: 0.20 LVOT Pk Grad: 3.00 LVOT Mn Grad: 2.00 LVOT Diam: 2.10 LVOT Area: 3.46 Diastolic Function MV Pk E: 0.67 MV Pk A: 0.64 E/A: 1.10 E'Medial: 5.33 E/E' Med: 12.60 E' Laterial: 8.27 E/E' Lat: 8.10 Right Ventricle TAPSE (mm): 23.50 TVS' Rober: 8.59 Tricuspid Valve TR Pk Rober: 1.91 TR Pk Grad: 15.00 RA Press: 3.00 RVSP: 18.00 Great Vessels Aorta Sinus of Valsalva: 3.50 2.0-3.5 cm Ao Asc: 3.60 2.1-3.4 cm Ao Arch: 3.00 Pulmonary Valve PV Pk Rober: 0.71 Peak PV Grad: 2.00 Updated in Other Vendor System with Status of Final Jeff English MD electronically signed on 10/07/2024 3:28:04 PM with status of Final
[2024-10-05 07:17] LABS: Anion Gap 9 (12-20); Blood Urea Nitrogen 17 mg/dL (9-16); Calcium 7.8 mg/dL (8.4-10.2); Carbon Dioxide 26 mmol/L (22-29); Chloride 107 mmol/L (96-108); Creatinine Clr Calc Pharmacy 73.0; Estimated Glomerular Filt Rate > 60; Potassium 3.1 mmol/L (3.3-5.1); Sodium 139 mmol/L (135-145)
[2024-10-05 07:42] LABS: Magnesium 2.1 mg/dL (1.6-2.6)
[2024-10-05] MEDS: Potassium Chloride ER 20 MEQ TAB.ER.PRT 40 MEQ PO (08:01)
[2024-10-05] MEDS: 0.9 % Sodium Chloride Flush 3 ML SYRINGE IVFLUSH ×3 (08:04→21:49)
--- NOTE | 2024-10-05 14:11 | PM.CNCAR ---
History of Present Illness History of Present Illness Date of Service: 10/05/24 Requesting physician: Cira Reese Chief complaint: NSVT Narrative: 78-year-old gentleman with pancreatic cysts as well as ileitis who has been getting diarrhea and has electrolyte issues including hypokalemia. He has been noticed to have nonsustained VT on telemetry. He is denying any palpitations. No chest discomfort or shortness of breath. He tripped and platelets arm and had a fracture. He has never had syncope previously. [facility] Past Medical History Medical History Carotid stenosis, bilateral Depression Urolithiasis PSVT (paroxysmal supraventricular tachycardia) IBS (irritable bowel syndrome) Hypogonadism in male History of prostate cancer History of colon polyps Diverticulosis of colon Carpal tunnel syndrome Chronic headache Chronic cough Allergic rhinitis Migraine Anxiety Hypertension Family History Family History Brother Diabetes Prostate cancer Mother Congestive heart failure Surgical History Surgical History H/O repair of right rotator cuff Hx of cataract surgery History of carpal tunnel release Social History Social History (Updated 10/01/24 @ 06:17 by [facility] Rm) Household Members: None Housing: House Do you presently have visiting nurse or other home services: No Alcohol intake: current Alcohol intake frequency: does not drink Patient Tobacco Use Status: Never used Tobacco service: No Current occupational status: retired 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 [employer] Current occupational exposures/hazards: No Travel History Ebola Risk: Travel/Contact With Anyone From Affected Area/s: No Has Patient Experienced Ebola Symptoms: No Meds Allergies Allergy/AdvReac Type Severity Reaction Status Date / Time shellfish derived (SHELLFISH Allergy Intermediate GI S/E Verified 09/30/24 23:38 DERIVED) pollen extracts (POLLEN) Allergy Mild RUNNY NOSE Verified 09/30/24 23:38 Active Medications: Current Medications Acetaminophen (Acetaminophen 325 Mg Tablet) 975 mg PO Q6H PRN PRN Reason: Pain, Mild 1-3,fever,headache Albuterol/Ipratropium (Albuterol/Iprat 2.5/0.5mg 3 Ml Ampul.Neb) 3 ml INHALE Q4H PRN PRN Reason: Shortness of Breath/Wheezing Amlodipine Besylate (Amlodipine Besylate 5 Mg Tablet) 5 mg PO DAILY [facility]; Protocol Last Admin: 10/05/24 08:00 Dose: 5 mg Calcium Carbonate (Calcium Carbonate 750 Mg Tab.Chew) 750 mg PO Q4H PRN PRN Reason: Heartburn Last Admin: 10/05/24 03:11 Dose: 750 mg Enoxaparin Sodium (Enoxaparin Sodium 40 Mg/0.4 Ml Syringe) 40 mg SUBCUT Q24H [facility] Last Admin: 10/05/24 06:28 Dose: 40 mg Hydralazine HCl (Hydralazine Hcl 20 Mg/Ml Vial) 10 mg IVPUSH Q6H PRN; Protocol PRN Reason: SBP > 160 Last Admin: 10/04/24 03:02 Dose: 10 mg Hydromorphone HCl (Hydromorphone Hcl 0.5 Mg/0.5 Ml Syringe) 1 mg IVPUSH Q3H PRN; Protocol PRN Reason: Pain, Moderate(Pain Scale 4-6) Last Admin: 10/05/24 12:35 Dose: 1 mg Loperamide HCl (Loperamide Hcl 2 Mg Capsule) 2 mg PO Q6H PRN PRN Reason: Diarrhea Last Admin: 10/05/24 12:35 Dose: 2 mg Magnesium Hydroxide (Milk Of Magnesia 30 Ml Oral.Susp) 30 ml PO DAILY PRN PRN Reason: Constipation Melatonin (Melatonin 3 Mg Tablet) 6 mg PO BEDTIME PRN PRN Reason: Insomnia Metoprolol Tartrate (Metoprolol Tartrate 25 Mg Tablet) 25 mg PO BID [facility]; Protocol Last Admin: 10/05/24 08:00 Dose: 25 mg Ondansetron HCl (Ondansetron Hcl 4 Mg/2 Ml Vial) 4 mg IVPUSH Q6H PRN PRN Reason: Nausea and Vomiting Last Admin: 10/04/24 23:16 Dose: 4 mg Sodium Chloride (0.9 % Sodium Chloride Flush 3 Ml Syringe) 3 ml IVFLUSH QSHIFT [facility] Last Admin: 10/05/24 08:04 Dose: 3 ml Zolpidem Tartrate (Zolpidem Tartrate 5 Mg Tablet) 10 mg PO BEDTIME [facility] Last Admin: 10/04/24 23:49 Dose: 10 mg Home Medications ?Medication ?Instructions ?Recorded ?Confirmed ?Last Taken ?Type zolpidem 10 mg tablet (Ambien) 10 mg PO BEDTIME Sleep 06/30/21 10/01/24 2 Days Ago History ~09/29/24 morphine 60 mg tablet,extended 60 mg PO BID 10/01/24 10/01/24 2 Days Ago History release ~09/29/24 Physical Exam Vital Signs: Vital Signs: Last Vital Signs Temp 98.5 F 10/05/24 12:00 Pulse 67 10/05/24 12:00 Resp 18 10/05/24 12:00 BP 103/52 L 10/05/24 12:00 Pulse Ox 96 10/05/24 12:00 O2 Del Method Room Air 10/05/24 12:00 BMI result Body Mass Index 26.7 GENERAL APPEARANCE: in no acute distress, left arm is in sling. NECK: no carotid bruit, no jugular venous distention. SKIN: no suspicious lesions, warm and dry. HEART: no murmurs, regular rate and rhythm. LUNGS: clear to auscultation bilaterally. ABDOMEN: soft, nontender. EXTREMITIES: no edema. PERIPHERAL PULSES: equal. NEUROLOGIC: No gross deficits, AAO X 3 Objective Labs and Meds 10/04/24 09:58 10/05/24 18:21 Lab results: Laboratory Results - last 24 hr 10/04/24 10/05/24 17:20 06:26 Sodium 139 Potassium 3.4 D 3.1 L Chloride 107 Carbon Dioxide 26 Anion Gap 9 L BUN 17 H Creatinine 0.78 Estim Creat Clear Calc 73.0 Estimated GFR > 60 Random Glucose 91 Calcium 7.8 L Magnesium 2.1 Assessment and Plan (1) NSVT (nonsustained ventricular tachycardia): Status: Acute Plan Nonsustained VT in NAD year old gentleman with significant electrolytes imbalances due to diarrhea. Replete potassium and magnesium and monitor closely. Low-dose beta-blockers. We will follow along with you. Thank you for allowing me to participate in the care of your patient. Please feel free to contact me if you have any questions. Procedures Date of Service Date of Service: 10/05/24
--- NOTE | 2024-10-05 15:13 | MHC.CM.PN ---
Per rounds, pt. ready to DC to STR soon. CM met with pt. to discuss STR options, he chose [facility] [place], auth pending.
--- NOTE | 2024-10-05 15:51 | P.PNIM_ITS ---
Subjective Subjective Date of Service: 10/05/24 Interval History: abd pain/ arm pain /diarrhae Review of Systems Says arm pain is tolerable, abdominal pain improved significantly as well as diarrhea is also improving Patient had a 14 beat NSVT, also has hypokalemia Review of Systems: Yes all other systems are reviewed and are negative Physical Exam 2 Vital Signs: Vital Signs: Last Vital Signs Temp 98.4 F 10/05/24 15:23 Pulse 67 10/05/24 15:23 Resp 16 10/05/24 15:23 BP 127/69 10/05/24 15:23 Pulse Ox 95 10/05/24 15:23 O2 Del Method Room Air 10/05/24 15:23 BMI result Body Mass Index 26.7 Appearance: Alert.? Oriented X3.? cvs: rrr, [id number] , no murmur res: clear to auscultation ,no rhonchii or wheezing abd: no rebound or guarding ,nt, bs present. ext pulses present , no cyanosis neuro: axo3 , nonfocal. Objective Data Active Medications Acetaminophen (Acetaminophen 325 Mg Tablet) 975 mg PO Q6H PRN PRN Reason: Pain, Mild 1-3,fever,headache Albuterol/Ipratropium (Albuterol/Iprat 2.5/0.5mg 3 Ml Ampul.Neb) 3 ml INHALE Q4H PRN PRN Reason: Shortness of Breath/Wheezing Amlodipine Besylate (Amlodipine Besylate 5 Mg Tablet) 5 mg PO DAILY [facility]; Protocol Last Admin: 10/05/24 08:00 Dose: 5 mg Documented By: JESSA Calcium Carbonate (Calcium Carbonate 750 Mg Tab.Chew) 750 mg PO Q4H PRN PRN Reason: Heartburn Last Admin: 10/05/24 03:11 Dose: 750 mg Documented By: MONIK Enoxaparin Sodium (Enoxaparin Sodium 40 Mg/0.4 Ml Syringe) 40 mg SUBCUT Q24H [facility] Last Admin: 10/05/24 06:28 Dose: 40 mg Documented By: MONIK Hydralazine HCl (Hydralazine Hcl 20 Mg/Ml Vial) 10 mg IVPUSH Q6H PRN; Protocol PRN Reason: SBP > 160 Last Admin: 10/04/24 03:02 Dose: 10 mg Documented By: AP Hydromorphone HCl (Hydromorphone Hcl 0.5 Mg/0.5 Ml Syringe) 1 mg IVPUSH Q3H PRN; Protocol PRN Reason: Pain, Moderate(Pain Scale 4-6) Last Admin: 10/05/24 12:35 Dose: 1 mg Documented By: JESSA Loperamide HCl (Loperamide Hcl 2 Mg Capsule) 2 mg PO Q6H PRN PRN Reason: Diarrhea Last Admin: 10/05/24 12:35 Dose: 2 mg Documented By: JESSA Magnesium Hydroxide (Milk Of Magnesia 30 Ml Oral.Susp) 30 ml PO DAILY PRN PRN Reason: Constipation Melatonin (Melatonin 3 Mg Tablet) 6 mg PO BEDTIME PRN PRN Reason: Insomnia Metoprolol Tartrate (Metoprolol Tartrate 25 Mg Tablet) 25 mg PO BID [facility]; Protocol Last Admin: 10/05/24 08:00 Dose: 25 mg Documented By: JESSA Ondansetron HCl (Ondansetron Hcl 4 Mg/2 Ml Vial) 4 mg IVPUSH Q6H PRN PRN Reason: Nausea and Vomiting Last Admin: 10/04/24 23:16 Dose: 4 mg Documented By: MONIK Sodium Chloride (0.9 % Sodium Chloride Flush 3 Ml Syringe) 3 ml IVFLUSH [facility] Last Admin: 10/05/24 08:04 Dose: 3 ml Documented By: JESSA Zolpidem Tartrate (Zolpidem Tartrate 5 Mg Tablet) 10 mg PO BEDTIME [facility] Last Admin: 10/04/24 23:49 Dose: 10 mg Documented By: MONIK Labs 10/04/24 09:58 10/05/24 06:26 Labs: Laboratory Results - last 24 hr 10/05/24 06:26 Anion Gap 9 L Estim Creat Clear Calc 73.0 Estimated GFR > 60 Random Glucose 91 Calcium 7.8 L Magnesium 2.1 Assessment and Plan (1) Ileitis: Status: Acute Plan 78-year-old male with past medical history osteoarthritis, hypertension, prostate cancer in remission, anxiety, depression, diverticulosis, GERD, chronic BOLDEN on morphine daily, insomnia bei8ng 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 Ileitis has diarrhae, will check stool studies hold ceftriaxone and flagyl . d/w GI-hold antibiotics (might be contributing to diarrhae), advance diet Pancreatic cystic lesion, possibly a neoplasm Lipase WNL has some abd soarness,dilaudid ordered (pt has not had his morphine in 4 days) GI consulted and Oncology consulted-added abd MRI reviewed , due to elevated CEA. HTN : flactuates on Amlodipine po Hydralazine IV prn acute hypokalmia, has qt prolong and 40 beat nsvt episode will replete potassium goal potasium >4 and mag>2 moniter on tele also added metoprolol cardiology eval noted - S/p mechanical fall with current neck pain, BOLDEN (noted pt has chronic BOLDEN's) CT cervical spine and CT Head -negative fx Pt has long hx of chronic BOLDEN's on morphine daily (no morphine in 5 days) L displaced clavicle fracture s/p mechanical fall Sling in place OT if needed Left mildly displaced RIb fracture s/p mechanical fall No evidence of PTX Incentive spirometer , pillow splint to brace chest for coughing Pain management -adjusted pain meds dilaudid /tylenol Chronic BOLDEN on morphine daily Currently receiving dilaudid for abd pain with good effect on BOLDEN Pt states he ran out of morphine and did not call for refill, has not had any for 4 days, no s/s of withdrawal Diverticulosis Chronic condition ,No evidence of diverticulitis Avoid foods with seeds Hx of Anxiety and Depression home medications once med rec completed DVT Prophylaxis: Lovoneox . PPI Prophylaxis: Protonix. ongoing need :hypokalmemia /qtc prolonged nsvt-moniter tele closely , aggressive electrolyte replacement and monitoring. Quality Stroke Does the patient have a stroke diagnosis?: No Reason for No Anti-thrombotic by Day Two: N/A - Med Ordered VTE Prior VTE?: No VTE Risk Level:: Medical - moderate - high VTE Device Contraindication: N/A - Device Ordered VTE Drug Contraindication: N/A - Med Ordered
[2024-10-05] MEDS: Potassium Chloride ER 20 MEQ TAB.ER.PRT PO (16:48)
[2024-10-05 18:50] LABS: Potassium 3.8 mmol/L (3.3-5.1)
[2024-10-06 03:25] VITALS: BP 141/65; PULSE 62; RESP 16; TEMP 37.3; O2SAT 96
[2024-10-06 07:04] LABS: Anion Gap 11 (12-20); Blood Urea Nitrogen 19 mg/dL (9-16); Calcium 8.1 mg/dL (8.4-10.2); Carbon Dioxide 25 mmol/L (22-29); Chloride 106 mmol/L (96-108); Creatinine Clr Calc Pharmacy 69.5; Estimated Glomerular Filt Rate > 60; Magnesium 2.2 mg/dL (1.6-2.6); Potassium 3.7 mmol/L (3.3-5.1); Sodium 138 mmol/L (135-145)
[2024-10-06 07:12] VITALS: BP 157/72; PULSE 55; RESP 18; TEMP 36.9; O2SAT 96
[2024-10-06] MEDS: 0.9 % Sodium Chloride Flush 3 ML SYRINGE IVFLUSH (09:24)
[2024-10-06 09:26] VITALS: BP 157/72; PULSE 88
[2024-10-06 09:27] VITALS: BP 157/72
[2024-10-06] MEDS: Potassium Chloride ER 20 MEQ TAB.ER.PRT 40 MEQ PO (11:00)
--- NOTE | 2024-10-06 11:00 | MHC.CM.PN ---
Per MD, Patient is medically cleared for dc to STR today. Patient will dc to STR [facility] today at 2PM, via [facility]. CM addressed IMM with Patient at bedside, providing him with the original and a copy has been placed on the chart. Patient prefers to inform his Son himself, of the dc plan.
[2024-10-06 11:55] VITALS: BP 141/69; PULSE 59; RESP 16; TEMP 36.2; O2SAT 95
--- NOTE | 2024-10-06 12:00 | P.DS_ITS ---
DS: Providers Provider Date of Service: 10/06/24 Date of admission: 10/01/24 05:14 Date of discharge: 10/06/24 Primary care physician: Shaylee Shin CNP Consults: 10/01/24 05:21 Consult to Gastroenterology Routine Consulting Provider: Onofre Gorman Reason for consultation: Ileitis and pancreatic mass Has provider been notified: No 10/01/24 05:22 Consult to Hematology / Oncology Routine Consulting Provider: [facility] [place] Oncology/Hematology Reason for consultation: Pancreatic mass Has provider been notified: No 10/01/24 05:54 Consult to Orthopedics Routine Consulting Provider: [facility] [place] Orthopedic Surgeons Reason for consultation: displaced L clavicle fracture 10/05/24 07:38 Consult to Cardiology Routine Consulting Provider: [facility] [place] [facility] Special[facility] Reason for consultation: 40 beat nsvt Has provider been notified: No DS: Diagnosis Discharge Diagnosis (1) NSVT (nonsustained ventricular tachycardia): Status: Acute DS: Summary Hospital Course Hospital Course: HPi: 78-year-old male with past medical history osteoarthritis, hypertension, prostate cancer in remission, anxiety, depression, diverticulosis, GERD, chronic BOLDEN on morphine daily, insomnia was brought into the emergency department today for persistent nausea vomiting bile like substance. Patient has been having abdominal pain as high as 6/10. Patient states he fell approximately 4 days prior accidentally while tripping on a rug and landed on a glass coffee table (table did not break) and denies any hit to the head. Patient did not seek emergent intervention or evaluation until today. Patient denied any loss of consciousness but began to have abdominal pain with some initial diarrhea and persistent vomiting. Patient normally takes morphine daily for headaches that were diagnosed over 20 years ago and patient had not had any morphine since the fall as he ran out and did not call his doctor for his usual refill. Today patient is reporting mild cervical neck pain and mild headache. CT of the head and CT cervical spine have been ordered. No indication for C-collar at this time based on patient's clinical exam. Patient's blood pressure elevated, 184/99 right arm. Hydralazine 10 mg IV x1 provided. Patient is not normally on antihypertensives at home. Troponin is negative. ECG SR with PACs, Qtc 448. May be secondary to abdominal pain. Workup in the emergency department identified a fractured displaced left clavicle and a mildly displaced rib fracture on the left side. Patient states he had no idea he fractured his clavicle. Patient is right-handed and was not using his left side to the point that he noticed any deficiencies. Patient ambulates without a device. Patient is still drives. Patient also denies any rib pain. There is no evidence of pneumothorax. Pt is not hypoxic or short of breath at rest. CT of the abdomen and pelvis was also completed and identified a 2.6 x 1.9 cystic lesion in the body of the pancreas. Per radiologist, this could indicate intraductal papillary mucinous neoplasm. Patient has no knowledge or history of any issues with his pancreas. Patient is currently having 3/6 abdominal pain in the mid epigastric area. Patient denies any weight loss. Lipase is 21. LFTs/TBILI are normal. Patient states he has not eaten anything in the last 4 days. Patient denies any history of alcoholism or diabetes and is not on a GLP 1. In addition, CT of the abdomen indicated evidence of ileitis and diverticulosis without diverticulitis. Patient also has evidence of small bilateral nonobstructing renal stones and renal function is currently stable. Lactic acid is normal and patient does have leukocytosis of 15,000. Patient is not having any fever or chills. Patient was started on ceftriaxone in the ED. This pattern chart writer attempted to call patient's son Vern who lives in [facility] at [phone] but there was no answer. Patient does live alone and does have friends in the area but no family. hospital course: patient was admitted to the hospital because of abdominal pain and diarrhea: Found to have leukocytosis, CT abdomen showed possible ileitis, also cystic lesion of pancreas, in addition CT chest shows acute mildly displaced fracture of mid shaft of left clavicle, lung nodule left upper lung: Patient initially was started on IV fluids, IV antibiotics and Gip,Cdiff sent, also sent CEA, CA 1 9.9: Subsequently CEA return checker to be in 600, so MRI abdominal with contrast was done which showed Diffuse fatty infiltration of the pancreas. No solid pancreas masses.A pancreas cyst is present with benign MRI characteristics,IPMN: With the above supportive care patient seems to be improved significantly, diarrhea and abdominal pain improved, discussed with GI and Oncology: Patient's symptoms seems to be improved, due to ongoing diarrhea patient's antibiotics were stopped and monitored-patient diarrhea seems to be improved also. Stool studies including C diff and GI panel negative, calprotectin pending. Blood culture negative, leukocytosis improving, currently patient also improved significantly. Not much diarrhea, tolerating diet, abd pain improved. As far as elevated CEA and CT abdomen as well as MRI finding -patient need outpatient EUS and biopsy which can be scheduled as outpatient(Dr. Gorman office will arrange outpatient.) Patient had electrolytic abnormalities acute hypokalemia possibly related to diarrhea: Repleted and resolved, patient's diarrhea also improved. Shoulder clavicle fx: please see instructions above. pain control, follow up with orthopedics outpatient. rtho instructions: X-rays of the left clavicle reviewed and significant for displaced left midshaft clavicle fracture Sling for comfort for the left upper extremity Encouraged the patient to come out of the sling to work on gentle motion of the elbow (pronation, supination, flexion and extension) as well as the wrist (flexion, extension, ulnar and radial deviation) and hand (finger flexion, extension, abduction, adduction) No overhead reaching with the left upper extremity No pushing or pulling with the left upper extremity Patient should follow up with orthopedics outpatient after discharge Hypertension: Patient was started on amlodipine, in addition metoprolol added. Patient had 1 NSVT episode: Which seems to be improved with electrolyte repletion , started on p.o. metoprolol also in addition. Seen by Cardiology- currently no further workup. Monitor electrolytes closely outpatient. as per h&P note: Chronic BOLDEN on morphine daily Pt states he ran out of morphine and did not call for refill, has not had any for( atleast >1 week), no s/s of withdrawal ,please clarify further use of morphine with PCP upon discharge. Currently receiving dilaudid for clavicle fractture . Patient seen by PT recommended rehab. Patient will benefit from less than 30 days rehab stay. plan: Started on amlodipine 5 mg daily, metoprolol 25 b.i.d.. Limited potassium supply given for 3 days. Monitor BMP outpatient. Dilaudid for pain control for shoulder pain Need outpatient GI workup for elevated CEA. Calprotectin test pending, patient will follow-up outpatient. follow-up with PCP, GI outpatient. Also follow up with PCP with lung nodules considered outpatient pulmonary evaluation. Patient was strongly advised if any new symptoms go to the nearest emergency room for further evaluation. Above management discussed with the patient detail length he understand and in agreement the plan, time spent 40 minute, patient understand and in agreement with the above plan, all questions answered, staff was present during conversation. Time Attestation Total time managing care of this patient today: 40 mintues. Discharge Coordination Time (in mins): 40 min Quality: Safe Use of Opioids Does Pt have an Active Cancer Diagnosis on the Problem List?: No Quality: Stroke Does the patient have a stroke diagnosis?: No Physical Exam Vital Signs: Vital Signs: Last Vital Signs Temp 97.2 F 10/06/24 11:55 Pulse 59 10/06/24 11:55 Resp 16 10/06/24 11:55 BP 141/69 H 10/06/24 11:55 Pulse Ox 95 10/06/24 11:55 O2 Del Method Room Air 10/06/24 11:55 BMI result Body Mass Index 26.7 Appearance: Alert.? Oriented X3.? cvs: rrr, [id number] , no murmur res: clear to auscultation ,no rhonchii or wheezing abd: no rebound or guarding ,nt, bs present. ext pulses present , no cyanosis , has left arm sling neuro: axo3 , nonfocal. DS: Data Data Completed and Pending Labs on day of discharge: Laboratory Results - last 24 hr 10/05/24 10/06/24 18:21 06:27 Hold Purple Top SEE NOTE Sodium 138 Potassium 3.8 D 3.7 Chloride 106 Carbon Dioxide 25 Anion Gap 11 L BUN 19 H Creatinine 0.82 Estim Creat Clear Calc 69.5 Estimated GFR > 60 Random Glucose 103 Calcium 8.1 L Magnesium 2.2 Imaging Chest x-ray: Radiologist's impression: ITS Impressions Cervical Spine CT 10/01/24 07:52 IMPRESSION: 1. No CT evidence of acute cervical spine fracture or injury. 2. Stable moderate diffuse spondylosis. Electronically signed by: Delfino Blanco MD 10/01/2024 09:[address] 10/01/24 07:52 IMPRESSION: 1. Acute mildly displaced fracture of the midshaft of the left clavicle. 2. Stable 9 mm left upper lobe pulmonary nodule. 3. Mildly elevated right hemidiaphragm with adjacent subsegmental atelectasis. Electronically signed by: Onofre Barone MD 10/01/2024 10:29 AM EDT RP Head CT 10/01/24 07:52 IMPRESSION: No acute intracranial abnormality. No fracture evident. Electronically signed by: Delfino Blanco MD 10/01/2024 09:50 AM EDT RP Discharge Plan Discharge Anticipated Discharge Date/Time: 10/06/24 11:33 Patient Disposition: Xfer SNF Discharge Diagnosis: diarrahae likely viral ,pancreatic cyst /ipmn, Referrals: [facility] [Outside] - 1 Week Luke Alfred PA [Physician Banking Management Consulting Manager, Hand Surgery] - 1 Week Shaylee Shin CNP [Primary Care Provider, [facility]] - 1 Week Discharge Medications: New amlodipine 5 mg Tablet 5 mg PO DAILY Qty: 1 0RF Protocol: Hold for SBP< HOLD for SBP < : 90 metoprolol tartrate 25 mg Tablet 25 mg PO BID Qty: 1 0RF Protocol: Hold for SBP/HR < HOLD for SBP < : 90 HOLD for HR < : 60 acetaminophen 325 mg Tablet 975 mg PO Q6H PRN (Reason: Pain, Mild 1-3,Fever,Headache) Qty: 1 0RF hydromorphone 2 mg Tablet 1 mg PO Q4H PRN (Reason: Pain, Severe (Pain Scale 7-10)) Qty: 20 0RF Rx Instructions: Partial Fill upon patient request. potassium chloride 10 mEq capsule, extended release 10 meq PO DAILY Qty: 4 0RF Continued (DME) blood pressure monitor [Blood Pressure Kit] Kit See Rx Instructions .Route Qty: 1 0RF Rx Instructions: As directed zolpidem [Ambien] 10 mg tablet 10 mg PO BEDTIME Held morphine 60 mg tablet extended release 60 mg PO BID Hold Instructions: Resume on 10/25/24. Discharge Orders: Discharge Order (Routine); Ordered 10/06/24 Ordered By: Cira Reese Diet: Advance to usual diet Activity on Discharge: As tolerated Stand Alone Forms: Patient Portal Discharge page Print Language: Trinidadian Activity Restrictions/Additional Instructions: ortho instructions: X-rays of the left clavicle reviewed and significant for displaced left midshaft clavicle fracture Sling for comfort for the left upper extremity Encouraged the patient to come out of the sling to work on gentle motion of the elbow (pronation, supination, flexion and extension) as well as the wrist (flexion, extension, ulnar and radial deviation) and hand (finger flexion, extension, abduction, adduction) No overhead reaching with the left upper extremity No pushing or pulling with the left upper extremity Patient should follow up with orthopedics outpatient after discharge Care Plan Goals: Patient was admitted to the hospital because of abdominal pain and diarrhea: Found to have leukocytosis, CT abdomen showed possible ileitis, also cystic lesion of pancreas, in addition CT chest shows acute mildly displaced fracture of mid shaft of left clavicle, lung nodule left upper lung: Patient initially was started on IV fluids, IV antibiotics and Gip,Cdiff sent, also sent CEA, CA 19.9: Subsequently CEA return checker to be in 600, so MRI abdominal with contrast was done which showed Diffuse fatty infiltration of the pancreas. No solid pancreas masses.A pancreas cyst is present with benign MRI characteristics,IPMN: With the above supportive care patient seems to be improved significantly, diarrhea and abdominal pain improved, discussed with GI and Oncology: Patient's symptoms seems to be improved, due to ongoing diarrhea patient's antibiotics w ere stopped and monitored-patient diarrhea seems to be improved also. As far as elevated CEA and CT abdomen as well as MRI finding -patient need outpatient EUS and biopsy which can be scheduled as outpatient(Dr. Gorman office will arrange outpatient.) Patient had electrolytic abnormalities acute hypokalemia possibly related to diarrhea: Repleted and resolved, patient's diarrhea also improved. Shoulder clavicle fx: please see instructions above. pain control, follow up with orthopedics outpatient. Hypertension: Patient was started on amlodipine, in addition metoprolol added. Patient had 1 NSVT episode: Which seems to be improved with electrolyte repletion , started on p.o. metoprolol also in addition. Seen by Cardiology- currently no further workup. Monitor electrolytes closely outpatient. Health Concerns: As above. Plan of Treatment: Started on amlodipine 5 mg daily, metoprolol 25 b.i.d.. Limited potassium supply given for 4 days. Monitor BMP outpatient. Dilaudid for pain control for shoulder pain Need outpatient GI workup for elevated CEA. follow-up with PCP, GI outpatient. Also follow up with PCP with lung nodules considered outpatient pulmonary evaluation. Patient was strongly advised if any new symptoms go to the nearest emergency room for further evaluation. Assessment: As above.
[2024-10-09 19:04] LABS: Calprotectin, Fecal 17 mcg/g
== END 2024-10-06 14:14 | disposition skilled nursing facility (03) | DRG 392 ==
LOC: HO.ED 10-01 03:43 → HO.EDOVER 10-01 06:22 → HO.IMC 10-01 19:22
PROVIDERS: Physician Assistant Medical; Student in an Organized Health Care Education/Training Program; Admitting Provider Nurse Practitioner Family; Emergency Provider Emergency Medicine; PCP Nurse Practitioner Primary Care; Visit Provider Internal Medicine
DX: A08.4 Viral intestinal infection, unspecified (principal); S22.32XA Fracture of one rib, left side, initial encounter for closed fracture; I47.20 Ventricular tachycardia, unspecified; S42.022A Displaced fracture of shaft of left clavicle, initial encounter for closed fracture; K57.30 Diverticulosis of large intestine without perforation or abscess without bleeding; R51.9 Headache, unspecified; E87.6 Hypokalemia; I10 Essential (primary) hypertension; D13.6 Benign neoplasm of pancreas; W19.XXXA Unspecified fall, initial encounter; Z20.822 Contact with and (suspected) exposure to COVID-19; Z79.891 Long term (current) use of opiate analgesic; Z79.899 Other long term (current) drug therapy
CPT/HCPCS: 36415; 70450; 71250; 72125; 73000; 73030; 74177; 74183; 80048; 80053; 81001; 82150; 82378; 82947; 83605; 83690; 83735; 83993; 84132; 84484; 85007; 85025; 85027; 86301; 87040; 87493; 87507; 87637; 93005; 93306; 97110; 97116; 97162; 97166; 97530; 97535; 99285; A9585; J0360; J0696; J1171; J1650; J1836; J2270; J2405; J2470; J3480; Q9957; Q9967

== ENCOUNTER → 2024-09-30 | Outpatient (BNV) | payer MEDICARE, SELFPAY | PROVIDERS: Admitting Provider Nurse Practitioner Family; Emergency Provider Emergency Medicine; PCP Nurse Practitioner Primary Care; Visit Provider Internal Medicine Cardiovascular Disease | DX: I49.1 Atrial premature depolarization (principal) | CPT/HCPCS: 93010 ==

== ENCOUNTER → 2024-10-01 01:30 | Outpatient (BNV) | payer MEDICARE, SELFPAY | PROVIDERS: Emergency Provider Emergency Medicine; PCP Nurse Practitioner Primary Care; Visit Provider Radiology Diagnostic Radiology | DX: K57.30 Diverticulosis of large intestine without perforation or abscess without bleeding (principal); N20.0 Calculus of kidney; R91.1 Solitary pulmonary nodule; M47.812 Spondylosis without myelopathy or radiculopathy, cervical region; R11.2 Nausea with vomiting, unspecified; R19.7 Diarrhea, unspecified; S42.022A Displaced fracture of shaft of left clavicle, initial encounter for closed fracture | CPT/HCPCS: 70450; 71250; 72125; 73000; 73030; 74177 ==

== ENCOUNTER 2024-10-01 05:14 | Outpatient (BNV) | payer MEDICARE, SELFPAY | END 2024-10-02 17:23 | PROVIDERS: Admitting Provider Nurse Practitioner Family; Emergency Provider Emergency Medicine; PCP Nurse Practitioner Primary Care; Visit Provider Radiology Diagnostic Radiology | DX: K90.3 Pancreatic steatorrhea (principal); K86.2 Cyst of pancreas | CPT/HCPCS: 74183 ==

== ENCOUNTER 2024-10-01 05:14 | Outpatient (BNV) | payer MEDICARE, SELFPAY | END 2024-10-05 07:17 | PROVIDERS: Admitting Provider Nurse Practitioner Family; Emergency Provider Emergency Medicine; PCP Nurse Practitioner Primary Care; Visit Provider Internal Medicine Cardiovascular Disease | DX: I47.10 Supraventricular tachycardia, unspecified (principal) | CPT/HCPCS: 93306 ==

== ENCOUNTER → 2024-10-01 05:14 | Outpatient (BNV) | payer MEDICARE, SELFPAY | PROVIDERS: Admitting Provider Nurse Practitioner Family; Emergency Provider Emergency Medicine; PCP Nurse Practitioner Primary Care; Visit Provider Student in an Organized Health Care Education/Training Program | DX: K52.9 Noninfective gastroenteritis and colitis, unspecified (principal) | CPT/HCPCS: 99231; 99232; 99239; 99499 ==

== ENCOUNTER → 2024-10-01 05:14 | Outpatient (BNV) | payer MEDICARE, SELFPAY | PROVIDERS: Admitting Provider Nurse Practitioner Family; Emergency Provider Emergency Medicine; PCP Nurse Practitioner Primary Care; Visit Provider Physician Assistant | DX: S42.002A Fracture of unspecified part of left clavicle, initial encounter for closed fracture (principal) | CPT/HCPCS: 99222 ==

== ENCOUNTER → 2024-10-01 05:14 | Outpatient (BNV) | payer MEDICARE, SELFPAY | PROVIDERS: Admitting Provider Nurse Practitioner Family; Emergency Provider Emergency Medicine; PCP Nurse Practitioner Primary Care; Visit Provider Internal Medicine Cardiovascular Disease | DX: I47.29 Other ventricular tachycardia (principal) | CPT/HCPCS: 99232 ==

== ENCOUNTER → 2024-10-01 05:14 | Outpatient (BNV) | payer MEDICARE, SELFPAY | PROVIDERS: Admitting Provider Nurse Practitioner Family; Emergency Provider Emergency Medicine; PCP Nurse Practitioner Primary Care; Visit Provider Internal Medicine | DX: K86.2 Cyst of pancreas (principal) | CPT/HCPCS: 99232 ==

== ENCOUNTER 2024-10-19 10:29 | Outpatient (REF) | payer MEDICARE, SELFPAY | END 2024-10-19 10:30 | disposition home or self-care (01) | LOC: HO.HOSX 10:29 | PROVIDERS: Visit Provider Physician Assistant | DX: Z13.89 Encounter for screening for other disorder (principal) ==

== ENCOUNTER 2024-10-23 13:53 | Outpatient (AMB) | payer MEDICARE, SELFPAY ==
--- NOTE | 2024-10-23 14:19 | MHC.OFFVIS ---
Intake Visit Reasons: FC-displaced L clavicle fracture-DOS 10/01/24 Intake Note: Pj is a 78 year old male who presents today for a fracture care appointment for a left clavicle fx, DOI 10/01/24. Patient reports he hit his shoulder on his coffee table. He states that he is not having pain at the moment. Patient is staying in [place]. Impression: 1. Displaced left mid clavicular fracture. 2. Mildly displaced left 4th rib fracture. Allergies shellfish derived (SHELLFISH DERIVED) Allergy (Intermediate, Verified 10/23/24 14:31) GI S/E pollen extracts (POLLEN) Allergy (Mild, Verified 10/23/24 14:31) RUNNY NOSE HPI HPI FC-displaced L clavicle fracture-DOS 10/01/24: Details: Mr. Greenberg is an 78-year-old right-hand dominant male who presents to the office today status post mechanical fall that occurred at the beginning of September. He presented to the emergency room on 10/01/2024 several days after his initial injury when he sustained a mechanical fall onto the coffee table. He was complaining of left shoulder pain with an obvious deformity over the clavicle. X-rays were obtained and he was found to have a midshaft clavicle fracture which was displaced. He was placed into a sling and instructed to follow up with orthopedics outpatient for further evaluation and treatment. Of note, patient is currently at [facility]. [facility] Medical History Carotid stenosis, bilateral Depression Urolithiasis PSVT (paroxysmal supraventricular tachycardia) IBS (irritable bowel syndrome) Hypogonadism in male History of prostate cancer History of colon polyps Diverticulosis of colon Carpal tunnel syndrome Chronic headache Chronic cough Allergic rhinitis Migraine Anxiety Hypertension Surgical History H/O repair of right rotator cuff Hx of cataract surgery History of carpal tunnel release Family History Brother Diabetes Prostate cancer Mother Congestive heart failure Social History Household Members: None Housing: House Do you presently have visiting nurse or other home services: No Alcohol intake: current Alcohol intake frequency: does not drink Patient Tobacco Use Status: Never used Tobacco service: No Current occupational status: retired 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 There is no skin tenting or skin breakdown. Remarkably, the patient is able to demonstrate full forward flexion and abduction. External rotation to back pocket. NVI. Psych Appearance: grossly normal Mental Status: mental status grossly normal Attitude: cooperative Assessment & Plan Assessment & Plan (1) Closed fracture of left clavicle: Code(s): S42.002A - Fracture of unspecified part of left clavicle, initial encounter for closed fracture Category: Medical Plan Mr. Greenberg is an 78-year-old right-hand dominant male who presents to the office today status post mechanical fall that occurred at the beginning of September. He presented to the emergency room on 10/01/2024 several days after his initial injury when he sustained a mechanical fall onto the coffee table. He was complaining of left shoulder pain with an obvious deformity over the clavicle. X-rays were obtained and he was found to have a midshaft clavicle fracture which was displaced. He was placed into a sling and instructed to follow up with orthopedics outpatient for further evaluation and treatment. Of note, patient is currently at [facility]. While in the office today, the patient does seem a little confused in his irritated with being of the rehab center. Remarkably he does have full range of motion of the left upper extremity. He may use a sling for comfort. Recommend no lifting, pushing or pulling with the left upper extremity. Limit overhead use. Patient is not experiencing any pain at this time. Patient seemed confused at the end of the visit as he reported that no one had evaluated his left shoulder while he was at check out. I addressed this with the patient stating that had just evaluated him in the exam room. He does recall this. He will be transported back to the rehab center. He will follow up with Orthopedics in 4 weeks with repeat x-rays, sooner if needed. Coding Level of Care Code New Pt Level 3 (40672) Diagnoses Closed fracture of left clavicle S42.002A
--- OUTSIDE RECORDS SUMMARY | 2024-10-23 14:39 | XMS_ITS | Data Portability ---
Author Organization [facility], Main Office Address [address] [place] [address] Care Team Providers Care Durability Engineer Name Role Phone [facility] Primary Care Provider Assessment Encounter Date Assessment Date Assessment LastModified by Organization Details LastModified Time 10/08/2024 10/08/2024 Labs 712: Na 138- K 3.7- Bun 19 Cr 0.8 Not available 10/10/2024 11:43:26 10/11/2024 10/11/2024 Labs 7/12: Na 138- K 3.7- Bun 19 Cr 0.8 Not available 10/13/2024 15:58:04 10/17/2024 10/17/2024 Labs 712: Na 138- K 3.7- Bun 19 Cr 0.8 Not available 10/17/2024 09:12:45 Plan of Treatment Reminders Order Date Submit Date Provider Last Modified By Organization Details Last Modified Time Details Appointments None recorded. Lab None recorded. Referral None recorded. Procedures None recorded. Surgeries None recorded. Imaging None recorded. Medication Orders morphine ER 30 mg tablet,ex tended release 2024 025 [facility], [address], [address], [place], [address], 23:36:12 Patient TargetsNo targets recorded. Patient Instructions Encounter Date Encounter Id Patient Instructions Last Modified By Organization Details Last Modified Time 10/17/2024 [id number] history of methyphenidate use; not currently prescribed in facility ssupect possible cognitive impairment Not available 10/17/2024 12:29:57 Reason for Referral None Reported. Problems Name Problem SNOMED Code Status Onset Date Resolution Date Notes Provider Name and Address Organization Details Recorded Time Ventricular tachycardia 13952131 Active 2024 Not Available [facility] 08:50:10 Essential hypertension 42644355 Active 2024 KAMALA DYER [address], [address], [place], [address] , [facility] 5 11:47:24 Leukocytosis 710706275 Active 2024 Not Available [facility] 18:40:20 Generalized abdominal pain 082195619 Active 2024 Not Available [facility] 18:43:47 Benign neoplasm of pancreas 03158015 Active 2024 Not Available [facility] 18:46:00 Anxiety disorder 323825912 Active 2024 Not Available [facility] 08:45:59 Depressive disorder 04030071 Active 2024 Not Available [facility] 08:46:01 Fall Active 2024 Not Available [facility] 08:52:05 Primary malignant neoplasm of prostate 58948273 Active 2024 Not Available [facility] 08:47:56 Fracture of shaft of clavicle 58747784 Active 2024 Not Available [facility] 08:53:02 Fracture of one rib 69859430 Active 2024 Not Available [facility] 08:54:56 Muscle weakness 89503473 Active 2024 Not Available [facility] 16:12:51 Difficulty walking 093540010 Active 2024 Not Available [facility] 5 16:13:49 Cyst of pancreas 67295564 Active 2024 Not Available [facility] 5 08:54:57 History of migraine 710608913 Active 2024 KAMALA DYER [address], [place], [address] , [facility] [employer] [facility] 5 11:10:42 Closed fracture of clavicle 41140977 Active 2024 KAMALA DYER [address] , [address], [place], [address] , [facility] [employer] 5 11:15:39 History of fall 952482137 Active 2024 KAMALA DYER [address] , [address], [place], [address] , [facility] 5 11:47:10 Closed fracture of one rib 79477432 Active 2024 KAMALA DYER [address] , [address], [place], [address] , [facility] [employer] [facility] 5 11:47:16 Mixed anxiety and depressive disorder 034971345 Active 2024 KAMALA DYER [address] , [address], [place], [address] , [facility] [employer] 5 11:47:28 Gastroesophag eal reflux disease without esophagitis 934753579 Active 2024 KAMALA DYER [address] , [address], [place], [address] , [facility] [employer] 5 11:47:32 Primary insomnia 9910445 Active 2024 KAMALA DYER [address] , [address], [place], [address] , [facility] [employer] 5 11:47:34 Problem Notes None recorded. Medical Equipment None Reported. Medications Name Sig Start Date Stop Date Status Note LastModified by Organization Details LastModified Time acetaminophe n 325 mg tablet Give 975 mg by mouth every 8 hours as needed for pain AND Give 975 mg by mouth every 8 hours as needed for Elevated Temperature 2024 active Not Available Not Available Not Avai lable amlodipine 5 mg tablet Give 1 tablet by mouth one time a day for Hypertensio n Hold for SBP less than 90 2024 active Not Available Not Available Not Avai lable morphine ER 30 mg tablet,exten ded release Take 1 tablet every 12 hours by oral route, for migraines. 2024 active Not Available Not Available Not Avai lable hydromorphon e 2 mg tablet Give 1 mg by mouth every 4 hours as needed for severe pain (pain tyra 7-10) 2024 active Not Available Not Available Not Avai lable Laxative (sennosides) 8.6 mg tablet Give 1 tablet by mouth every 24 hours as needed for Constipatio n 2024 active Not Available Not Available Not Avai lable Oramorph SR 60 mg tablet,exten ded release Give 60 milligram by mouth two times a day for HYPNOTICS/S EDATIVES/SL EEP DISORDER AGENTS 2024 active Not Available Not Available Not Avai lable metoprolol tartrate 25 mg tablet Give 1 tablet by mouth two times a day for Hypertensio n Hold for SBP less than 90 hold for heart rate less than 60 2024 active Not Available Not Available Not Avai lable AMBIEN HEYDI 10 mg tablet Give 1 tablet by mouth at bedtime for For severe pain 2024 active Not Available Not Available Not Avai lable sodium phosphates 19 gram-7 gram/197 mL enema Insert 1 unit rectally every 24 hours as needed for Constipatio n Use only if Bisacodyl Suppository is ineffective 2024 active Not Available Not Available Not Avai lable OneLAX Bisacodyl 10 mg rectal suppository Insert 1 suppository rectally every 24 hours as needed for constipatio n Use if Senna is Ineffective 2024 active Not Available Not Available Not Avai lable Vitals Date Recorded Body temperature Respiratory rate Heart rate Systolic And Diastolic Provider Name and Address Organization Details Last Updated DateTime 10/08/2024 97.2 [degF] 16 /min 60 /min 141/69 mm[Hg] KAMALA DYER [address] [facility], [address], [place], [address], [facility] 11:43:48 Social History Question Answer Notes LastModified by Organizat ion Details LastModified Time Tobacco Smoking Status Never Smoker KAMALA DYER [address], [address], [place], [address], [facility] 10/10/2024 11:48:22 Do You Have An Advance Directive? Yes Information not available 10/10/2024 What Is Your Level Of Caffeine Consumption? Moderate Information not available 10/10/2024 What Is Your Code Status? Full Code Information not available 10/10/2024 Where Do You Live? [place] Information not available 10/10/2024 Do You Have A Medical Power Of Painting Contractor? No Information not available 10/10/2024 What Was The Date Of Your Most Recent Tobacco Screening? 10/08/2024 Information not available 10/10/2024 Do You Have An Out Of Hospital DNR? No Information not available 10/10/2024 What Is Your Relationship Status? Information not available 10/10/2024 Has Tobacco Cessation Counseling Been Provided? No Information not available 10/10/2024 Sex: Unknown Functional Status Question Answer Note LastModified by Organizat ion Details LastModified Time Do you use any illicit or recreational drugs? No Information not available 10/10/2024 Do you or have you ever used any other forms of tobacco or nicotine? No Information not available 10/10/2024 What is your level of alcohol consumption? None Information not available 10/10/2024 Mental Status None recorded. Family History Nothing Reported. Medical History No medical history recorded. Past Encounters Encounter ID Performer Location Encounter Start Date Encounter Closed Date Diagnosis/Indication Diagnosis SNOMED-CT Code Diagnosis ICD10 Code Diagnosis Note [id number] KAMALA DYER [address] [place] [address] 10/08/2024 10:13:43 10/22/2024 21:28:15 History of migraine 065662745 Z86.69 chronic headaches on intermediate morphine 120 mg dailycont methylphen idate History of fall 89756107 9 Z91.81 unwitnesse d at homeresult ing in left clavicle and rib fxPT/OT eval and txMorse Closed fra cture of clavicle 68501719 S42.002A from traumatic injury s/p fallortho slingPT/OT eval and txf/u with ortho Closed fra cture of one rib 81362011 S22.32XA from traumatic injury s/p fallIS for preventati ve resp. issuesPT/O T eval and txf/u with ortho Essential hypertension 66187653 I10 was not previously on medication BP initially high tx with IV hydralazin edischarge on new medscont metoprolol and amlodipine noted hypokalemi c noted with 1 event of NSVT- resolved with repletion. Cyst of pancreas 7920029 0 K86.2 lipase wnlMRI with contrast showed diffused fatty infiltrate and benign cystCEA ^600f/u outpatient for EUS and biopsy with Dr. Gorman Mixed anxi ety and depressive disorder 901672065 F41.8 cont, bupropion, trazodone and alprazolam Primary insomnia 0111332 F51.01 cont ambien Gastroesop hageal reflux disease without esophagitis 005472711 K21.9 cont omeprazole Generalize d abdominal pain 138402253 R10.84 now resolvedin itially presented with diarrheano david hypokalemi c noted with 1 event of NSVT- resolved with repletion. [id number] DANNA RUBY, SUPER[employer] [facility] [address] [place] [address] 10/11/2024 12:19:13 10/13/2024 16:55:40 Generalized abdominal pain 561496813 R10.84 no complaints History of migraine 1614 45389 Z86.69 stablecont morphine 60 mg BIDcont methylphen idate History of fall 11930164 9 Z91.81 unwitnesse d at homeresult ing in left clavicle and rib fxPT/OT eval and txMorse Closed fra cture of clavicle 28198245 S42.002A stablefrom traumatic injury s/p fallortho slingcont PT/Adelfo/u with ortho Closed fra cture of one rib 11908942 S22.32XA stablefrom traumatic injury s/p fallcont IS for preventati ve resp. issuescont PT/Adelfo/u with ortho [id number] Rissa Alvarez MD [facility] [address] [place], [place] [address] 10/17/2024 09:12:14 10/17/2024 12:32:05 Generalized abdominal pain 951703570 R10.84 pain with diarrhea resolvedCT findings of ILEITIS, pancreatic cyst and elevated CEA to 600.follow -up MRI demonstrat david diffuse fatty nifiltrati on of pancreas as well as benign characteri stics of cyst. For scheduled outpat UES (bx) with Dr Holman History of migraine 1614 60373 Z86.69 reports chronic headaches History of fall 16920776 9 Z91.81 see HPI; fall while leaving house for ED visitresul ting in left clavicle and rib fx Closed fra cture of clavicle 32817266 S42.002A from traumatic injury s/p fallortho slingPT/OT eval and txf/u with ortho Closed fra cture of one rib 29807059 S22.32XA from traumatic injury s/p fallIS for preventati ve resp. issuesPT/O T eval and txf/u with ortho Essential hypertension 65257606 I10 diagnosed in recent hospitaliz ationmetop rolol 25mg bid / amlodipine 5mg daily; at goal 10/17/2024 09:11 116 / 74 mmHg Lying r/arm ajsmith (Manual) 09:11 116 / 74 mmHg Lying r/arm ajsmith (Manual) 22:11 118 / 64 mmHg Lying l/arm dleysath (Manual) 08:56 121 / 68 mmHg Lying l/arm ajsmith (Manual) 08:56 121 / 68 mmHg Lying l/arm ajsmith (Manual) 21:04 129 / 74 mmHg Sitting l/arm rpereira (Manual) 19:04 120 / 65 mmHg Lying l/arm ajsmith (Manual) 09:16 120 / 65 mmHg Lying l/arm ajsmith (Manual) 09:16 120 / 65 mmHg Lying l/arm ajsmith (Manual) 21:18 126 / 68 mmHg Lying l/arm dleysath (Manual) 13:48 134 / 78 mmHg Lying r/arm ncassista (Manual) 19:26 146 / 74 mmHg Lying l/arm ajsmith (Manual) 14:07 134 / 69 mmHg Sitting r/arm ajsmith (Manual) 14:06 139 / 69 mmHg Lying l/arm ajsmith (Manual) 14:05 134 / 69 mmHg Lying l/arm Cyst of pancreas 9944424 0 K86.2 lipase wnlMRI with contrast showed diffused fatty infiltrate and benign cystCEA ^600f/u outpatient for EUS and biopsy with Dr. Gorman Mixed anxi ety and depressive disorder 638487599 F41.8 cont, bupropion, trazodone and alprazolam Primary insomnia 6265716 F51.01 ambien 10mg qhs Gastroesop hageal reflux disease without esophagitis 115979093 K21.9 cont omeprazole For resuscitation 056632 001 Z78.9 High carci noembryonic antigen level 634698457 R97.0 for outpatient work-up (see above) Nodule of lung 676119744 R91.1 incidental finding; GRACY Drug therapy finding 309 513443 Z79.891 morphine 60mg bid maintenanc e (no PRN dilaudid) Chronic pr imary headache 380751061 R51.9 G89.29 reports onset since age 16yo; on chronic opiatesbas jasmine 6/10 pain Health Concerns Section Related Observation LastModified by Organization Detai ls LastModified Time None Recorded Concern Status LastModified by Organization Details LastModified Time None Recorded Advance Directives Directive Y: Payers Insurance Date Sequence Insurance Name Policy Number Policy Celeste Covered Member ID Celeste Member ID Guarantor Name 10/17/2024 1 [place] (MEDICARE REPLACEMENT PPO) [id number] Pj Greenberg [id number] Pj Greenberg
--- OUTSIDE RECORDS SUMMARY | 2024-10-23 14:39 | XMS_ITS | Patient Health Record ---
Author Organization [facility] Address [address] [place] [address] Care Team Providers Care Hydrometer Calibrator Name Role Phone Shaylee Shin Primary Care Provider Clint Rivas Unavailable [phone] Allergies Allergen (clinical drug ingredient) Drug/Non Drug [...] Vaccine Route Administration Date Status Comme nts Influenza Unknown 02/03/2020 Administered COVID-19 Pfizer BioNTech Vaccine Unknown 06/12/2020 Administered 1st 05/01/2020 Social History Tobacco Use: Social History Observation [...] W/U Status Risk Notes Problem Tinea unguium (695479400) Tinea unguium (B35.1) Active confirmed Plan Of Treatment Pending Test Test Name Order Date 59932-FWISPJN NAIL, 6 OR MORE 09/05/2012 35643-PBYPDON NAIL, 6 OR MORE 01/05/2013 82546-NAHONQT NAIL, 6 OR MORE 04/20/2013 83260-HUYPJJN NAIL, 6 OR MORE 06/29/2013 95205-JSHOYKH NAIL, 6 OR MORE 10/02/2013 88739-JXKNHNG NAIL, 6 OR MORE 12/28/2013 01731-BNPVHOE NAIL, 6 OR MORE 04/10/2014 75821-APFAAOI NAIL, 6 OR MORE 07/09/2014 36972-RDVLZRS NAIL, 6 OR MORE 10/22/2014 12496-MMSEGZD NAIL, 6 OR MORE 01/21/2015 03318-TXWDMWR NAIL, 6 OR MORE 04/25/2015 83859-FTOGJJH NAIL, 6 OR MORE 07/04/2015 24985-YEVIYNH NAIL, 6 OR MORE 09/05/2015 92555-SKSJIDQ NAIL, 6 OR MORE 11/07/2015 72985-WAIBLDB NAIL, 6 OR MORE 02/17/2016 61698-JYJWDHG NAIL, 6 OR MORE 04/27/2016 70728-XRPTRNV NAIL, 6 OR MORE 07/06/2016 00388-CHWDRKN NAIL, 6 OR MORE 09/07/2016 65434-QLNNZLH NAIL, 6 OR MORE 11/23/2016 99183-RLTGBUG NAIL, 6 OR MORE 01/28/2017 98090-EMWCVPI NAIL, 6 OR MORE 04/01/2017 48944-ATCGFJS NAIL, 6 OR MORE 07/01/2017 21638-YDGPMZS NAIL, 6 OR MORE 09/06/2017 63117-NWWXFIL NAIL, 6 OR MORE 11/11/2017 66871-XCMLMUE NAIL, 6 OR MORE 02/03/2018 01204-QWHMZSP NAIL, 6 OR MORE 04/07/2018 07579-QORGCGM NAIL, 6 OR MORE 07/07/2018 88636-OPPPSRV NAIL, 6 OR MORE 09/15/2018 01088-YERYWAF NAIL, 6 OR MORE 02/09/2019 03072-BBGURZJ NAIL, 6 OR MORE 04/20/2019 81297-PRJBRGT NAIL, 6 OR MORE 06/26/2019 47793-QMDGATV NAIL, 6 OR MORE 09/04/2019 74905-IPFTEUQ NAIL, 6 OR MORE 11/13/2019 59972-CNCFMUP NAIL, 6 OR MORE 01/12/2011 66199-XNQUVAZ NAIL, 6 OR MORE 04/06/2011 14047-JKFIEMW NAIL, 6 OR MORE 07/09/2011 23606-IRRPBLX NAIL, 6 OR MORE 09/23/2011 14862-JDOVXBS NAIL, 6 OR MORE 12/24/2011 71933-GWSFSYP NAIL, 6 OR MORE 03/10/2012 23184-TLIXIRQ NAIL, 6 OR MORE 02/29/2020 70754-OTJNFZW NAIL, 6 OR MORE 05/09/2020 46319-BBETKOP NAIL, 6 OR MORE 09/23/2020 54650-WOJMZNG NAIL, 6 OR MORE 12/23/2020 87611-AZRDDIF NAIL, 6 OR MORE 09/25/2021 86118-CWKGESS NAIL, 6 OR MORE 06/07/2012 44235-Lemsqipb Plate 06/07/2012 52446-Ruumjaaz Plate 11/13/2019 01904- Ganglion Cyst Injection/Aspiratio n 03/10/2012 Insurance Providers Payer Name Payer Address Payer Phone Subscriber Number Group Number Insured Name Patient Relationship to Insured Coverage Start Date Coverage End Date [facility] 65 Medicare Preferred [address] [place] [address] [id number] Pj Greenberg Self - patient is the insured Medical (General) History Surgical History Surgery Date(Month/Year) shoulder surgery 2012 oral surgery left hand carpal tunnel surgery 08/20/19 14 Hospitalization History Reason Date(Month/Year) Patient admitted to [facility] ter for room tilting. 10/2013 [facility], 2 days, reaction to Fentanyl, exper iencing hallucinations 02/2015 [facility] for kidney stones 9 HM- Fall 04/2020 [facility] -fell off latter fractur ed left elbow 05/2020
--- OUTSIDE RECORDS SUMMARY | 2024-10-23 14:39 | XMS_ITS | Patient Health Record ---
Author Organization [facility] Address [address] [place] [address] Care Team Providers Care Lining Inserter Name Role Phone Ghulam Jon Primary Care Provider [phone] Reason For Referral No Information Plan Of Treatment No Information Insurance Providers Payer Name Payer Address Payer Phone Subscriber Number Group Number Insured Name Patient Relationship to Insured Coverage Start Date Coverage End Date BCBS PPO [address] [place], [place] [id number] Pj Greenberg Self - patient is the insured
--- OUTSIDE RECORDS SUMMARY | 2024-10-23 14:39 | XMS_ITS | Encounter Summary ---
Author Organization [facility] Address [address] [place] [address] Care Team Providers Care Blindstitch Hemmer Name Role Phone Jake Sheets MD Primary Care Provider [phone] Encounter Details Date Type Department Care Team (Late st Contact Info) Description 10/10/2024 Lab Requisition [facility] - Main Lab [address] [place] [address] Jake Sheets MD [address] [place] [address] [address] [place], [address] Elevated white blood cell count, unspecified; Generalized abdominal pain Social History Tobacco Use Types Packs/Day Years Used Date Smoking Tobacco: Never Assessed Sex and Gender Information Value Date Recorded Sex Assigned at Not on file Legal Sex Male 1:01 AM EST Gender Identity Not on file Sexual Orientation Not on file documented as of this encounter Plan of Treatment Not on file documented as of this encounter Procedures Procedure Name Priority Date/Time Associated Diagnosis Comments COMPLETE BLOOD COUNT Routine 10/10/2024 5:26 AM EDT Elevated white blood cell count, unspecified Generalized abdominal pain BASIC METABOLIC PANEL Routine 10/10/2024 5:26 AM EDT Elevated white blood cell count, unspecified Generalized abdominal pain documented in this encounter Results * (ABNORMAL) Basic metabolic panel (10/10/2024 5:26 AM EDT) Sodium 143 133 - 145 mmol/L LAB CHEMISTRY METHOD 10/10/2024 1:33 PM EDT [facility] Potassium 3.5 3.5 - 5.5 mmol/L LAB CHEMISTRY METHOD 10/10/2024 1:33 PM EDT [facility] Chloride 106 96 - 110 mmol/L LAB CHEMISTRY METHOD 10/10/2024 1:33 PM EDT [facility] CO2 27 21 - 32 mmol/L LAB CHEMISTRY METHOD 10/10/2024 1:33 PM [facility] Anion Gap 10 3 - 11 LAB CHE[facility]STR[facility] Glucose 55(L) 70 - 100 mg/dL LAB CHEMISTRY METHOD 10/10/2024 1:33 PM EDT [facility] BUN 20 5 - 25 mg/dL LAB CHEMISTRY METHOD 10/10/2024 1:33 PM [facility] Creatinine 0.94 0.70 - 1.30 mg/dL LAB CHEMISTRY METHOD 10/10/2024 1:33 PM [facility] eGFR 82 >=60 mL/min/1. 73m2 LAB CHEMISTRY METHOD 10/10/2024 1:33 PM T [facility] Comment:Calculation based on the Chronic Kidney Disease Epidemiology Collaboration (CKD-EPI) equation refit without adjustment for race. BUN/Creatinine Ratio 21.3 LAB CHEMISTRY METHOD 10/10/2024 1:33 PM [facility] Calcium 8.1(L) 8.5 - 10.5 mg/dL LAB CHEMISTRY METHOD 10/10/2024 1:33 PM [facility] Blood Venous blood specimen / Unknown Venipuncture / Unknown 10/10/2024 5:26 AM EDT 10/10/2024 12:10 PM EDT us Jake Sheets MD LAB BLOOD ORDERABLES Final Resul t [facility] [address] [place] [address], * (ABNORMAL) Complete blood count (10/10/2024 5:26 AM EDT) WBC 11.3(H) 4.8 - 10.8 K/mcL LAB HEMETOLOGY METHOD 10/10/2024 1:40 PM EDT [facility] RBC 4.40(L) 4.50 - 5.50 M/mcL LAB HEMETOLOGY METHOD 10/10/2024 1:40 PM EDT [facility] Hemoglobin 13.0(L) 13.5 - 17.5 g/dL LAB HEMETOLOGY METHOD 10/10/2024 1:40 PM EDT [facility] Hematocrit 41.3(L) 42.0 - 54.0 % LAB HEMETOLOGY METHOD 10/10[facility]2024 [facility] MCV 93.2 79.0 - 98.0 FL LAB HEMETOLOGY METHOD 10/10/2024 1:[facility] MCH 29.3 27.0 - 32.0 pcg LAB HEMETOLOGY METHOD 10/10/2024 1:40 [facility] MCHC 31.5(L) 32.0 - 37.0 g/dL LAB HEMETOLOGY METHOD 10/10/2024 1:40 [facility] RDW 14.5 11.0 - 15.0 % LAB HEMETOLOGY METHOD 10/10/2024 1:40 PM EDT [facility] Platelets 378 130 - 400 K/mcL LAB HEMETOLOGY METHOD 10/10/2024 1:[facility] MPV 10.6 7.0 - 11.0 FL LAB HEMETOLOGY METHOD 10/10/2024 1:40 PM EDT [facility] NRBC 0.0 <1.0 % LAB HEMETOLOGY METHOD 10/10/2024 1:40 PM EDT [facility] NRBC Absolute 0.00 <0.10 K/mcL LAB HEMETOLOGY METHOD 10/10/2024 1:40 PM EDT [facility] Blood Venous blood specimen / Unknown Venipuncture / Unknown 10/10/2024 5:26 AM EDT 10/10/2024 12:10 PM EDT us Jake Sheets MD LAB BLOOD ORDERABLES Final Resul t [facility] [address] [place] [address], documented in this encounter Visit Diagnoses Diagnosis Elevated white blood cell count, unspecified Generalized abdominal pain Abdominal pain, generalized documented in this encounter Care Teams Blindstitch Hemmer Relationship Specialty Start Date End Date Jake Sheets MD [address] [place] [address], [phone] PCP - General Family Medicine 10/10/24 documented as of this encounter
--- OUTSIDE RECORDS SUMMARY | 2024-10-23 14:39 | XMS_ITS | Encounter Summary ---
Author Organization [facility] Address [address] [place] [address] Phone Care Team Providers Care Commercial Escrow Officer Name Role Phone Ervin Stanford MD Primary Care Provider Unava ilable Encounter Details Date Type Department Care Team (Late st Contact Info) Description 01/10/2019 Procedure Pass OR Admitting Dept - Virtual Department [address] [place] [address] Social History Tobacco Use Types Packs/Day Years Used Date Smoking Tobacco: Never Smokeless Tobacco: Never Alcohol Use Standard Drinks/Week Comments No 0 (1 standard drink = 0.6 oz pur e alcohol) Sex and Gender Information Value Date Recorded Sex Assigned at Not on file Legal Sex Male 7:09 PM EST Gender Identity Not on file Sexual Orientation Not on file documented as of this encounter Plan of Treatment Not on file documented as of this encounter Visit Diagnoses Not on filedocumented in this encounter Care Teams Commercial Escrow Officer Relationship Specialty Start Date End Date Ervin Stanford MD PCP - General 09/25/13 documented as of this encounter Additional Source Comments The information contained in this document represents components of the legal health record. It is not the complete legal health record.[facility]
== END 2024-10-23 14:55 | disposition home or self-care (01) ==
LOC: HO.HOS 13:54
PROVIDERS: PCP Nurse Practitioner Primary Care; Visit Provider Physician Assistant
DX: S42.002A Fracture of unspecified part of left clavicle, initial encounter for closed fracture (principal)
CPT/HCPCS: 99213

== ENCOUNTER → 2024-10-23 13:53 | Outpatient (BNVA) | payer MEDICARE, SELFPAY | PROVIDERS: PCP Nurse Practitioner Primary Care; Visit Provider Physician Assistant | DX: S42.002A Fracture of unspecified part of left clavicle, initial encounter for closed fracture (principal) | CPT/HCPCS: 99212 ==

== ENCOUNTER 2024-11-22 08:07 | Outpatient (REF) | payer MEDICARE, SELFPAY | END 2024-11-22 08:08 | disposition home or self-care (01) | LOC: HO.HOSX 08:07 | PROVIDERS: Visit Provider Physician Assistant | DX: Z13.89 Encounter for screening for other disorder (principal) ==